=== PATIENT | male | born 1935 | race Caucasian/White ===

== ENCOUNTER 2017-02-17 06:26 | Inpatient (IN) | payer MEDICARE ==
[2017-02-17] MEDS ORDERED: SODIUM CHLORIDE 0.9% 1,000 ML IV STA (07:23)
[2017-02-17] MEDS ORDERED: MIDAZOLAM (PF) 1 MG/ML 5 ML VIAL IV STA ×2 (07:23→08:56)
--- NOTE | 2017-02-17 07:39 | XR ---
EXAMINATION TYPE: XR humerus LT DATE OF EXAM: 02/17/2017 7:20 AM CLINICAL HISTORY: pain TECHNIQUE: Frontal and lateral images of the left humerus are obtained. COMPARISON: None. FINDINGS: There is anterior shoulder dislocation noted. Widening of the AC joint may reflect distal clavicular resection. Correlate with patient history. No fracture identified. Visualized ribs are cassandra ssly intact. IMPRESSION: Anterior shoulder dislocation ICD 10 NO FRACTURE, INITIAL EVALUATION
[2017-02-17] MEDS: KETAMINE 10 MG/ML 20 ML VIAL IV ONE ×3 (08:16→09:17)
--- NOTE | 2017-02-17 08:43 | ED ---
General Adult HPI - General Chief complaint: Fall Stated complaint: Fall Time Seen by Provider: 02/17/17 07:21 Source: patient, RN notes reviewed, old records reviewed Mode of arrival: ambulatory - History of Present Illness Initial comments: This is an 81-year-old male the ER for evaluation of shoulder pain. Vision fell getting out of bed this morning. Following on an outstretched left arm. Patient only complains of left arm and left elbow pain. Patient is brought in per EMS. Patient denies hitting head, not on blood thinners. Patient's fall was mechanical in nature. Trip and fall. No prior history of shoulder injury - Related Data Home Medications Medication Instructions Recorded Confirmed Insulin Glargine,Hum.rec.anlog 16 units SQ HS 08/24/14 02/17/17 [Lantus Solostar] Levothyroxine Sodium [Synthroid] 25 mcg PO DAILY 08/24/14 02/17/17 Losartan Potassium 50 mg PO DAILY 08/24/14 02/17/17 Temazepam 15 mg PO HS PRN 08/24/14 02/17/17 rOPINIRole HCL [Ropinirole HCl] 2 mg PO TID 08/24/14 02/17/17 Ibuprofen [Motrin] 600 mg PO TID PRN 02/17/17 02/17/17 Insulin Aspart [NovoLOG] 4 unit SQ ACHS 02/17/17 02/17/17 Meclizine [Antivert] 25 mg PO Q8H PRN 02/17/17 02/17/17 Multivitamins, Thera [Multivitamin 1 tab PO DAILY@1200 02/17/17 02/17/17 (formulary)] Spironolactone-Hctz 25-25Mg 1 tab PO DAILY 02/17/17 02/17/17 [Aldactazide 25-25Mg] Previous Rx's Medication Instructions Recorded Thiamine [Vitamin B-1] 100 mg PO DAILY@1200 #30 tablet 08/29/14 Allergies Allergy/AdvReac Type Severity Reaction Status Date / Time No Known Allergies Allergy Verified 02/17/17 07:35 Review of Systems ROS Statement: Those systems with pertinent positive or pertinent negative responses have been documented in the HPI. ROS Other: All systems not noted in ROS Statement are negative. Past Medical History Past Medical History: Diabetes Mellitus, Hyperlipidemia, Hypertension, Thyroid Disorder Additional Past Medical History / Comment(s): restless leg syndrome History of Any Multi-Drug Resistant Organisms: None Reported Past Surgical History: No Surgical Hx Reported, Cholecystectomy Past Anesthesia/Blood Transfusion Reactions: No Reported Reaction Past Psychological History: No Psychological Hx Reported Smoking Status: Former smoker Past Alcohol Use History: Daily Past Drug Use History: None Reported General Exam - General Exam Comments Initial Comments: Obvious left shoulder deformity General appearance: alert, in no apparent distress Head exam: Present: atraumatic, normocephalic, normal inspection Eye exam: Present: normal appearance, PERRL, EOMI. Absent: scleral icterus, conjunctival injection, periorbital swelling ENT exam: Present: normal exam, mucous membranes moist Neck exam: Present: normal inspection. Absent: tenderness, meningismus, lymphadenopathy Respiratory exam: Present: normal lung sounds bilaterally. Absent: respiratory distress, wheezes, rales, rhonchi, stridor Cardiovascular Exam: Present: regular rate, normal rhythm, normal heart sounds. Absent: systolic murmur, diastolic murmur, rubs, gallop, clicks GI/Abdominal exam: Present: soft, normal bowel sounds. Absent: distended, tenderness, guarding, rebound, rigid Extremities exam: Present: normal inspection, full ROM, normal capillary refill. Absent: tenderness, pedal edema, joint swelling, calf tenderness Back exam: Present: normal inspection Neurological exam: Present: alert, oriented X3, CN II-XII intact Psychiatric exam: Present: normal affect, normal mood Skin exam: Present: warm, dry, intact, normal color. Absent: rash Course Vital Signs 02/17/17 06:28 Temperature 96.9 F L Pulse Rate 92 Respiratory 20 Rate Blood Pressure 139/78 O2 Sat by Pulse 98 Oximetry - Reevaluation(s) Reevaluation #1: 02/17/17 08:42 Patient's pain is controlled Reevaluation #2: 02/17/17 08:43 Patient currently awake alert breathing, able to ambulate Procedures - Orthopedic Joint Reduction Joint #1 Consent Obtained: verbal consent Time Out Performed: Yes Side: left Joint Reduction Location: shoulder Analgesia: procedural sedation Shoulder Technique Used (if applicable): traction/counter-traction, external rotation Post-Reduction Neuro Exam: intact Post-Reduction Vascular Exam: intact Post Reduction X-Ray Obtained: Yes Post Reduction X-Ray Results: reduced Splint Applied: Yes Patient Tolerated Procedure: well Medical Decision Making - Medical Decision Making 8 emailed the ER for evaluation status post fall, positive of sore dislocation, patient has shoulder relocated here in emergency room I conscious sedation, patient is currently awake and alert, post dislocation x-ray is normal and patient will be discharged home with sling - Radiology Data Radiology results: report reviewed, image reviewed Disposition Clinical Impression: Fall, Dislocation of left shoulder joint Disposition: HOME SELF-CARE Condition: Good Instructions: Shoulder Dislocation (ED) Referrals: Roma Butler MD [Primary Care Provider] - 1-2 days
[2017-02-17] MEDS ORDERED: KETAMINE 10 MG/ML 20 ML VIAL IV ONE ×2 (08:56)
--- NOTE | 2017-02-17 09:01 | XR ---
EXAMINATION TYPE: XR shoulder limited LT DATE OF EXAM: 02/17/2017 8:57 AM COMPARISON: NONE HISTORY: Post reduction TECHNIQUE: One view are submitted. FINDINGS: Persistent anterior dislocation of the humeral head. No definite fracture line. Arthropathy of the AC joint. IMPRESSION: 1. Anterior dislocation of the humeral head.
[2017-02-17 09:58] LABS: Glucose,Whole Blood 80 mg/dL (75-99)
[2017-02-17] MEDS ORDERED: DIAZEPAM 5 MG/ML 2 ML SYRINGE IVP PRN (10:09)
[2017-02-17] MEDS ORDERED: HYDROmorphone 1 MG/ML 1 ML SYRINGE IVP STA (10:13)
--- NOTE | 2017-02-17 10:25 | ED ---
Medical Decision Making - Medical Decision Making 81 male the ER for evaluation of shoulder dislocation, reduction, after initial reduction, patient shoulder read dislocated upon movement. Patient had attempt to relocate shoulder again by myself, was unsuccessful. Orthopedic surgery paged regarding recurrent left anterior shoulder dislocation Orthopedic surgery did attempt reduction in emergency room, unsuccessful, patient will be admitted for operating room left shoulder reduction - Lab Data Lab Results 02/17/17 Range/Units 09:49 POC Glucose (mg/dL) 80 (75-99) mg/dL POC Glu Mine Boss ID Cristine Wall - Radiology Data Radiology results: report reviewed (X-ray left shoulder remains with positive left shoulder dislocation), image reviewed Disposition Clinical Impression: Fall, Dislocation of left shoulder joint Disposition: ADMITTED IP TO THIS HOSP Condition: Good Instructions: Shoulder Dislocation (ED) Referrals: Roma Butler MD [Primary Care Provider] - 1-2 days
[2017-02-17] MEDS: SODIUM CHLORIDE 0.9% 1,000 ML IV STA ×2 (10:27→16:36)
[2017-02-17] MEDS ORDERED: LIDOCAINE 1% INJ 10MG/ML (20 ML MDV) SQ ONE (10:42)
--- NOTE | 2017-02-17 12:42 | CT ---
EXAMINATION TYPE: CT shoulder LT wo con DATE OF EXAM: 02/17/2017 12:22 PM COMPARISON: NONE HISTORY: Fell out of bed injured left shoulder CT DLP: 443 mGycm Automated exposure control for dose reduction was used. FINDINGS: There is dependent atelectasis within the left lung. There is stranding in the fat anterior to the left shoulder. There is an anterior dislocation of the left shoulder. There is an undisplaced fracture of the anteri or tip of the coracoid process of the scapula. No definite bony Bankart lesion is seen. No other frac tures are visualized. IMPRESSION: 1. ANTERIOR DISLOCATION LEFT SHOULDER. 2. MINIMALLY DISPLACED FRACTURE OF THE ANTERIOR TIP OF THE CORACOID PROCESS. 3. BRUISING INVOLVING THE SOFT TISSUES OF THE ANTERIOR ASPECT OF THE SHOULDER.
[2017-02-17] MEDS ORDERED: ONDANSETRON 4 MG/2 ML VIAL IVP PRN ×2 (13:06→19:42)
[2017-02-17] MEDS ORDERED: NA PHOS,M-B/NA PHOS,DI-BA 133 ML ENEMA RECTAL PRN (13:06)
[2017-02-17] MEDS ORDERED: NALOXONE 0.4 MG/ML 1 ML VIAL IV PRN (13:06)
[2017-02-17] MEDS ORDERED: MAGNESIUM HYDROXIDE 2,400 MG/10 ML CUP PO PRN (13:06)
[2017-02-17] MEDS ORDERED: ALBUTEROL NEBULIZED 2.5 MG/3 ML INHALATION PRN (14:35)
[2017-02-17] MEDS ORDERED: MECLIZINE 25 MG TAB PO PRN (14:35)
[2017-02-17] MEDS ORDERED: LORazepam 2 MG/ML SYRINGE IV PRN ×3 (14:43)
--- NOTE | 2017-02-17 15:00 | P.CONS ---
History of Present Illness - Reason for Consult Consult date: 02/17/17 Medical management Requesting physician: Hal Jose - Chief Complaint Left shoulder dislocation - History of Present Illness This is a 81-year-old male with a known past medical history of diabetes mellitus type 2, hyperlipidemia, hypertension, hypothyroidism, asthma and restless leg syndrome. Patient presents to the emergency room with complaints of left shoulder pain. Patient reports this morning while he was sleeping he asked daily rolled out of bed hitting his left shoulder. He was unable to get up. He was able to reach for the phone and called EMS. They brought him into the emergency room. X-rays of the shoulder were obtained revealing revealing a anterior shoulder dislocation. Patient initially had the shoulder relocated in the emergency room with conscious sedation at that time he did require a nonrebreather. However, before patient was discharged he moved and the shoulder dislocated again. Orthopedics were notified they tried to reduce shoulder but was unsuccessful. Therefore, patient will require to be taken to the OR. We been consulted for medical clearance. Chest x-ray, EKG, CBC and CMP have been ordered. Patient has no evidence of any acute infection. He denies any fever, chills, sweats. Denies any nausea or vomiting. Denies any bowel movement changes or urinary symptoms. She denies any rashes. Denies any chest pain or shortness of breath. Also, patient denies any loss of consciousness or hitting his head or in the fall. Patient denies any history of coronary artery disease, congestive heart failure, renal failure or CVA. He reports that he can ambulate up a flight of stairs without shortness of breath. He reports the last time he used his inhaler was about a month ago. Review of Systems Please refer to HPI otherwise unremarkable Past Medical History Past Medical History: Asthma, Diabetes Mellitus, Eye Disorder, Hyperlipidemia, Hypertension, Prostate Disorder, Thyroid Disorder Additional Past Medical History / Comment(s): IDDM type II, hypothyroid, generalized arthritis, restless leg syndrome, BPH, occasional vertigo, L eye lskmed-kruafnnchbd-bhzqf glass eye, mac degeneration L eye-gets injections. History of Any Multi-Drug Resistant Organisms: None Reported Past Surgical History: Cholecystectomy Additional Past Surgical History / Comment(s): 2013 Open cholecystectomy, colonoscopies x 3, L eye numerous surgeries and eventual enucleation. Past Anesthesia/Blood Transfusion Reactions: No Reported Reaction Past Psychological History: No Psychological Hx Reported Additional Psychological History / Comment(s): Pt resides alone. He has a cane and walker. He drives a limited amount. He has a cleaning lady. Pt performs his own ADLs. He goes to lunch with [employer] on [employer]. Smoking Status: Former smoker Past Alcohol Use History: Daily Additional Past Alcohol Use History / Comment(s): Pt started smoking as a teen and quit in 1986. He drinks 2 beers a day. Past Drug Use History: None Reported - Past Family History Father Family Medical History: No Reported History Mother Family Medical History: Cancer Additional Family Medical History / Comment(s): Mother of metastatic cancer at the age of 54yrs. old. Medications and Allergies Home Medications Medication Instructions Recorded Confirmed Type Insulin Glargine,Hum.rec.anlog 12 units SQ HS 08/24/14 02/17/17 History [Lantus Solostar] Levothyroxine Sodium [Synthroid] 25 mcg PO DAILY 08/24/14 02/17/17 History Losartan Potassium 50 mg PO DAILY 08/24/14 02/17/17 History Temazepam 15 mg PO HS PRN 08/24/14 02/17/17 History rOPINIRole HCL [Ropinirole HCl] 2 mg PO TID 08/24/14 02/17/17 History Albuterol Inhaler [Ventolin Hfa 2 puff INHALATION RT-Q4H PRN 02/17/17 02/17/17 History Inhaler] Aspirin EC [Ecotrin Low Dose] 81 mg PO DAILY 02/17/17 02/17/17 History Cholecalciferol [Vitamin D3] 1,000 unit PO DAILY 02/17/17 02/17/17 History Ferrous Sulfate [Feosol] 325 mg PO DAILY 02/17/17 02/17/17 History Fesoterodine Fumarate [Toviaz] 4 mg PO DAILY 02/17/17 02/17/17 History Folic Acid 1 mg PO DAILY 02/17/17 02/17/17 History Furosemide [Lasix] 20 mg PO DAILY 02/17/17 02/17/17 History Ibuprofen [Motrin] 600 mg PO TID PRN 02/17/17 02/17/17 History Insulin Aspart [NovoLOG] See Protocol SQ ACHS 02/17/17 02/17/17 History Meclizine [Antivert] 25 mg PO Q8H PRN 02/17/17 02/17/17 History Melatonin 20 mg PO HS 02/17/17 02/17/17 History Multivitamins, Thera [Multivitamin 1 tab PO DAILY@1200 02/17/17 02/17/17 History (formulary)] Spironolactone-Hctz 25-25Mg 1 tab PO DAILY 02/17/17 02/17/17 History [Aldactazide 25-25Mg] Tadalafil [Cialis] 20 mg PO ONCE PRN 02/17/17 02/17/17 History Tamsulosin HCl [Flomax] 0.8 mg PO HS 02/17/17 02/17/17 History Trospium Chloride [Sanctura XR] 60 mg PO DAILY 02/17/17 02/17/17 History Allergies Allergy/AdvReac Type Severity Reaction Status Date / Time No Known Allergies Allergy Verified 02/17/17 07:35 Physical Exam Vitals: Vital Signs Pulse Resp BP Pulse Ox 02/17/17 14:21 88 18 147/67 100 02/17/17 13:18 81 18 129/62 100 Intake and Output 02/16/17 02/17/17 02/17/17 22:59 06:59 14:59 Output Total 300 Balance -300 Output: Urine 300 Head normocephalic. Last eye the left eye Neck supple Lungs clear to auscultation bilaterally no wheezing or crackles Heart regular rate and rhythm S1-S2, no rub or gallop Abdomen is soft nontender nondistended positive bowel sounds no hepatosplenomegaly Extremities no edema bilateral lower extremities. Left arm +2 radial pulse. There is significant swelling and bruising in the left shoulder area. Patient is unable to move that left arm. Neuro alert and orientated to 3 Assessment and Plan Plan: 1. Anterior dislocation of the left shoulder with minimal displaced fracture of the anterior tip of the coracoid process noted on computed tomography scan of the left shoulder. Patient failed reduction of the left shoulder in the emergency room. Therefore patient has been admitted to orthopedic service and will be taken to the OR tomorrow for reduction of his shoulder. For medical clearance we'll check EKG, chest x-ray, CBC and CMP. We'll give further recommendations depending on results. 2. Insulin-dependent diabetes mellitus: Resume Lantus. We'll add sliding scale coverage. Check hemoglobin A1c. 3. Essential hypertension resume losartan and Aldactazide 4. Overactive bladder resume home medications 5. History of mild asthma: No evidence of exacerbation continue with albuterol inhaler as needed 6. Restless leg syndrome resume his Requip 7. Possible alcohol abuse: Patient reports only drinking 2 beers a day. Home medications include Folic acid, thiamine and multivitamin. Resume these medications and also place patient on the CIWA protocol 8. Hypothyroidism resume Synthroid GI prophylaxis Pepcid and DVT prophylaxis SCDs for now. We'll hold off on anticoagulations since patient is scheduled for [place] or tomorrow Thank you for this consultation. We will continue to follow along with you. Time with Patient: Greater than 30 (Greater than 50% of the total time spent in counseling and coordination of care.I performed an examination of the patient and discussed their management with the physician Benefits Representative. I have reviewed the Physician Benefits Representative's notes and agree with the documented findings and plan of care)
--- NOTE | 2017-02-17 15:22 | XR ---
EXAMINATION TYPE: XR chest 1V portable DATE OF EXAM: 02/17/2017 3:17 PM HISTORY: pre-op clearance. REFERENCE: Previous study dated 08/29/2014. FINDINGS: There is an anterior dislocation of the left shoulder. The heart is mildly enlarged. There is mild bibasilar atelectasis. Pleural spaces appear clear. IMPRESSION: 1. ANTERIOR DISLOCATION OF THE LEFT SHOULDER. 2. MILD CARDIOMEGALY. 3. BIBASILAR ATELECTASIS.
--- NOTE | 2017-02-17 15:40 | P.HPOR ---
History of Present Illness H&P Date: 02/17/17 Chief Complaint: Left shoulder injury This is a pleasant 81-year-old gentleman who presented to the emergency department today after falling directly on an outstretched arm, sustaining injury to his left shoulder. On exam and x-ray in the emergency department he was found to have a dislocated shoulder. Multiple attempts were made by the emergency department and by an orthopedic physician assistant elementary teacher to reduce the shoulder dislocation. All attempts were unsuccessful. The patient is being admitted for further evaluation and surgical intervention. Past Medical History Past Medical History: Asthma, Diabetes Mellitus, Eye Disorder, Hyperlipidemia, Hypertension, Prostate Disorder, Thyroid Disorder Additional Past Medical History / Comment(s): IDDM type II, hypothyroid, generalized arthritis, restless leg syndrome, BPH, occasional vertigo, L eye banpme-meamuxyahwb-nvntq glass eye, mac degeneration L eye-gets injections. History of Any Multi-Drug Resistant Organisms: None Reported Past Surgical History: Cholecystectomy Additional Past Surgical History / Comment(s): 2013 Open cholecystectomy, colonoscopies x 3, L eye numerous surgeries and eventual enucleation. Past Anesthesia/Blood Transfusion Reactions: No Reported Reaction Past Psychological History: No Psychological Hx Reported Additional Psychological History / Comment(s): Pt resides alone. He has a cane and walker. He drives a limited amount. He has a cleaning lady. Pt performs his own ADLs. He goes to lunch with [employer] on [employer]. Smoking Status: Former smoker Past Alcohol Use History: Daily Additional Past Alcohol Use History / Comment(s): Pt started smoking as a teen and quit in 1986. He drinks 2 beers a day. Past Drug Use History: None Reported - Past Family History Father Family Medical History: No Reported History Mother Family Medical History: Cancer Additional Family Medical History / Comment(s): Mother of metastatic cancer at the age of 54yrs. old. Medications and Allergies Home Medications Medication Instructions Recorded Confirmed Type Insulin Glargine,Hum.rec.anlog 12 units SQ HS 08/24/14 02/17/17 History [Lantus Solostar] Levothyroxine Sodium [Synthroid] 25 mcg PO DAILY 08/24/14 02/17/17 History Losartan Potassium 50 mg PO DAILY 08/24/14 02/17/17 History Temazepam 15 mg PO HS PRN 08/24/14 02/17/17 History rOPINIRole HCL [Ropinirole HCl] 2 mg PO TID 08/24/14 02/17/17 History Albuterol Inhaler [Ventolin Hfa 2 puff INHALATION RT-Q4H PRN 02/17/17 02/17/17 History Inhaler] Aspirin EC [Ecotrin Low Dose] 81 mg PO DAILY 02/17/17 02/17/17 History Cholecalciferol [Vitamin D3] 1,000 unit PO DAILY 02/17/17 02/17/17 History Ferrous Sulfate [Feosol] 325 mg PO DAILY 02/17/17 02/17/17 History Fesoterodine Fumarate [Toviaz] 4 mg PO DAILY 02/17/17 02/17/17 History Folic Acid 1 mg PO DAILY 02/17/17 02/17/17 History Furosemide [Lasix] 20 mg PO DAILY 02/17/17 02/17/17 History Ibuprofen [Motrin] 600 mg PO TID PRN 02/17/17 02/17/17 History Insulin Aspart [NovoLOG] See Protocol SQ ACHS 02/17/17 02/17/17 History Meclizine [Antivert] 25 mg PO Q8H PRN 02/17/17 02/17/17 History Melatonin 20 mg PO HS 02/17/17 02/17/17 History Multivitamins, Thera [Multivitamin 1 tab PO DAILY@1200 02/17/17 02/17/17 History (formulary)] Spironolactone-Hctz 25-25Mg 1 tab PO DAILY 02/17/17 02/17/17 History [Aldactazide 25-25Mg] Tadalafil [Cialis] 20 mg PO ONCE PRN 02/17/17 02/17/17 History Tamsulosin HCl [Flomax] 0.8 mg PO HS 02/17/17 02/17/17 History Trospium Chloride [Sanctura XR] 60 mg PO DAILY 02/17/17 02/17/17 History Allergies Allergy/AdvReac Type Severity Reaction Status Date / Time No Known Allergies Allergy Verified 02/17/17 07:35 Physical Examination This is a pleasant 81-year-old gentleman in no acute distress. He is alert and oriented 3. His daughters are present at bedside. Exam of the head neck reveal no obvious deformity. He has full cervical spine motion without difficulty or pain. There is no pain with palpation about the cervical spine or paraspinal musculature. Exam of the upper extremities reveals significant ecchymosis about the shoulder down to the wrist on the left arm. He also has bruising to the right upper extremity. There is pain with any attempt of motion to the left shoulder. He has full wrist and finger motion without difficulty or pain. Neurovascular status to the left upper extremity is intact. Exam the lower extremities reveals no obvious deformity. He can raise each leg off the bed independently without pain. No pain with internal or external rotation of the hips. He has full foot and ankle motion bilaterally. Neurovascular status to the lower extremities is intact. Results X-rays of the left shoulder reveal a dislocated glenohumeral joint. It appears to be an anterior dislocation. Computed tomography scan reveals a nondisplaced coracoid fracture. Anterior glenohumeral joint dislocation noted. Assessment and Plan (1) Fracture of coracoid process of left scapula Status: Acute (2) Dislocation of left shoulder joint Status: Acute (3) Fall Status: Acute Plan: The clinical and x-ray findings are discussed with the patient and his family. With multiple failed attempts to reduce the shoulder in the emergency department , it is recommended that he go to the operating room for general anesthesia and closed reduction with possible open reduction of the shoulder. The procedures discussed in detail including the possible risks and outcomes of surgery. We will await medical clearance by Dr. Butler.
[2017-02-17 16:12] LABS: Basophils % (A) 0 %; CH 33.2; CHCM 32.1; Eosinophils % (A) 0 %; HCT 32.4 % (39.0-53.0); HDW 2.22; HGB 10.5 gm/dL (13.0-17.5); Luc % (Auto) 2; Lymphocytes # (A) 0.6 k/uL (1.0-4.8); Lymphocytes % (A) 10 %; MCH 33.5 pg (25.0-35.0); MCHC 32.3 g/dL (31.0-37.0); MCV 103.8 fL (80.0-100.0); Macrocytosis Slight; Mean Platelet Volume 7.2; Monocytes # (A) 0.4 k/uL (0-1.0); Monocytes % (A) 7 %; Neutrophils # (A) 4.9 k/uL (1.3-7.7); Neutrophils % (A) 82 %; RBC 3.12 m/uL (4.30-5.90); RDW 12.7 % (11.5-15.5); WBC (Perox) 6.13
[2017-02-17 16:31] LABS: ALT 34 U/L (21-72); AST 67 U/L (17-59); Alkaline Phosphatase 63 U/L (38-126); Anion Gap 8 mmol/L; Blood Urea Nitrogen 21 mg/dL (9-20); Calcium 8.7 mg/dL (8.4-10.2); Carbon Dioxide 24 mmol/L (22-30); Chloride 103 mmol/L (98-107); Glucose 70 mg/dL (74-99); Non-African American GFR(MDRD) >60 (>60 ml/min/1.73 sqM); Potassium 4.7 mmol/L (3.5-5.1); Sodium 135 mmol/L (137-145); Total Protein 5.7 g/dL (6.3-8.2)
[2017-02-17] MEDS: LEVOTHYROXINE 25 MCG TAB PO SCH (16:36)
[2017-02-17] MEDS: FAMOTIDINE 20 MG TAB PO SCH (16:36)
[2017-02-17] MEDS: LOSARTAN 50 MG TAB PO SCH (16:36)
[2017-02-17] MEDS ORDERED: MORPHINE SULFATE 2 MG/ML SYRINGE IVP PRN (16:51)
[2017-02-17 17:39] LABS: Glucose,Whole Blood 64 mg/dL (75-99)
[2017-02-17] MEDS: INSULIN LISPRO (humaLOG) 300 UNIT/3 ML VIAL SQ SCH ×2 (18:09→20:32)
[2017-02-17] MEDS: HYDROmorphone 1 MG/ML 1 ML SYRINGE IVP PRN (20:08)
[2017-02-17 20:20] LABS: Glucose,Whole Blood 87 mg/dL (75-99)
[2017-02-17] MEDS ORDERED: TEMAZEPAM 15 MG CAP PO PRN ×2 (21:00)
[2017-02-17] MEDS: MELATONIN 5 MG TABLET PO SCH (21:06)
[2017-02-17] MEDS: TAMSULOSIN 0.4 MG CAP.ER.24H PO SCH (21:06)
[2017-02-17] MEDS: INSULIN GLARGINE 100 UNIT/ML 10 ML VIAL SQ SCH (21:08)
[2017-02-17 21:34] LABS: Hemoglobin A1C 6.8 % (4.2-6.1)
[2017-02-18] MEDS: LEVOTHYROXINE 25 MCG TAB PO SCH (05:57)
[2017-02-18] MEDS: HYDROmorphone 1 MG/ML 1 ML SYRINGE IVP PRN ×2 (05:57→09:30)
[2017-02-18] MEDS: INSULIN LISPRO (humaLOG) 300 UNIT/3 ML VIAL SQ SCH ×4 (07:52→20:28)
[2017-02-18 07:55] LABS: Glucose,Whole Blood 152 mg/dL (75-99)
[2017-02-18] MEDS: FERROUS SULFATE 325 MG TAB PO SCH (07:55)
[2017-02-18] MEDS: FUROSEMIDE 20 MG TAB PO SCH (07:55)
[2017-02-18] MEDS: FAMOTIDINE 20 MG TAB PO SCH (07:55)
[2017-02-18] MEDS: CHOLECALCIFEROL 1,000 UNIT TAB PO SCH (07:55)
[2017-02-18] MEDS: OXYBUTYNIN XL 5 MG TAB.ER.24 PO SCH (07:56)
[2017-02-18] MEDS: LOSARTAN 50 MG TAB PO SCH (07:56)
[2017-02-18] MEDS: SPIRONOLACTONE-HCTZ 25-25MG 1 EACH TAB PO SCH (07:57)
[2017-02-18 07:58] LABS: Basophils % (A) 1 %; CH 33.6; CHCM 32.8; Eosinophils % (A) 0 %; HCT 28.2 % (39.0-53.0); HDW 2.29; HGB 9.3 gm/dL (13.0-17.5); Luc # (Auto) 0.07; Luc % (Auto) 2; Lymphocytes # (A) 0.5 k/uL (1.0-4.8); Lymphocytes % (A) 10 %; MCH 33.9 pg (25.0-35.0); MCV 102.8 fL (80.0-100.0); Macrocytosis Slight; Mean Platelet Volume 7.2; Monocytes # (A) 0.4 k/uL (0-1.0); Monocytes % (A) 10 %; Neutrophils # (A) 3.4 k/uL (1.3-7.7); Neutrophils % (A) 77 %; RBC 2.75 m/uL (4.30-5.90); RDW 12.5 % (11.5-15.5); WBC 4.4 k/uL (3.8-10.6); WBC (Perox) 4.55
[2017-02-18 08:15] LABS: ALT 35 U/L (21-72); AST 60 U/L (17-59); Alkaline Phosphatase 57 U/L (38-126); Anion Gap 8 mmol/L; Blood Urea Nitrogen 18 mg/dL (9-20); Calcium 8.5 mg/dL (8.4-10.2); Carbon Dioxide 20 mmol/L (22-30); Chloride 104 mmol/L (98-107); Glucose 149 mg/dL (74-99); Non-African American GFR(MDRD) >60 (>60 ml/min/1.73 sqM); Potassium 4.4 mmol/L (3.5-5.1); Sodium 132 mmol/L (137-145); Total Bilirubin 1.1 mg/dL (0.2-1.3); Total Protein 4.9 g/dL (6.3-8.2)
[2017-02-18] MEDS ORDERED: OXYBUTYNIN XL 5 MG TAB.ER.24 PO SCH (09:00)
--- NOTE | 2017-02-18 10:49 | P.PN ---
Subjective Patient is awaiting for surgery today at 1 Objective - Vital Signs Vital signs: Vital Signs Temp 97.9 F 02/18/17 07:00 Pulse 83 02/18/17 07:00 Resp 16 02/18/17 07:00 BP 114/54 02/18/17 07:00 Pulse Ox 97 02/18/17 07:00 Intake & Output 02/17/17 02/18/17 02/18/17 18:59 06:59 18:59 Intake Total 1218 Output Total 475 500 Balance -475 718 Intake: Intake, IV Titration 1100 Amount Sodium Chloride 0.9% 1, 1100 000 ml @ 100 mls/hr IV . Q10H [facility] Rx#:[id number] Oral 118 Output: Urine 475 500 Other: Voiding Method Urinal # Voids 1 - Exam General: The patient is awake and alert, in no distress Eye: there is normal conjunctiva bilaterally. Neck: The neck is supple, there is no JVD. Cardiovascular: Normal S1-S2, no S3-S4, no murmurs. Respiratory: Lungs clear to auscultation bilaterally Gastrointestinal: Abdomen is soft, nontender Musculoskeletal: There is no pedal edema. Neurological:. Speech is normal. Skin: Skin is warm and dry - Labs CBC & Chem 7: 02/18/17 07:09 02/18/17 07:09 Labs: Abnormal Lab Results - Last 24 Hours (Table) 02/17/17 02/17/17 02/17/17 Range/Units 15:55 15:55 15:55 RBC 3.12 L (4.30-5.90) m/uL Hgb 10.5 L (13.0-17.5) gm/dL Hct 32.4 L (39.0-53.0) % MCV 103.8 H (80.0-100.0) fL Plt Count (150-450) k/uL Lymphocytes # 0.6 L (1.0-4.8) k/uL Sodium 135 L (137-145) mmol/L Carbon Dioxide (22-30) mmol/L BUN 21 H (9-20) mg/dL Glucose 70 L (74-99) mg/dL POC Glucose (mg/dL) (75-99) mg/dL Hemoglobin A1c 6.8 H (4.2-6.1) % AST 67 H (17-59) U/L Total Protein 5.7 L (6.3-8.2) g/dL Albumin (3.5-5.0) g/dL 02/17/17 02/18/17 02/18/17 Range/Units 17:31 07:09 07:09 RBC 2.75 L (4.30-5.90) m/uL Hgb 9.3 L (13.0-17.5) gm/dL Hct 28.2 L (39.0-53.0) % MCV 102.8 H (80.0-100.0) fL Plt Count 139 L (150-450) k/uL Lymphocytes # 0.5 L (1.0-4.8) k/uL Sodium 132 L (137-145) mmol/L Carbon Dioxide 20 L (22-30) mmol/L BUN (9-20) mg/dL Glucose 149 H (74-99) mg/dL POC Glucose (mg/dL) 64 L (75-99) mg/dL Hemoglobin A1c (4.2-6.1) % AST 60 H (17-59) U/L Total Protein 4.9 L (6.3-8.2) g/dL Albumin 2.9 L (3.5-5.0) g/dL 02/18/17 Range/Units 07:49 RBC (4.30-5.90) m/uL Hgb (13.0-17.5) gm/dL Hct (39.0-53.0) % MCV (80.0-100.0) fL Plt Count (150-450) k/uL Lymphocytes # (1.0-4.8) k/uL Sodium (137-145) mmol/L Carbon Dioxide (22-30) mmol/L BUN (9-20) mg/dL Glucose (74-99) mg/dL POC Glucose (mg/dL) 152 H (75-99) mg/dL Hemoglobin A1c (4.2-6.1) % AST (17-59) U/L Total Protein (6.3-8.2) g/dL Albumin (3.5-5.0) g/dL Assessment and Plan Plan: 1. Anterior dislocation of the left shoulder with minimal displaced fracture of the anterior tip of the coracoid process noted on computed tomography scan of the left shoulder. Patient failed reduction of the left shoulder in the emergency room. Therefore patient has been admitted to orthopedic service and will be taken to the OR today for reduction of his shoulder. 2. Insulin-dependent diabetes mellitus: Resume Lantus. We'll add sliding scale coverage. Check hemoglobin A1c. 3. Essential hypertension resume losartan and Aldactazide 4. Overactive bladder resume home medications 5. History of mild asthma: No evidence of exacerbation continue with albuterol inhaler as needed 6. Restless leg syndrome resume his Requip 7. Possible alcohol abuse: Patient reports only drinking 2 beers a day. Home medications include Folic acid, thiamine and multivitamin. Resume these medications and also place patient on the CIWA protocol 8. Hypothyroidism resume Synthroid
[2017-02-18] MEDS: FOLIC ACID 1 MG TAB PO SCH (11:00)
[2017-02-18] MEDS: MULTIVITAMINS, THERA 1 EACH TAB PO SCH (11:01)
[2017-02-18] MEDS: THIAMINE 100 MG TAB PO SCH (11:01)
[2017-02-18] MEDS ORDERED: ROPIVACAINE 5 MG/ML 30 ML VIAL ONE (11:03)
[2017-02-18] MEDS ORDERED: IV FLUID CONTINUATION 200 ML IV ONE (11:03)
[2017-02-18] MEDS ORDERED: PROPOFOL 10 MG/ML 20 ML VIAL IV ONE (11:03)
[2017-02-18] MEDS ORDERED: LACTATED RINGERS 1,000 ML IV ONE (11:10)
[2017-02-18] MEDS ORDERED: SENNOSIDES-DOCUSATE SODIUM 1 EACH TAB PO PRN (11:32)
[2017-02-18] MEDS ORDERED: HYDROmorphone 1 MG/ML 1 ML SYRINGE IVP PRN ×3 (11:32)
[2017-02-18] MEDS ORDERED: diphenhydrAMINE 25 MG CAP PO PRN (11:32)
--- NOTE | 2017-02-18 11:38 | XR ---
EXAMINATION TYPE: XR shoulder limited LT DATE OF EXAM: 02/18/2017 11:34 AM COMPARISON: NONE HISTORY: ] Reduction left shoulder Fluoroscopy was provided for closed left shoulder reduction. 2 paper images are submitted.
--- NOTE | 2017-02-18 11:52 | XR ---
EXAMINATION TYPE: XR shoulder limited LT DATE OF EXAM: 02/18/2017 11:46 AM CLINICAL HISTORY: pain COMPARISON: 02/17/2017 TECHNIQUE: Single view of the left shoulder is submitted. FINDINGS: Relocation of the humerus relative to the glenoid. No definite evidence for fracture. Posto perative changes distal clavicle. IMPRESSION: 1. Appropriate reduction of the left shoulder. ICD 10 NO FRACTURE, INITIAL EVALUATION
[2017-02-18 11:56] LABS: Glucose,Whole Blood 134 mg/dL (75-99)
[2017-02-18 12:30] LABS: Glucose,Whole Blood 147 mg/dL (75-99)
[2017-02-18] MEDS: LACTATED RINGERS 1,000 ML IV SCH (14:33)
[2017-02-18 16:45] LABS: Glucose,Whole Blood 206 mg/dL (75-99)
[2017-02-18 20:13] LABS: Glucose,Whole Blood 241 mg/dL (75-99)
[2017-02-18] MEDS: INSULIN GLARGINE 100 UNIT/ML 10 ML VIAL SQ SCH (20:27)
[2017-02-18] MEDS: TAMSULOSIN 0.4 MG CAP.ER.24H PO SCH (20:27)
[2017-02-18] MEDS: MELATONIN 5 MG TABLET PO SCH (20:28)
[2017-02-18] MEDS ORDERED: HYDROmorphone 1 MG/ML 1 ML SYRINGE ONE (23:22)
[2017-02-19] MEDS: HYDROmorphone 1 MG/ML 1 ML SYRINGE IVP PRN ×2 (07:18→12:20)
[2017-02-19] MEDS: LACTATED RINGERS 1,000 ML IV SCH ×3 (07:28→17:56)
[2017-02-19 07:41] LABS: Glucose,Whole Blood 151 mg/dL (75-99)
[2017-02-19] MEDS: SPIRONOLACTONE-HCTZ 25-25MG 1 EACH TAB PO SCH (07:45)
[2017-02-19] MEDS: OXYBUTYNIN XL 5 MG TAB.ER.24 PO SCH (07:46)
[2017-02-19] MEDS: FAMOTIDINE 20 MG TAB PO SCH (07:46)
[2017-02-19] MEDS: FUROSEMIDE 20 MG TAB PO SCH (07:46)
[2017-02-19] MEDS: FERROUS SULFATE 325 MG TAB PO SCH (07:47)
[2017-02-19] MEDS: LOSARTAN 50 MG TAB PO SCH (07:47)
[2017-02-19] MEDS: CHOLECALCIFEROL 1,000 UNIT TAB PO SCH (07:48)
[2017-02-19] MEDS: LEVOTHYROXINE 25 MCG TAB PO SCH (07:49)
[2017-02-19 08:26] LABS: Basophils % (A) 0 %; CH 33.1; CHCM 32.6; Eosinophils % (A) 0 %; HCT 26.1 % (39.0-53.0); HDW 2.17; HGB 8.4 gm/dL (13.0-17.5); Luc # (Auto) 0.09; Luc % (Auto) 2; Lymphocytes # (A) 0.5 k/uL (1.0-4.8); Lymphocytes % (A) 11 %; MCH 32.7 pg (25.0-35.0); MCHC 32.1 g/dL (31.0-37.0); MCV 102.1 fL (80.0-100.0); Macrocytosis Slight; Monocytes # (A) 0.5 k/uL (0-1.0); Monocytes % (A) 9 %; Neutrophils # (A) 3.7 k/uL (1.3-7.7); Neutrophils % (A) 78 %; RBC 2.56 m/uL (4.30-5.90); RDW 12.6 % (11.5-15.5); WBC 4.8 k/uL (3.8-10.6); WBC (Perox) 5.07
[2017-02-19 08:53] LABS: ALT 33 U/L (21-72); AST 60 U/L (17-59); Alkaline Phosphatase 51 U/L (38-126); Anion Gap 5 mmol/L; Blood Urea Nitrogen 19 mg/dL (9-20); Calcium 8.4 mg/dL (8.4-10.2); Carbon Dioxide 27 mmol/L (22-30); Chloride 101 mmol/L (98-107); Glucose 131 mg/dL (74-99); Non-African American GFR(MDRD) >60 (>60 ml/min/1.73 sqM); Potassium 3.9 mmol/L (3.5-5.1); Sodium 133 mmol/L (137-145); Total Bilirubin 1.1 mg/dL (0.2-1.3); Total Protein 4.6 g/dL (6.3-8.2)
--- NOTE | 2017-02-19 10:18 | P.PN ---
Subjective Principal diagnosis: Status post dislocation left shoulder. Status post closed reduction left shoulder. This is an 81-year-old male who is status post closed reduction of the left shoulder. He is doing well from orthopedic standpoint. He does have some soreness to the left shoulder. He is not yet ambulated. Objective - Vital Signs Vital signs: Vital Signs Temp 97.9 F 02/19/17 07:57 Pulse 85 02/19/17 07:57 Resp 16 02/19/17 07:57 BP 98/54 02/19/17 07:57 Pulse Ox 92 L 02/19/17 07:57 Intake & Output 02/18/17 02/19/17 02/19/17 18:59 06:59 18:59 Intake Total 600 Balance 600 Weight 79.379 kg Intake: Intake, IV Titration 600 Amount Lactated Ringers 1,000 ml 600 @ 100 mls/hr IV .Q10H [facility] Rx#:[id number] Other: Voiding Method Urinal Urinal # Voids 4 - Exam This is an 81-year-old male in no acute distress. He is alert and oriented. Exam of left shoulder reveals significant ecchymosis. There is no tenderness with palpation about the shoulder. He has full finger motion. He is able to slightly extend the wrist and thumb but has some difficulty in doing so. Capillary refill to the fingers is less than 3 seconds. - Labs CBC & Chem 7: 02/19/17 07:29 02/19/17 07:29 Labs: Abnormal Lab Results - Last 24 Hours (Table) 02/18/17 02/18/17 02/19/17 Range/Units 16:39 20:10 07:29 RBC 2.56 L (4.30-5.90) m/uL Hgb 8.4 L (13.0-17.5) gm/dL Hct 26.1 L (39.0-53.0) % MCV 102.1 H (80.0-100.0) fL Plt Count 126 L (150-450) k/uL Lymphocytes # 0.5 L (1.0-4.8) k/uL Sodium (137-145) mmol/L Glucose (74-99) mg/dL POC Glucose (mg/dL) 206 H 241 H (75-99) mg/dL AST (17-59) U/L Total Protein (6.3-8.2) g/dL Albumin (3.5-5.0) g/dL 02/19/17 02/19/17 Range/Units 07:29 07:36 RBC (4.30-5.90) m/uL Hgb (13.0-17.5) gm/dL Hct (39.0-53.0) % MCV (80.0-100.0) fL Plt Count (150-450) k/uL Lymphocytes # (1.0-4.8) k/uL Sodium 133 L (137-145) mmol/L Glucose 131 H (74-99) mg/dL POC Glucose (mg/dL) 151 H (75-99) mg/dL AST 60 H (17-59) U/L Total Protein 4.6 L (6.3-8.2) g/dL Albumin 2.5 L (3.5-5.0) g/dL Assessment and Plan (1) Fracture of coracoid process of left scapula Status: Acute (2) Dislocation of left shoulder joint Status: Acute (3) Fall Status: Acute Plan: The clinical findings are discussed with the patient. We'll continue care and begin physical therapy and occupational therapy. It is recommended that he go to inpatient rehab with his poor balance and unsteady gait. He is a significant fall risk at this time.
[2017-02-19] MEDS: INSULIN LISPRO (humaLOG) 300 UNIT/3 ML VIAL SQ SCH ×4 (10:20→21:20)
[2017-02-19 12:16] LABS: Glucose,Whole Blood 181 mg/dL (75-99)
[2017-02-19] MEDS: FOLIC ACID 1 MG TAB PO SCH (12:22)
[2017-02-19] MEDS: MULTIVITAMINS, THERA 1 EACH TAB PO SCH (12:22)
[2017-02-19] MEDS: THIAMINE 100 MG TAB PO SCH (12:22)
[2017-02-19] MEDS ORDERED: LACTULOSE 20 GM/30 ML CUP PO ONE (14:12)
--- NOTE | 2017-02-19 14:14 | P.PN ---
Subjective Patient is doing well today. His pain is well controlled. He is complaining of constipation. Objective - Vital Signs Vital signs: Vital Signs Temp 97.9 F 02/19/17 07:57 Pulse 85 02/19/17 07:57 Resp 16 02/19/17 07:57 BP 98/54 02/19/17 07:57 Pulse Ox 92 L 02/19/17 07:57 Intake & Output 02/18/17 02/19/17 02/19/17 18:59 06:59 18:59 Intake Total 600 Balance 600 Weight 79.379 kg Intake: Intake, IV Titration 600 Amount Lactated Ringers 1,000 ml 600 @ 100 mls/hr IV .Q10H [facility] Rx#:[id number] Other: Voiding Method Urinal Urinal # Voids 4 - Exam General: The patient is awake and alert, in no distress Eye: there is normal conjunctiva bilaterally. Neck: The neck is supple, there is no JVD. Cardiovascular: Normal S1-S2, no S3-S4, no murmurs. Respiratory: Lungs clear to auscultation bilaterally Gastrointestinal: Abdomen is soft, nontender Musculoskeletal: There is no pedal edema. Left arm in sling Neurological:. Speech is normal. Skin: Skin is warm and dry - Labs CBC & Chem 7: 02/19/17 07:29 02/19/17 07:29 Labs: Abnormal Lab Results - Last 24 Hours (Table) 02/18/17 02/18/17 02/19/17 Range/Units 16:39 20:10 07:29 RBC 2.56 L (4.30-5.90) m/uL Hgb 8.4 L (13.0-17.5) gm/dL Hct 26.1 L (39.0-53.0) % MCV 102.1 H (80.0-100.0) fL Plt Count 126 L (150-450) k/uL Lymphocytes # 0.5 L (1.0-4.8) k/uL Sodium (137-145) mmol/L Glucose (74-99) mg/dL POC Glucose (mg/dL) 206 H 241 H (75-99) mg/dL AST (17-59) U/L Total Protein (6.3-8.2) g/dL Albumin (3.5-5.0) g/dL 02/19/17 02/19/17 02/19/17 Range/Units 07:29 07:36 12:10 RBC (4.30-5.90) m/uL Hgb (13.0-17.5) gm/dL Hct (39.0-53.0) % MCV (80.0-100.0) fL Plt Count (150-450) k/uL Lymphocytes # (1.0-4.8) k/uL Sodium 133 L (137-145) mmol/L Glucose 131 H (74-99) mg/dL POC Glucose (mg/dL) 151 H 181 H (75-99) mg/dL AST 60 H (17-59) U/L Total Protein 4.6 L (6.3-8.2) g/dL Albumin 2.5 L (3.5-5.0) g/dL Assessment and Plan Plan: 1. Anterior dislocation of the left shoulder with minimal displaced fracture of the anterior tip of the coracoid process noted on computed tomography scan of the left shoulder. Status post closed reduction in the operation room. Orthopedic following closely. 2. Insulin-dependent diabetes mellitus: Resume Lantus. We'll add sliding scale coverage. Check hemoglobin A1c. 3. Essential hypertension resume losartan and Aldactazide 4. Overactive bladder resume home medications 5. History of mild asthma: No evidence of exacerbation continue with albuterol inhaler as needed 6. Restless leg syndrome resume his Requip 7. Possible alcohol abuse: Patient reports only drinking 2 beers a day. Home medications include Folic acid, thiamine and multivitamin. Resume these medications and also place patient on the CIWA protocol 8. Hypothyroidism resume Synthroid Give 1 dose of lactulose a day for constipation Continue pain control and postoperative care
[2017-02-19] MEDS: HYDROcodone/APAP 5-325MG 1 EACH TAB PO PRN (15:43)
[2017-02-19 17:46] LABS: Glucose,Whole Blood 183 mg/dL (75-99)
[2017-02-19] MEDS: TAMSULOSIN 0.4 MG CAP.ER.24H PO SCH (20:37)
[2017-02-19] MEDS: MELATONIN 5 MG TABLET PO SCH (20:37)
[2017-02-19] MEDS: INSULIN GLARGINE 100 UNIT/ML 10 ML VIAL SQ SCH (21:20)
[2017-02-19 21:25] LABS: Glucose,Whole Blood 200 mg/dL (75-99)
[2017-02-20] MEDS: HYDROcodone/APAP 5-325MG 1 EACH TAB PO PRN ×2 (02:23→08:08)
[2017-02-20 07:35] LABS: Glucose,Whole Blood 161 mg/dL (75-99)
[2017-02-20] MEDS: LEVOTHYROXINE 25 MCG TAB PO SCH (07:59)
[2017-02-20] MEDS: FAMOTIDINE 20 MG TAB PO SCH (08:01)
[2017-02-20] MEDS: CHOLECALCIFEROL 1,000 UNIT TAB PO SCH (08:01)
[2017-02-20] MEDS: SPIRONOLACTONE-HCTZ 25-25MG 1 EACH TAB PO SCH (08:01)
[2017-02-20] MEDS: FERROUS SULFATE 325 MG TAB PO SCH (08:01)
[2017-02-20] MEDS: LOSARTAN 50 MG TAB PO SCH (08:02)
[2017-02-20] MEDS: FUROSEMIDE 20 MG TAB PO SCH (08:02)
[2017-02-20] MEDS: OXYBUTYNIN XL 5 MG TAB.ER.24 PO SCH (08:03)
[2017-02-20] MEDS: LACTATED RINGERS 1,000 ML IV SCH ×2 (08:06→15:36)
--- NOTE | 2017-02-20 08:12 | FL ---
EXAMINATION TYPE: FL guidance operating room DATE OF EXAM: 02/18/2017 11:34 AM HISTORY: Flouroscopy time 7 seconds of fluoroscopy provided. IMPRESSION: 1. Fluoroscopy time.
--- NOTE | 2017-02-20 08:31 | P.PN ---
Subjective Principal diagnosis: Status post closed reduction left shoulder This is a 81 year-old male post closed reduction left shoulder. The patient was evaluated at the bedside today. The patient denies nausea, vomiting, abdominal pain, shortness of breath, and chest pain this morning. He states his pain is controlled at this time. The patient has not been up with physical therapy yet. Objective - Vital Signs Vital signs: Vital Signs Temp 97.5 F L 02/20/17 08:25 Pulse 84 02/20/17 08:25 Resp 16 02/20/17 08:25 BP 116/56 02/20/17 08:25 Pulse Ox 95 02/20/17 08:25 Intake & Output 02/19/17 02/20/17 02/20/17 18:59 06:59 18:59 Intake Total 600 800 Output Total 500 450 Balance 100 350 Weight 79.379 kg Intake: IV 800 Lactated Ringers 1,000 ml 800 @ 100 mls/hr IV .Q10H [facility] Rx#:[id number] Intake, IV Titration 600 Amount Lactated Ringers 1,000 ml 600 @ 100 mls/hr IV .Q10H [facility] Rx#:[id number] Output: Urine 500 450 Other: Voiding Method Urinal Urinal # Voids 1 1 - Exam The patient is in no acute distress. He is alert and oriented 3. Exam of the left upper extremity reveals bruising to the upper arm and shoulder. Sling is in place. The patient is able to wiggle his fingers freely. Patient has good hand and wrist motion. Range of motion is not tested due to recent dislocation. There is pain upon palpation to the anterior shoulder. Sensation and circulatory status is intact. - Labs CBC & Chem 7: 02/19/17 07:29 02/19/17 07:29 Labs: Abnormal Lab Results - Last 24 Hours (Table) 02/19/17 02/19/17 02/19/17 Range/Units 07:29 07:29 12:10 RBC 2.56 L (4.30-5.90) m/uL Hgb 8.4 L (13.0-17.5) gm/dL Hct 26.1 L (39.0-53.0) % MCV 102.1 H (80.0-100.0) fL Plt Count 126 L (150-450) k/uL Lymphocytes # 0.5 L (1.0-4.8) k/uL Sodium 133 L (137-145) mmol/L Glucose 131 H (74-99) mg/dL POC Glucose (mg/dL) 181 H (75-99) mg/dL AST 60 H (17-59) U/L Total Protein 4.6 L (6.3-8.2) g/dL Albumin 2.5 L (3.5-5.0) g/dL 02/19/17 02/19/17 02/20/17 Range/Units 17:25 21:20 07:29 RBC (4.30-5.90) m/uL Hgb (13.0-17.5) gm/dL Hct (39.0-53.0) % MCV (80.0-100.0) fL Plt Count (150-450) k/uL Lymphocytes # (1.0-4.8) k/uL Sodium (137-145) mmol/L Glucose (74-99) mg/dL POC Glucose (mg/dL) 183 H 200 H 161 H (75-99) mg/dL AST (17-59) U/L Total Protein (6.3-8.2) g/dL Albumin (3.5-5.0) g/dL Assessment and Plan (1) Fall Status: Acute (2) Dislocation of left shoulder joint Status: Acute Plan: The clinical findings were discussed with the patient. We are awaiting physical and occupational therapy evaluations for rehab placement. The patient will be transferred to skilled rehab upon bed availability and insurance verification. The patient is orthopedically stable for discharge today. Continue sling and nonweightbearing to the left upper extremity. We will continue to follow the patient closely.
[2017-02-20] MEDS: INSULIN LISPRO (humaLOG) 300 UNIT/3 ML VIAL SQ SCH ×4 (08:36→21:44)
[2017-02-20 08:50] LABS: Basophils % (A) 0 %; CH 33.5; Eosinophils % (A) 0 %; HDW 2.22; HGB 8.4 gm/dL (13.0-17.5); Luc # (Auto) 0.11; Luc % (Auto) 2; Lymphocytes # (A) 0.7 k/uL (1.0-4.8); Lymphocytes % (A) 14 %; MCHC 32.3 g/dL (31.0-37.0); MCV 102.2 fL (80.0-100.0); Macrocytosis Slight; Mean Platelet Volume 7.5; Monocytes # (A) 0.6 k/uL (0-1.0); Monocytes % (A) 12 %; Neutrophils # (A) 3.5 k/uL (1.3-7.7); Neutrophils % (A) 71 %; RBC 2.54 m/uL (4.30-5.90); RDW 12.9 % (11.5-15.5); WBC 4.9 k/uL (3.8-10.6); WBC (Perox) 5.14
[2017-02-20 09:25] LABS: ALT 34 U/L (21-72); AST 61 U/L (17-59); Alkaline Phosphatase 50 U/L (38-126); Anion Gap 6 mmol/L; Blood Urea Nitrogen 18 mg/dL (9-20); Calcium 8.5 mg/dL (8.4-10.2); Carbon Dioxide 27 mmol/L (22-30); Chloride 100 mmol/L (98-107); Glucose 150 mg/dL (74-99); Non-African American GFR(MDRD) >60 (>60 ml/min/1.73 sqM); Potassium 4.1 mmol/L (3.5-5.1); Sodium 133 mmol/L (137-145); Total Bilirubin 1.3 mg/dL (0.2-1.3); Total Protein 4.8 g/dL (6.3-8.2)
--- NOTE | 2017-02-20 10:24 | P.PN ---
Subjective Status post closed reduction of left shoulder Patient is sitting up in bedside chair. Pain is controlled. Arm in sling. Patient had urinary retention last night he was straight cathed for 400 mL's. He is also complaining of constipation. It's been was 5 days since his last bowel movement. He denies any abdominal pain. He is passing gas. He denies any chest pain or shortness of breath. Denies any nausea or vomiting. Patient will possibly be discharged later on today or tomorrow to [facility] when bed is available Objective - Vital Signs Vital signs: Vital Signs Temp 97.5 F L 02/20/17 08:25 Pulse 84 02/20/17 08:25 Resp 16 02/20/17 08:25 BP 116/56 02/20/17 08:25 Pulse Ox 95 02/20/17 08:25 Intake & Output 02/19/17 02/20/17 02/20/17 18:59 06:59 18:59 Intake Total 600 800 Output Total 500 450 450 Balance 100 350 -450 Weight 79.379 kg 79.379 kg Intake: IV 800 Lactated Ringers 1,000 ml 800 @ 100 mls/hr IV .Q10H [facility] Rx#:[id number] Intake, IV Titration 600 Amount Lactated Ringers 1,000 ml 600 @ 100 mls/hr IV .Q10H [facility] Rx#:[id number] Output: Urine 500 450 450 Other: Voiding Method Urinal Urinal Urinal # Voids 1 1 1 - Exam Head normocephalic Neck supple Lungs clear to auscultation bilaterally no wheezing or crackles Heart regular rate and rhythm S1-S2, no rub or gallop Abdomen is soft nontender nondistended positive bowel sounds no hepatosplenomegaly Extremities no edema. Left arm in sling. +2 radial pulse. Extensive bruising along the left shoulder and left arm soft Neuro alert and orientated to 3 - Labs CBC & Chem 7: 02/20/17 08:25 02/20/17 08:25 Labs: Abnormal Lab Results - Last 24 Hours (Table) 02/19/17 02/19/17 02/19/17 Range/Units 12:10 17:25 21:20 RBC (4.30-5.90) m/uL Hgb (13.0-17.5) gm/dL Hct (39.0-53.0) % MCV (80.0-100.0) fL Plt Count (150-450) k/uL Lymphocytes # (1.0-4.8) k/uL Sodium (137-145) mmol/L Glucose (74-99) mg/dL POC Glucose (mg/dL) 181 H 183 H 200 H (75-99) mg/dL AST (17-59) U/L Total Protein (6.3-8.2) g/dL Albumin (3.5-5.0) g/dL 02/20/17 02/20/17 02/20/17 Range/Units 07:29 08:25 08:25 RBC 2.54 L (4.30-5.90) m/uL Hgb 8.4 L (13.0-17.5) gm/dL Hct 26.0 L (39.0-53.0) % MCV 102.2 H (80.0-100.0) fL Plt Count 127 L (150-450) k/uL Lymphocytes # 0.7 L (1.0-4.8) k/uL Sodium 133 L (137-145) mmol/L Glucose 150 H (74-99) mg/dL POC Glucose (mg/dL) 161 H (75-99) mg/dL AST 61 H (17-59) U/L Total Protein 4.8 L (6.3-8.2) g/dL Albumin 2.5 L (3.5-5.0) g/dL Assessment and Plan Plan: 1. Anterior dislocation of the left shoulder with minimal displaced fracture of the anterior tip of the coracoid process noted on computed tomography scan of the left shoulder. Patient failed reduction of the left shoulder in the emergency room. Patient is status post closed reduction of left shoulder. Postop day #2 2. Insulin-dependent diabetes mellitus: Resume Lantus. We'll add sliding scale coverage. Hemoglobin A1c 6.8 3. Essential hypertension resume losartan and Aldactazide 4. Overactive bladder resume home medications 5. History of mild asthma: No evidence of exacerbation continue with albuterol inhaler as needed 6. Restless leg syndrome resume his Requip 7. Possible alcohol abuse: Patient reports only drinking 2 beers a day. Home medications include Folic acid, thiamine and multivitamin. Resume these medications and also place patient on the CIWA protocol. Patient not requiring Ativan 8. Hypothyroidism resume Synthroid 9. Iron deficiency anemia: Continue iron supplement. Continue monitoring hemoglobin. Hemoglobin 8.4 today 10. Urinary retention with known prostate disorder. Continue with Flomax. Check urinalysis with culture and sensitivity rule out UTI. Check postvoid residual. Also may be related to constipation or overactive bladder medication the oxybutynin. Discontinue the oxybutynin. For his constipation we'll give Colace and lactulose. If no bowel movement after lactulose will give a soapsuds enema. I performed an examination of the patient and discussed their management with the physician Turret Lathe Tender. I have reviewed the Physician Turret Lathe Tender's notes and agree with the documented findings and plan of care
[2017-02-20] MEDS ORDERED: LACTULOSE 20 GM/30 ML CUP PO ONE (11:00)
[2017-02-20] MEDS: DOCUSATE 100 MG CAP PO SCH ×2 (11:25→21:43)
[2017-02-20] MEDS: THIAMINE 100 MG TAB PO SCH (11:27)
[2017-02-20] MEDS: MULTIVITAMINS, THERA 1 EACH TAB PO SCH (11:27)
[2017-02-20] MEDS: FOLIC ACID 1 MG TAB PO SCH (11:27)
[2017-02-20 11:47] LABS: Glucose,Whole Blood 229 mg/dL (75-99)
[2017-02-20 13:17] LABS: Appearance,Urine Clear (Clear); Bilirubin,Urine Negative (Negative); Glucose,Urine (UA) Negative (Negative); Ketones,Urine 1+ (Negative); Leukocyte Esterase,Urine Negative (Negative); Nitrite,Urine Negative (Negative); Protein,Urine Negative (Negative); Specific Gravity,Urine 1.009 (1.001-1.035); UA Billing (MACRO vs. MICRO) CHEM; Urobilinogen,Urine <2.0 mg/dL (<2.0)
[2017-02-20 17:01] LABS: Glucose,Whole Blood 317 mg/dL (75-99)
[2017-02-20 17:14] LABS: % Iron Saturation 11.4 % (20-50)
[2017-02-20 20:42] LABS: Glucose,Whole Blood 219 mg/dL (75-99)
[2017-02-20] MEDS: SODIUM CHLORIDE 0.9% 1,000 ML IV SCH (21:00)
--- NOTE | 2017-02-20 21:14 | OP ---
DATE OF SERVICE: 02/18/2017 SURGEON: MAYRA BAUMANN DO RECORDER OF DEEDS: FAITH Gruber PREOPERATIVE DIAGNOSIS: Dislocation of the left shoulder. POSTOPERATIVE DIAGNOSIS: Dislocation of the left shoulder. OPERATION: Closed reduction dislocation of the left shoulder. ANESTHESIA: ESTIMATED BLOOD LOSS: SPECIMENS REMOVED: COMPLICATIONS: OPERATIVE FINDINGS: DESCRIPTION OF PROCEDURE: The patient was taken to the operative suite and placed in supine position. General manipulation of the left shoulder and reduction carried out. X-rays obtained documented reduction. He was placed in a shoulder immobilizer and transferred to the recovery room in satisfactory postop condition. GROSS PATHOLOGY: Anterior dislocation of the left shoulder with small fractured coracoid process. MTDD
[2017-02-20] MEDS: INSULIN GLARGINE 100 UNIT/ML 10 ML VIAL SQ SCH (21:43)
[2017-02-20] MEDS: MELATONIN 5 MG TABLET PO SCH (21:43)
[2017-02-20] MEDS: TAMSULOSIN 0.4 MG CAP.ER.24H PO SCH (21:43)
[2017-02-21] MEDS: LEVOTHYROXINE 25 MCG TAB PO SCH (06:28)
[2017-02-21 07:45] LABS: Glucose,Whole Blood 175 mg/dL (75-99)
[2017-02-21] MEDS: ASPIRIN 81 MG CHEW PO SCH (08:01)
[2017-02-21] MEDS: SPIRONOLACTONE-HCTZ 25-25MG 1 EACH TAB PO SCH (08:01)
[2017-02-21] MEDS: CHOLECALCIFEROL 1,000 UNIT TAB PO SCH (08:02)
[2017-02-21] MEDS: DOCUSATE 100 MG CAP PO SCH ×2 (08:02→22:12)
[2017-02-21] MEDS: LOSARTAN 50 MG TAB PO SCH (08:02)
[2017-02-21] MEDS: INSULIN LISPRO (humaLOG) 300 UNIT/3 ML VIAL SQ SCH ×4 (08:02→22:12)
[2017-02-21] MEDS: FAMOTIDINE 20 MG TAB PO SCH (08:02)
[2017-02-21] MEDS: FERROUS SULFATE 325 MG TAB PO SCH (08:02)
[2017-02-21] MEDS: FUROSEMIDE 20 MG TAB PO SCH (08:05)
--- NOTE | 2017-02-21 09:23 | P.DS ---
Providers Date of admission: 02/18/17 15:50 Expected date of discharge: 02/21/17 Attending physician: Hal Jose Consults: 02/17/17 11:29 Consult Physician Routine Consulting Provider: Roma Butler Consult Reason/Comments: shoulder dislocation Do you want consulting provider notified?: Yes Primary care physician: Roma Butler - Discharge Diagnosis(es) (1) Fall Current Visit: Yes Status: Acute (2) Dislocation of left shoulder joint Current Visit: Yes Status: Acute Hospital Course: The patient is a 81-year-old male who presented to the emergency department with a dislocated left shoulder following a fall at home. Multiple attempts were made to reduce the left shoulder were unsuccessful in the emergency department. Patient underwent a closed reduction of the left shoulder in the operating room by Dr. Jose on 02/18/2017. It was determined that the patient wasn't safe to return home and would need skilled rehab placement. The patient has been seen and evaluated by occupational and physical therapy. Today, the patient denies fever, nausea, vomiting, abdominal pain, shortness of breath, and chest pain. He states that his pain is controlled at this time. He is alert and oriented 3. Exam of the left upper extremity reveals bruising to the upper arm and shoulder. Sling is in place. Patient is able to wiggle his fingers freely. He has good hand and wrist motion. Range of motion of the shoulders not tested due to recent dislocation. There is pain upon palpation to the anterior shoulder. Sensation and circulatory status is intact. The patient is orthopedically stable for discharge to skilled rehab today. See medication reconciliation for accurate list of discharge medications. Pertinent Studies: Laboratory Tests 02/20/17 08:25 WBC 4.9 RBC 2.54 L Hgb 8.4 L Hct 26.0 L MCV 102.2 H Patient Condition at Discharge: Stable Plan - Discharge Summary New Discharge Prescriptions: HYDROcodone/APAP 5-325MG [[place] 5] 1 - 2 each PO Q4-6H PRN #60 tab PRN Reason: Pain Discharge Medication List Insulin Glargine,Hum.rec.anlog [Lantus Solostar] 12 units SQ HS 08/24/14 [ History] Levothyroxine Sodium [Synthroid] 25 mcg PO DAILY 08/24/14 [History] Losartan Potassium 50 mg PO DAILY 08/24/14 [History] Temazepam 15 mg PO HS PRN 08/24/14 [History] rOPINIRole HCL [Ropinirole HCl] 2 mg PO TID 08/24/14 [History] Thiamine [Vitamin B-1] 100 mg PO DAILY@1200 #30 tablet 08/29/14 [Rx] Albuterol Inhaler [Ventolin Hfa Inhaler] 2 puff INHALATION RT-Q4H PRN 02/17/17 [ History] Aspirin EC [Ecotrin Low Dose] 81 mg PO DAILY 02/17/17 [History] Cholecalciferol [Vitamin D3] 1,000 unit PO DAILY 02/17/17 [History] Ferrous Sulfate [Feosol] 325 mg PO DAILY 02/17/17 [History] Fesoterodine Fumarate [Toviaz] 4 mg PO DAILY 02/17/17 [History] Folic Acid 1 mg PO DAILY 02/17/17 [History] Furosemide [Lasix] 20 mg PO DAILY 02/17/17 [History] Ibuprofen [Motrin] 600 mg PO TID PRN 02/17/17 [History] Insulin Aspart [NovoLOG] See Protocol SQ ACHS 02/17/17 [History] Meclizine [Antivert] 25 mg PO Q8H PRN 02/17/17 [History] Melatonin 20 mg PO HS 02/17/17 [History] Multivitamins, Thera [Multivitamin (formulary)] 1 tab PO DAILY@1200 02/17/17 [ History] Spironolactone-Hctz 25-25Mg [Aldactazide 25-25Mg] 1 tab PO DAILY 02/17/17 [ History] Tadalafil [Cialis] 20 mg PO ONCE PRN 02/17/17 [History] Tamsulosin HCl [Flomax] 0.8 mg PO HS 02/17/17 [History] Trospium Chloride [Sanctura XR] 60 mg PO DAILY 02/17/17 [History] HYDROcodone/APAP 5-325MG [[place] 5] 1 - 2 each PO Q4-6H PRN #60 tab 02/21/17 [Rx] Follow up Appointment(s)/Referral(s): Roma Butler MD [Primary Care Provider] - 1-2 days Hal Jose DO [Doctor of Osteopathic Medicine] - 4 Weeks Patient Instructions/Handouts: Shoulder Dislocation (ED) Activity/Diet/Wound Care/Special Instructions: Keep sling in place except for bathing No active or passive ROM to the left shoulder at this time. Keep left hand elevated to prevent edema Follow up with Dr. Jose in 4 weeks. Call [facility] with any questions or concerns, Discharge Disposition: TRANSFER TO SNF/ECF
[2017-02-21 09:24] LABS: Basophils % (A) 0 %; CH 33.8; CHCM 33.7; Eosinophils % (A) 1 %; HCT 25.1 % (39.0-53.0); HDW 2.34; HGB 8.5 gm/dL (13.0-17.5); Luc % (Auto) 2; Lymphocytes # (A) 0.5 k/uL (1.0-4.8); Lymphocytes % (A) 8 %; MCH 34.3 pg (25.0-35.0); MCHC 34.1 g/dL (31.0-37.0); MCV 100.7 fL (80.0-100.0); Mean Platelet Volume 6.9; Monocytes # (A) 0.5 k/uL (0-1.0); Monocytes % (A) 8 %; Neutrophils % (A) 81 %; RBC 2.49 m/uL (4.30-5.90); RDW 12.6 % (11.5-15.5); WBC 6.1 k/uL (3.8-10.6); WBC (Perox) 5.68
[2017-02-21 09:49] LABS: ALT 38 U/L (21-72); AST 59 U/L (17-59); Alkaline Phosphatase 52 U/L (38-126); Anion Gap 8 mmol/L; Blood Urea Nitrogen 17 mg/dL (9-20); Calcium 8.4 mg/dL (8.4-10.2); Carbon Dioxide 26 mmol/L (22-30); Chloride 98 mmol/L (98-107); Glucose 195 mg/dL (74-99); Non-African American GFR(MDRD) >60 (>60 ml/min/1.73 sqM); Potassium 3.8 mmol/L (3.5-5.1); Sodium 132 mmol/L (137-145); Total Bilirubin 1.7 mg/dL (0.2-1.3); Total Protein 5.1 g/dL (6.3-8.2)
[2017-02-21 11:32] LABS: Glucose,Whole Blood 279 mg/dL (75-99)
[2017-02-21] MEDS: THIAMINE 100 MG TAB PO SCH (12:15)
[2017-02-21] MEDS: FOLIC ACID 1 MG TAB PO SCH (12:15)
[2017-02-21] MEDS: MULTIVITAMINS, THERA 1 EACH TAB PO SCH (12:15)
[2017-02-21] MEDS: HYDROcodone/APAP 5-325MG 1 EACH TAB PO PRN ×2 (15:25→22:12)
[2017-02-21 17:07] LABS: Glucose,Whole Blood 207 mg/dL (75-99)
[2017-02-21] MEDS ORDERED: LACTULOSE 20 GM/30 ML CUP PO ONE (18:10)
[2017-02-21] MEDS: LORATADINE 10 MG TAB PO SCH (19:12)
--- NOTE | 2017-02-21 19:52 | P.PN ---
Subjective Patient is doing better he is is sitting up in bedside chair. Pain is controlled. Arm in sling. Patient had urinary retention last night he was straight cathed for 400 mL's. He is also complaining of constipation. It's been was 5 days since his last bowel movement. He denies any abdominal pain. He is passing gas. He denies any chest pain or shortness of breath. Denies any nausea or vomiting. Patient will possibly be discharged later on today or tomorrow to [facility] when bed is available Objective - Vital Signs Vital signs: Vital Signs Temp 97.5 F L 02/21/17 16:46 Pulse 85 02/21/17 16:46 Resp 16 02/21/17 16:46 BP 111/46 02/21/17 16:46 Pulse Ox 98 02/21/17 16:46 Intake & Output 02/21/17 02/21/17 02/22/17 06:59 18:59 06:59 Intake Total 505 Output Total 650 1400 Balance -145 -1400 Intake: IV 150 Lactated Ringers 1,000 ml 150 @ 100 mls/hr IV .Q10H MITCHELL Rx#:[id number] Intake, IV Titration 180 Amount Sodium Chloride 0.9% 1, 180 000 ml @ 20 mls/hr IV . Q24H MITCHELL Rx#:[id number] Oral 175 Output: Urine 650 1400 Straight 650 1400 Other: Voiding Method Indwelling Catheter Indwelling Catheter - Exam In general patient is alert and oriented 3 in no apparent distress HEENT head normocephalic and atraumatic Neck is supple no JVD no goiter no lymphadenopathy Chest exam reveals a few scattered rhonchi no wheezing Cardiac exam reveals regular heart sounds S1 and S2 with mild tachycardia no gallops no murmurs Abdomen is soft nontender no organomegaly Extremity exam reveals no edema no cyanosis or clubbing - Labs CBC & Chem 7: 02/21/17 08:41 02/21/17 08:41 Labs: Abnormal Lab Results - Last 24 Hours (Table) 02/20/17 02/21/17 02/21/17 Range/Units 20:41 07:38 08:41 RBC 2.49 L (4.30-5.90) m/uL Hgb 8.5 L (13.0-17.5) gm/dL Hct 25.1 L (39.0-53.0) % MCV 100.7 H (80.0-100.0) fL Lymphocytes # 0.5 L (1.0-4.8) k/uL Sodium (137-145) mmol/L Glucose (74-99) mg/dL POC Glucose (mg/dL) 219 H 175 H (75-99) mg/dL Total Bilirubin (0.2-1.3) mg/dL Total Protein (6.3-8.2) g/dL Albumin (3.5-5.0) g/dL 02/21/17 02/21/17 02/21/17 Range/Units 08:41 11:29 17:02 RBC (4.30-5.90) m/uL Hgb (13.0-17.5) gm/dL Hct (39.0-53.0) % MCV (80.0-100.0) fL Lymphocytes # (1.0-4.8) k/uL Sodium 132 L (137-145) mmol/L Glucose 195 H (74-99) mg/dL POC Glucose (mg/dL) 279 H 207 H (75-99) mg/dL Total Bilirubin 1.7 H (0.2-1.3) mg/dL Total Protein 5.1 L (6.3-8.2) g/dL Albumin 2.7 L (3.5-5.0) g/dL Microbiology - Last 24 Hours (Table) 02/20/17 13:00 Urine Culture - Final Urine,Catheterized Assessment and Plan Plan: 1. Anterior dislocation of the left shoulder with minimal displaced fracture of the anterior tip of the coracoid process noted on computed tomography scan of the left shoulder. Patient failed reduction of the left shoulder in the emergency room. Patient is status post closed reduction of left shoulder. Postop day #2 2. Insulin-dependent diabetes mellitus: Resume Lantus. We'll add sliding scale coverage. Hemoglobin A1c 6.8 3. Essential hypertension resume losartan and Aldactazide 4. Overactive bladder resume home medications 5. History of mild asthma: No evidence of exacerbation continue with albuterol inhaler as needed 6. Restless leg syndrome resume his Requip 7. Possible alcohol abuse: Patient reports only drinking 2 beers a day. Home medications include Folic acid, thiamine and multivitamin. Resume these medications and also place patient on the CIWA protocol. Patient not requiring Ativan 8. Hypothyroidism resume Synthroid 9. Iron deficiency anemia: Continue iron supplement. Continue monitoring hemoglobin. Hemoglobin 8.4 today 10. Urinary retention with known prostate disorder. Continue with Flomax.
[2017-02-21 20:38] LABS: Glucose,Whole Blood 231 mg/dL (75-99)
[2017-02-21] MEDS: TAMSULOSIN 0.4 MG CAP.ER.24H PO SCH (22:12)
[2017-02-21] MEDS: INSULIN GLARGINE 100 UNIT/ML 10 ML VIAL SQ SCH (22:13)
[2017-02-21 22:20] VITALS: RESP 18
[2017-02-21] MEDS: SODIUM CHLORIDE 0.9% 1,000 ML IV SCH (22:30)
[2017-02-22] MEDS: MELATONIN 5 MG TABLET PO SCH (00:26)
[2017-02-22] MEDS: LEVOTHYROXINE 25 MCG TAB PO SCH (06:16)
[2017-02-22 06:52] LABS: Glucose,Whole Blood 169 mg/dL (75-99)
[2017-02-22 07:35] VITALS: BP 131/62; PULSE 81; TEMP 98.2
[2017-02-22] MEDS: HYDROmorphone 1 MG/ML 1 ML SYRINGE IVP PRN (07:43)
[2017-02-22] MEDS: FOLIC ACID 1 MG TAB PO SCH (07:58)
[2017-02-22] MEDS: DOCUSATE 100 MG CAP PO SCH (07:58)
[2017-02-22] MEDS: MULTIVITAMINS, THERA 1 EACH TAB PO SCH (07:58)
[2017-02-22] MEDS: SPIRONOLACTONE-HCTZ 25-25MG 1 EACH TAB PO SCH (07:59)
[2017-02-22] MEDS: LORATADINE 10 MG TAB PO SCH (07:59)
[2017-02-22] MEDS: FERROUS SULFATE 325 MG TAB PO SCH (07:59)
[2017-02-22] MEDS: CHOLECALCIFEROL 1,000 UNIT TAB PO SCH (07:59)
[2017-02-22] MEDS: THIAMINE 100 MG TAB PO SCH (07:59)
[2017-02-22] MEDS: FAMOTIDINE 20 MG TAB PO SCH (07:59)
[2017-02-22] MEDS: LOSARTAN 50 MG TAB PO SCH (07:59)
[2017-02-22] MEDS: ASPIRIN 81 MG CHEW PO SCH (07:59)
[2017-02-22] MEDS: FUROSEMIDE 20 MG TAB PO SCH (07:59)
[2017-02-22] MEDS: INSULIN LISPRO (humaLOG) 300 UNIT/3 ML VIAL SQ SCH (08:00)
--- NOTE | 2017-02-22 08:54 | P.PN ---
Subjective Principal diagnosis: Status post closed reduction left shoulder This is a 81 year-old male post closed reduction left shoulder. The patient was evaluated at the bedside today. The patient denies nausea, vomiting, abdominal pain, shortness of breath, and chest pain this morning. He states his pain is controlled at this time. We are awaiting rehab placement. Objective - Vital Signs Vital signs: Vital Signs Temp 98.2 F 02/22/17 07:00 Pulse 81 02/22/17 07:00 Resp 18 02/22/17 07:00 BP 131/62 02/22/17 07:00 Pulse Ox 98 02/21/17 22:19 Intake & Output 02/21/17 02/22/17 02/22/17 18:59 06:59 18:59 Intake Total 180 Output Total 1400 850 Balance -1400 -670 Intake: IV 180 Sodium Chloride 0.9% 1, 180 000 ml @ 20 mls/hr IV . Q24H MITCHELL Rx#:[id number] Output: Urine 1400 850 Straight 1400 Other: Voiding Method Indwelling Catheter Indwelling Catheter - Exam The patient is in no acute distress. He is alert and oriented 3. Exam of the left upper extremity reveals bruising to the upper arm and shoulder. Sling is in place. The patient is able to wiggle his fingers freely. Patient has good hand and wrist motion. Range of motion is not tested due to recent dislocation. There is pain upon palpation to the anterior shoulder. Sensation and circulatory status is intact. - Labs CBC & Chem 7: 02/21/17 08:41 02/21/17 08:41 Labs: Abnormal Lab Results - Last 24 Hours (Table) 02/21/17 02/21/17 02/21/17 Range/Units 08:41 08:41 11:29 RBC 2.49 L (4.30-5.90) m/uL Hgb 8.5 L (13.0-17.5) gm/dL Hct 25.1 L (39.0-53.0) % MCV 100.7 H (80.0-100.0) fL Lymphocytes # 0.5 L (1.0-4.8) k/uL Sodium 132 L (137-145) mmol/L Glucose 195 H (74-99) mg/dL POC Glucose (mg/dL) 279 H (75-99) mg/dL Total Bilirubin 1.7 H (0.2-1.3) mg/dL Total Protein 5.1 L (6.3-8.2) g/dL Albumin 2.7 L (3.5-5.0) g/dL 02/21/17 02/21/17 02/22/17 Range/Units 17:02 20:10 06:50 RBC (4.30-5.90) m/uL Hgb (13.0-17.5) gm/dL Hct (39.0-53.0) % MCV (80.0-100.0) fL Lymphocytes # (1.0-4.8) k/uL Sodium (137-145) mmol/L Glucose (74-99) mg/dL POC Glucose (mg/dL) 207 H 231 H 169 H (75-99) mg/dL Total Bilirubin (0.2-1.3) mg/dL Total Protein (6.3-8.2) g/dL Albumin (3.5-5.0) g/dL Microbiology - Last 24 Hours (Table) 02/20/17 13:00 Urine Culture - Final Urine,Catheterized Assessment and Plan (1) Fall Status: Acute (2) Dislocation of left shoulder joint Status: Acute Plan: The clinical findings were discussed with the patient. The patient will be transferred to skilled rehab upon bed availability and insurance verification. The patient is orthopedically stable for discharge today. Continue sling and nonweightbearing to the left upper extremity. We will continue to follow the patient closely.
[2017-02-22] MEDS: HYDROcodone/APAP 5-325MG 1 EACH TAB PO PRN (11:09)
--- NOTE | 2017-02-22 12:28 | P.CNOR ---
History of Present Illness - HPI Consult date: 02/17/17 Requesting physician: Hal Jose Consult reason: other (Shoulder dislocation on left) History of present illness: [facility] [address] [place] [address] Orthopedics-Consult Note : [id number] Draft Patient: Gilbert Loredo MR#: [id number] Age/Sex: 89 / M Acct:[id number] : 05/01/1927 ADM Date: Loc: LABPRL OP Reg Date: 02/07/172132 Attending Dr: Yuli Wu MD cc: ~ History of Present Illness - HPI Consult date: 02/17/17 Requesting physician: Hal Jose Consult reason: other (shoulder dislocation) History of present illness: Patient is 89 year old male seen in ER this morning regarding left shoulder dislocation. Orthopedics was requested after failed attempts of left shoulder reduction per ER physician. Xrays showed a left anterior shoulder dislocation but is unknown for certain whether it is acute vs. chronic. Daughters with him this morning state he lives alone. He has complained of left shoulder pain prior to this morning's incident where he apparently fell out of bed. He has pain at the left shoulder and is in obvious discomfort. He had received ketamine and morphine prior to my arrival and appeared the effect of those medications had decreased. He has no other complaints that I can ascertain. Physical Examination Inspection of left shoulder and upper extremity shows multiple areas of echymosis and bruising of the skin that appear chronic in nature. There is obvious deformity of the shoulder. He has severe pain with mild palpation of any area of the shoulder and arm. Sensation to touch intact throughout. Vascular status intact with 2 + radial pulse. ROM of extremity not tested. Results Xrays of left shoulder shows what appears to be an anterior dislocation of the glenohumeral joint. No apparent fracture. - Labs Labs: H & H 02/07/17 Range/Units 12:00 Hgb 14.7 (13.0-17.5) gm/dL Hct 46.4 (39.0-53.0) % Result Diagrams: 02/07/17 12:00 02/07/17 12:00 - Diagnostic results Shoulder x-ray: report reviewed, image reviewed Assessment and Plan (1) Anterior shoulder dislocation Narrative/Plan: After informed consent and confirming the patient was stable with vital signs, 5mg of valium IV was administered and then later 0.5 mg of Dilaudid. 5 cc of 1% lidocaine was injected into the area of the glenohumeral joint utilizing sterile technique. Then utilizing tied off sheets, traction-counter traction and an dental assistant teacher, I attempted to manually reduce the dislocation under slow, controlled, steady traction. The shoulder was not able to be reduced in a reasonable amount of time and effort thus decided to terminate attempts. The patient tolerated the procedure without complication. He will be taken to the OR later for further reduction per Dr. Jose. Status: Acute Time with Patient: Greater than 30 Dictated By: Jose Stevens PA-C Past Medical History Past Medical History: Asthma, Diabetes Mellitus, Eye Disorder, Hyperlipidemia, Hypertension, Prostate Disorder, Thyroid Disorder Additional Past Medical History / Comment(s): IDDM type II, hypothyroid, generalized arthritis, restless leg syndrome, BPH, occasional vertigo, L eye [id number]-[id number] glass eye, mac degeneration L eye-gets injections. History of Any Multi-Drug Resistant Organisms: None Reported Past Surgical History: Cholecystectomy Additional Past Surgical History / Comment(s): 2013 Open cholecystectomy, colonoscopies x 3, L eye numerous surgeries and eventual enucleation. Past Anesthesia/Blood Transfusion Reactions: No Reported Reaction Past Psychological History: No Psychological Hx Reported Additional Psychological History / Comment(s): Pt resides alone. He has a cane and walker. He drives a limited amount. He has a cleaning lady. Pt performs his own ADLs. He goes to lunch with [employer] [facility] [employer]. Smoking Status: Former smoker Past Alcohol Use History: Daily Additional Past Alcohol Use History / Comment(s): Pt started smoking as a teen and quit in 1986. He drinks 2 beers a day. Past Drug Use History: None Reported - Past Family History Father Family Medical History: No Reported History Mother Family Medical History: Cancer Additional Family Medical History / Comment(s): Mother of metastatic cancer at the age of 54yrs. old. Medications and Allergies Home Medications Medication Instructions Recorded Confirmed Type Insulin Glargine,Hum.rec.anlog 12 units SQ HS 08/24/14 02/17/17 History [Lantus Solostar] Levothyroxine Sodium [Synthroid] 25 mcg PO DAILY 08/24/14 02/17/17 History Losartan Potassium 50 mg PO DAILY 08/24/14 02/17/17 History Temazepam 15 mg PO HS PRN 08/24/14 02/17/17 History rOPINIRole HCL [Ropinirole HCl] 2 mg PO TID 08/24/14 02/17/17 History Albuterol Inhaler [Ventolin Hfa 2 puff INHALATION RT-Q4H PRN 02/17/17 02/17/17 History Inhaler] Aspirin EC [Ecotrin Low Dose] 81 mg PO DAILY 02/17/17 02/17/17 History Cholecalciferol [Vitamin D3] 1,000 unit PO DAILY 02/17/17 02/17/17 History Ferrous Sulfate [Feosol] 325 mg PO DAILY 02/17/17 02/17/17 History Fesoterodine Fumarate [Toviaz] 4 mg PO DAILY 02/17/17 02/17/17 History Folic Acid 1 mg PO DAILY 02/17/17 02/17/17 History Furosemide [Lasix] 20 mg PO DAILY 02/17/17 02/17/17 History Ibuprofen [Motrin] 600 mg PO TID PRN 02/17/17 02/17/17 History Insulin Aspart [NovoLOG] See Protocol SQ ACHS 02/17/17 02/17/17 History Meclizine [Antivert] 25 mg PO Q8H PRN 02/17/17 02/17/17 History Melatonin 20 mg PO HS 02/17/17 02/17/17 History Multivitamins, Thera [Multivitamin 1 tab PO DAILY@1200 02/17/17 02/17/17 History (formulary)] Spironolactone-Hctz 25-25Mg 1 tab PO DAILY 02/17/17 02/17/17 History [Aldactazide 25-25Mg] Tadalafil [Cialis] 20 mg PO ONCE PRN 02/17/17 02/17/17 History Tamsulosin HCl [Flomax] 0.8 mg PO HS 02/17/17 02/17/17 History Trospium Chloride [Sanctura XR] 60 mg PO DAILY 02/17/17 02/17/17 History Allergies Allergy/AdvReac Type Severity Reaction Status Date / Time SALONI Inhibitors Allergy Unknown Unknown Verified 02/18/17 05:28 enalaprilat [From Vasotec] Allergy Unknown Unknown Verified 02/18/17 05:28 Results - Labs Labs: Abnormal Lab Results - Last 24 Hours (Table) 02/21/17 02/21/17 02/22/17 Range/Units 17:02 20:10 06:50 POC Glucose (mg/dL) 207 H 231 H 169 H (75-99) mg/dL Microbiology - Last 24 Hours (Table) 02/20/17 13:00 Urine Culture - Final Urine,Catheterized H & H 02/17/17 02/18/17 02/19/17 Range/Units 15:55 07:09 07:29 Hgb 10.5 L 9.3 L 8.4 L (13.0-17.5) gm/dL Hct 32.4 L 28.2 L 26.1 L (39.0-53.0) % 02/20/17 02/21/17 Range/Units 08:25 08:41 Hgb 8.4 L 8.5 L (13.0-17.5) gm/dL Hct 26.0 L 25.1 L (39.0-53.0) % Result Diagrams: 02/21/17 08:41 02/21/17 08:41
== END 2017-02-22 11:34 | DRG 563 ==
LOC: EC 06:26 → OR 11:10 → 3OBS 13:07 → 5MS5E 14:32 → OBSVTOIN 02-18 15:50
PROVIDERS: ADMIT Orthopaedic Surgery; ATTEND Orthopaedic Surgery
PROC: 0RSK3ZZ Reposition Left Shoulder Joint, Percutaneous Approach (ICD-10-PCS; principal; 2017-02-20)
DX: S43.015A Anterior dislocation of left humerus, initial encounter (principal); E11.9 Type 2 diabetes mellitus without complications; I10 Essential (primary) hypertension; N32.81 Overactive bladder; D50.9 Iron deficiency anemia, unspecified; S42.132A Displaced fracture of coracoid process, left shoulder, initial encounter for closed fracture; E03.9 Hypothyroidism, unspecified; E78.5 Hyperlipidemia, unspecified; G25.81 Restless legs syndrome; J45.909 Unspecified asthma, uncomplicated; K59.00 Constipation, unspecified; M13.0 Polyarthritis, unspecified; N40.1 Benign prostatic hyperplasia with lower urinary tract symptoms; R33.8 Other retention of urine; H35.30 Unspecified macular degeneration; F10.10 Alcohol abuse, uncomplicated; R33.9 Retention of urine, unspecified; Z79.4 Long term (current) use of insulin; Z79.899 Other long term (current) drug therapy; Z87.891 Personal history of nicotine dependence; W06.XXXA Fall from bed, initial encounter; Y92.009 Unspecified place in unspecified non-institutional (private) residence as the place of occurrence of the external cause
CPT/HCPCS: 36415; 71010; 80053; 81003; 82728; 83036; 83540; 83550; 85025; 87086; 93005

== ENCOUNTER 2017-04-14 11:03 | Inpatient (IN) | payer MEDICARE ==
[2017-04-14] MEDS ORDERED: SODIUM CHLORIDE 0.9% 1,000 ML IV STA (11:30)
[2017-04-14 11:32] LABS: Glucose,Whole Blood 289 mg/dL (75-99)
--- NOTE | 2017-04-14 11:33 | ED ---
General Adult HPI - General Chief complaint: Syncope Stated complaint: syncope, poss seizure Time Seen by Provider: 04/14/17 11:10 Source: patient, RN notes reviewed Mode of arrival: wheelchair Limitations: no limitations - History of Present Illness Initial comments: This is an 82-year-old male who presents emergency Department complaining of having had a syncopal episode. Patient was on his way to Dr. South's office today and he was feeling very lightheaded and weak. He insisted on going to Dr. Cortes's office and when they arrived they try to get the patient a bed and he passed out according to the staff he was out for less than a minute. Patient states he just felt very weak and lightheaded but he denied any headache patient denied any focal numbness weakness patient denied any palpitations. Patient denies any chest pain shortness of breath or difficulty breathing. Patient denies abdominal pain patient denies nausea vomiting diarrhea. Patient currently just feels weak and has no other symptoms at this time. - Related Data Home Medications Medication Instructions Recorded Confirmed Insulin Glargine,Hum.rec.anlog 16 units SQ HS 08/24/14 04/14/17 [Lantus Solostar] Levothyroxine Sodium [Synthroid] 25 mcg PO DAILY 08/24/14 04/14/17 Losartan Potassium 50 mg PO DAILY 08/24/14 04/14/17 rOPINIRole HCL [Ropinirole HCl] 2 mg PO TID 08/24/14 04/14/17 Albuterol Inhaler [Ventolin Hfa 2 puff INHALATION RT-Q4H PRN 02/17/17 04/14/17 Inhaler] Aspirin EC [Ecotrin Low Dose] 81 mg PO DAILY 02/17/17 04/14/17 Cholecalciferol [Vitamin D3] 1,000 unit PO DAILY 02/17/17 04/14/17 Fesoterodine Fumarate [Toviaz] 4 mg PO DAILY 02/17/17 04/14/17 Folic Acid 1 mg PO DAILY 02/17/17 04/14/17 Furosemide [Lasix] 20 mg PO DAILY 02/17/17 04/14/17 Meclizine [Antivert] 25 mg PO Q8H PRN 02/17/17 04/14/17 Melatonin 20 mg PO HS 02/17/17 04/14/17 Multivitamins, Thera [Multivitamin 1 tab PO DAILY 02/17/17 04/14/17 (formulary)] Spironolactone-Hctz 25-25Mg 1 tab PO DAILY 02/17/17 04/14/17 [Aldactazide 25-25Mg] Tamsulosin HCl [Flomax] 0.8 mg PO HS 02/17/17 04/14/17 Acetaminophen Tab [Tylenol Tab] 1,000 mg PO Q6HR PRN 04/14/17 04/14/17 Acetaminophen Tab [Tylenol Tab] 500 mg PO Q6H PRN MDD 6 TABS 04/14/17 04/14/17 Bisacodyl [Dulcolax] 10 mg RECTAL DAILY PRN 04/14/17 04/14/17 HYDROcodone/APAP 5-325MG [[employer] 5] 1 tab PO Q6H PRN 04/14/17 04/14/17 INSULIN LISPRO (humaLOG) [HumaLOG] See Protocol SQ ACHS 04/14/17 04/14/17 Ibuprofen [Motrin] 200 mg PO DAILY PRN 04/14/17 04/14/17 Ibuprofen [Motrin] 400 mg PO TID 04/14/17 04/14/17 Magnesium Hydroxide [Milk of 2,400 mg PO DAILY PRN 04/14/17 04/14/17 Magnesia] Menthol [Biofreeze] 1 applic TOPICAL Q12H 04/14/17 04/14/17 Na Phos,M-B/Na Phos,Di-Ba [Fleet 133 ml RECTAL DAILY PRN 04/14/17 04/14/17 Adult] Sennosides-Docusate Sodium 2 tab PO HS 04/14/17 04/14/17 [Senokot-S] Thiamine [Vitamin B-1] 100 mg PO DAILY 04/14/17 04/14/17 Vits A and D/White Pet/Lanolin [A 1 applic TOPICAL BID 04/14/17 04/14/17 and D Ointment] Allergies Allergy/AdvReac Type Severity Reaction Status Date / Time SALONI Inhibitors Allergy Unknown Unknown Verified 04/14/17 11:11 enalaprilat [From Vasotec] Allergy Unknown Unknown Verified 04/14/17 11:11 tramadol AdvReac Hallucinati Verified 04/14/17 11:41 ons Review of Systems ROS Statement: Those systems with pertinent positive or pertinent negative responses have been documented in the HPI. ROS Other: All systems not noted in ROS Statement are negative. Past Medical History Past Medical History: Asthma, Diabetes Mellitus, Eye Disorder, Hyperlipidemia, Hypertension, Prostate Disorder, Thyroid Disorder Additional Past Medical History / Comment(s): IDDM type II, hypothyroid, generalized arthritis, restless leg syndrome, BPH, occasional vertigo, L eye xlgkje-zcqfitfswgn-wvujz glass eye, mac degeneration L eye-gets injections. History of Any Multi-Drug Resistant Organisms: None Reported Past Surgical History: Cholecystectomy Additional Past Surgical History / Comment(s): 2013 Open cholecystectomy, colonoscopies x 3, L eye numerous surgeries and eventual enucleation. Past Anesthesia/Blood Transfusion Reactions: No Reported Reaction Past Psychological History: No Psychological Hx Reported Smoking Status: Former smoker Past Alcohol Use History: Daily Past Drug Use History: None Reported - Past Family History Father Family Medical History: No Reported History Mother Family Medical History: Cancer Additional Family Medical History / Comment(s): Mother of metastatic cancer at the age of 54yrs. old. General Exam - General Exam Comments Initial Comments: GENERAL: Patient is well-developed and well-nourished. Patient is nontoxic and well- hydrated and is in mild distress. ENT: Neck is soft and supple. No significant lymphadenopathy is noted. Oropharynx is clear. Moist mucous membranes. Neck has full range of motion without eliciting any pain. EYES: The sclera were anicteric and conjunctiva were pink and moist. Extraocular movements were intact and pupils were equal round and reactive to light. Eyelids were unremarkable. PULMONARY: Unlabored respirations. Good breath sounds bilaterally. No audible rales rhonchi or wheezing was noted. CARDIOVASCULAR: There is a regular rate and rhythm without any murmurs gallops or rubs. ABDOMEN: Soft and nontender with normal bowel sounds. No palpable organomegaly was noted. There is no palpable pulsatile mass. SKIN: Skin is clear with no lesions or rashes and otherwise unremarkable. NEUROLOGIC: Patient is alert and oriented x3. Cranial nerves II through XII are grossly intact. Motor and sensory are also intact. Normal speech, volume and content. Symmetrical smile. MUSCULOSKELETAL: Normal extremities with adequate strength and full range of motion. LYMPHATICS: No significant lymphadenopathy is noted PSYCHIATRIC: Normal psychiatric evaluation. Normal interpersonal interactions appears functionally intact in deals appropriately with others. No signs of depression. No signs of anxiety. Limitations: no limitations Course Vital Signs 04/14/17 04/14/17 04/14/17 11:09 12:33 13:18 Temperature 97.5 F L Pulse Rate 99 76 78 Pulse Rate [ Right Standing] Pulse Rate [ Right Supine] Respiratory 18 18 18 Rate Blood Pressure 71/40 96/51 105/62 Blood Pressure [Right Arm Sitting] Blood Pressure [Right Arm Supine] O2 Sat by Pulse 98 96 97 Oximetry 04/14/17 14:06 Temperature Pulse Rate Pulse Rate [ 81 Right Standing] Pulse Rate [ 75 Right Supine] Respiratory 18 Rate Blood Pressure Blood Pressure 115/66 [Right Arm Sitting] Blood Pressure 118/70 [Right Arm Supine] O2 Sat by Pulse 100 Oximetry Medical Decision Making - Medical Decision Making EKG shows normal sinus rhythm at 90 bpm VT interval is 192 QRS is 92 QT interval 338 QTC is 413. Patient's EKG shows no ST segment elevation or depression or T-wave abdomen is noted. Patient does not appear orthostatic in the emergency department however he was unable to stand because of weakness. - Lab Data Result diagrams: 04/14/17 11:26 04/14/17 11:26 Lab Results 04/14/17 04/14/17 04/14/17 Range/Units 11:18 11:26 11:26 WBC 6.2 (3.8-10.6) k/uL RBC 3.63 L (4.30-5.90) m/uL Hgb 11.7 L (13.0-17.5) gm/dL Hct 35.5 L (39.0-53.0) % MCV 97.9 (80.0-100.0) fL MCH 32.3 (25.0-35.0) pg MCHC 33.0 (31.0-37.0) g/dL RDW 13.3 (11.5-15.5) % Plt Count 236 (150-450) k/uL Neutrophils % 75 % Lymphocytes % 12 % Monocytes % 11 % Eosinophils % 0 % Basophils % 1 % Neutrophils # 4.6 (1.3-7.7) k/uL Lymphocytes # 0.7 L (1.0-4.8) k/uL Monocytes # 0.7 (0-1.0) k/uL Eosinophils # 0.0 (0-0.7) k/uL Basophils # 0.1 (0-0.2) k/uL PT (9.0-12.0) sec INR (<1.1) APTT (22.0-30.0) sec Sample Site ABG pH (7.35-7.45) ABG pCO2 (35-45) mmHg ABG pO2 (83-108) mmHg ABG HCO3 (21-25) mmol/L ABG Total CO2 (19-24) mmol/L ABG O2 Saturation (94-97) % ABG Base Excess mmol/L FiO2 % Sodium (137-145) mmol/L Potassium (3.5-5.1) mmol/L Chloride (98-107) mmol/L Carbon Dioxide (22-30) mmol/L Anion Gap mmol/L BUN (9-20) mg/dL Creatinine (0.66-1.25) mg/dL Est GFR (MDRD) Af Amer (>60 ml/min/1.73 sqM) Est GFR (MDRD) Non-Af (>60 ml/min/1.73 sqM) Glucose (74-99) mg/dL POC Glucose (mg/dL) 289 H (75-99) mg/dL POC Glu Patient Portal Concierge ID Tammy Jo Calcium (8.4-10.2) mg/dL Magnesium (1.6-2.3) mg/dL Total Bilirubin (0.2-1.3) mg/dL AST (17-59) U/L ALT (21-72) U/L Alkaline Phosphatase (38-126) U/L Total Creatine Kinase 22 L (55-170) U/L CK-MB (CK-2) 1.0 (0.0-2.4) ng/mL CK-MB (CK-2) Rel Index 4.5 Troponin I <0.012 (0.000-0.034) ng/mL Total Protein (6.3-8.2) g/dL Albumin (3.5-5.0) g/dL Urine Color Urine Appearance (Clear) Urine pH (5.0-8.0) Ur Specific [place] (1.001-1.035) Urine Protein (Negative) Urine Glucose (UA) (Negative) Urine Ketones (Negative) Urine Blood (Negative) Urine Nitrite (Negative) Urine Bilirubin (Negative) Urine Urobilinogen (<2.0) mg/dL Ur Leukocyte Esterase (Negative) Urine RBC (0-5) /hpf Urine WBC (0-5) /hpf Hyaline Casts (0-2) /lpf Urine Mucus (None) /hpf 04/14/17 04/14/17 04/14/17 Range/Units 11:26 11:26 11:31 WBC (3.8-10.6) k/uL RBC (4.30-5.90) m/uL Hgb (13.0-17.5) gm/dL Hct (39.0-53.0) % MCV (80.0-100.0) fL MCH (25.0-35.0) pg MCHC (31.0-37.0) g/dL RDW (11.5-15.5) % Plt Count (150-450) k/uL Neutrophils % % Lymphocytes % % Monocytes % % Eosinophils % % Basophils % % Neutrophils # (1.3-7.7) k/uL Lymphocytes # (1.0-4.8) k/uL Monocytes # (0-1.0) k/uL Eosinophils # (0-0.7) k/uL Basophils # (0-0.2) k/uL PT 9.9 (9.0-12.0) sec INR 1.0 (<1.1) APTT 22.2 (22.0-30.0) sec Sample Site rrad ABG pH 7.44 (7.35-7.45) ABG pCO2 36 (35-45) mmHg ABG pO2 110 H (83-108) mmHg ABG HCO3 25 (21-25) mmol/L ABG Total CO2 26 H (19-24) mmol/L ABG O2 Saturation 99.0 H (94-97) % ABG Base Excess 0.8 mmol/L FiO2 21 % Sodium 136 L (137-145) mmol/L Potassium 5.3 H (3.5-5.1) mmol/L Chloride 97 L (98-107) mmol/L Carbon Dioxide 27 (22-30) mmol/L Anion Gap 12 mmol/L BUN 38 H (9-20) mg/dL Creatinine 1.27 H (0.66-1.25) mg/dL Est GFR (MDRD) Af Amer >60 (>60 ml/min/1.73 sqM) Est GFR (MDRD) Non-Af 54 (>60 ml/min/1.73 sqM) Glucose 279 H (74-99) mg/dL POC Glucose (mg/dL) (75-99) mg/dL POC Glu Patient Portal Concierge ID Calcium 9.6 (8.4-10.2) mg/dL Magnesium 1.9 (1.6-2.3) mg/dL Total Bilirubin 0.9 (0.2-1.3) mg/dL AST 23 (17-59) U/L ALT 26 (21-72) U/L Alkaline Phosphatase 65 (38-126) U/L Total Creatine Kinase (55-170) U/L CK-MB (CK-2) (0.0-2.4) ng/mL CK-MB (CK-2) Rel Index Troponin I (0.000-0.034) ng/mL Total Protein 6.7 (6.3-8.2) g/dL Albumin 4.0 (3.5-5.0) g/dL Urine Color Urine Appearance (Clear) Urine pH (5.0-8.0) Ur Specific [place] (1.001-1.035) Urine Protein (Negative) Urine Glucose (UA) (Negative) Urine Ketones (Negative) Urine Blood (Negative) Urine Nitrite (Negative) Urine Bilirubin (Negative) Urine Urobilinogen (<2.0) mg/dL Ur Leukocyte Esterase (Negative) Urine RBC (0-5) /hpf Urine WBC (0-5) /hpf Hyaline Casts (0-2) /lpf Urine Mucus (None) /hpf 04/14/17 Range/Units 11:47 WBC (3.8-10.6) k/uL RBC (4.30-5.90) m/uL Hgb (13.0-17.5) gm/dL Hct (39.0-53.0) % MCV (80.0-100.0) fL MCH (25.0-35.0) pg MCHC (31.0-37.0) g/dL RDW (11.5-15.5) % Plt Count (150-450) k/uL Neutrophils % % Lymphocytes % % Monocytes % % Eosinophils % % Basophils % % Neutrophils # (1.3-7.7) k/uL Lymphocytes # (1.0-4.8) k/uL Monocytes # (0-1.0) k/uL Eosinophils # (0-0.7) k/uL Basophils # (0-0.2) k/uL PT (9.0-12.0) sec INR (<1.1) APTT (22.0-30.0) sec Sample Site ABG pH (7.35-7.45) ABG pCO2 (35-45) mmHg ABG pO2 (83-108) mmHg ABG HCO3 (21-25) mmol/L ABG Total CO2 (19-24) mmol/L ABG O2 Saturation (94-97) % ABG Base Excess mmol/L FiO2 % Sodium (137-145) mmol/L Potassium (3.5-5.1) mmol/L Chloride (98-107) mmol/L Carbon Dioxide (22-30) mmol/L Anion Gap mmol/L BUN (9-20) mg/dL Creatinine (0.66-1.25) mg/dL Est GFR (MDRD) Af Amer (>60 ml/min/1.73 sqM) Est GFR (MDRD) Non-Af (>60 ml/min/1.73 sqM) Glucose (74-99) mg/dL POC Glucose (mg/dL) (75-99) mg/dL POC Glu Patient Portal Concierge ID Calcium (8.4-10.2) mg/dL Magnesium (1.6-2.3) mg/dL Total Bilirubin (0.2-1.3) mg/dL AST (17-59) U/L ALT (21-72) U/L Alkaline Phosphatase (38-126) U/L Total Creatine Kinase (55-170) U/L CK-MB (CK-2) (0.0-2.4) ng/mL CK-MB (CK-2) Rel Index Troponin I (0.000-0.034) ng/mL Total Protein (6.3-8.2) g/dL Albumin (3.5-5.0) g/dL Urine Color Yellow Urine Appearance Clear (Clear) Urine pH 5.5 (5.0-8.0) Ur Specific [place] 1.010 (1.001-1.035) Urine Protein Negative (Negative) Urine Glucose (UA) Negative (Negative) Urine Ketones Negative (Negative) Urine Blood Negative (Negative) Urine Nitrite Negative (Negative) Urine Bilirubin Negative (Negative) Urine Urobilinogen <2.0 (<2.0) mg/dL Ur Leukocyte Esterase Moderate H (Negative) Urine RBC <1 (0-5) /hpf Urine WBC 10 H (0-5) /hpf Hyaline Casts 18 H (0-2) /lpf Urine Mucus Rare H (None) /hpf Disposition Clinical Impression: Syncope and collapse, Weakness Disposition: ADMITTED IP TO THIS HOSP Referrals: Roma Butler MD [Primary Care Provider] - 1-2 days Time of Disposition: 14:34
[2017-04-14 11:41] LABS: Basophils # (A) 0.1 k/uL (0-0.2); Basophils % (A) 1 %; CH 31.5; CHCM 32.2; Eosinophils % (A) 0 %; HCT 35.5 % (39.0-53.0); HDW 2.23; HGB 11.7 gm/dL (13.0-17.5); Luc % (Auto) 2; Lymphocytes # (A) 0.7 k/uL (1.0-4.8); Lymphocytes % (A) 12 %; MCH 32.3 pg (25.0-35.0); MCV 97.9 fL (80.0-100.0); Mean Platelet Volume 7.5; Monocytes # (A) 0.7 k/uL (0-1.0); Monocytes % (A) 11 %; Neutrophils # (A) 4.6 k/uL (1.3-7.7); Neutrophils % (A) 75 %; RBC 3.63 m/uL (4.30-5.90); RDW 13.3 % (11.5-15.5); WBC 6.2 k/uL (3.8-10.6); WBC (Perox) 6.14
[2017-04-14 11:51] LABS: ABG Base Excess 0.8 mmol/L; ABG HCO3 25 mmol/L (21-25); ABG PCO2 36 mmHg (35-45); ABG PH 7.44 (7.35-7.45); ABG PO2 110 mmHg (83-108); ABG TCO2 26 mmol/L (19-24)
[2017-04-14 11:52] LABS: ALT 26 U/L (21-72); AST 23 U/L (17-59); Alkaline Phosphatase 65 U/L (38-126); Anion Gap 12 mmol/L; Blood Urea Nitrogen 38 mg/dL (9-20); Calcium 9.6 mg/dL (8.4-10.2); Carbon Dioxide 27 mmol/L (22-30); Chloride 97 mmol/L (98-107); Glucose 279 mg/dL (74-99); Magnesium 1.9 mg/dL (1.6-2.3); Non-African American GFR(MDRD) 54 (>60 ml/min/1.73 sqM); Potassium 5.3 mmol/L (3.5-5.1); Sodium 136 mmol/L (137-145); Total Bilirubin 0.9 mg/dL (0.2-1.3); Total Protein 6.7 g/dL (6.3-8.2)
[2017-04-14 12:05] LABS: Partial Thromboplastin Time 22.2 sec (22.0-30.0); Prothrombin Time 9.9 sec (9.0-12.0)
[2017-04-14 12:10] LABS: Creatine Kinase 22 U/L (55-170)
[2017-04-14 12:22] LABS: Troponin I <0.012 ng/mL (0.000-0.034)
--- NOTE | 2017-04-14 12:46 | XR ---
EXAMINATION TYPE: XR chest 2V DATE OF EXAM: 04/14/2017 COMPARISON: 08/29/2014 TECHNIQUE: PA and lateral views submitted. HISTORY: Syncope and weakness FINDINGS: The lungs are clear and there is no pneumothorax, pleural effusion, or focal pneumonia. Lateral vie w limited due to overlying soft tissue artifact. There is a density anterior to the humerus of uncert ain etiology. Underlying COPD suspected within the millimeter nodule in the right midlung. Calcified lymph node or nodule along the medial aspect of the right lung. IMPRESSION: 1. Correlate for COPD. There is a right-sided pulmonary nodule. CT of the chest is recommended. Densi ty in the lateral view anterior to the humerus may be related to soft tissue overlap also could be as sessed with CT scan.
[2017-04-14 13:38] LABS: Appearance,Urine Clear (Clear); Bilirubin,Urine Negative (Negative); Glucose,Urine (UA) Negative (Negative); Ketones,Urine Negative (Negative); Leukocyte Esterase,Urine Moderate (Negative); Mucus,Urine Rare /hpf; Nitrite,Urine Negative (Negative); PH, Urine 5.5 (5.0-8.0); Particle Count 2324; Protein,Urine Negative (Negative); RBC,Urine <1 /hpf (0-5); UA Billing (MACRO vs. MICRO) MICRO; Urobilinogen,Urine <2.0 mg/dL (<2.0); WBC,Urine 10 /hpf (0-5)
[2017-04-14] MEDS ORDERED: HYDROcodone/APAP 5-325MG 1 EACH TAB PO STA (13:51)
[2017-04-14] MEDS ORDERED: SODIUM CHLORIDE 0.9% 1,000 ML IV ONE (14:36)
[2017-04-14 17:10] LABS: Glucose,Whole Blood 313 mg/dL (75-99)
[2017-04-14] MEDS: INSULIN LISPRO (humaLOG) 300 UNIT/3 ML VIAL SQ SCH ×2 (17:19→20:20)
[2017-04-14] MEDS ORDERED: MAGNESIUM HYDROXIDE 2,400 MG/10 ML CUP PO PRN (17:38)
[2017-04-14] MEDS ORDERED: IBUPROFEN 200 MG TAB PO PRN (17:38)
[2017-04-14] MEDS ORDERED: MECLIZINE 25 MG TAB PO PRN (17:38)
[2017-04-14] MEDS ORDERED: ACETAMINOPHEN TAB 500 MG TAB PO PRN (17:38)
[2017-04-14] MEDS ORDERED: ALBUTEROL NEBULIZED 2.5 MG/3 ML INHALATION PRN (17:38)
[2017-04-14] MEDS ORDERED: NON-FORMULARY DRUG (Menthol [Biofreeze] 1 APPLIC) TOPICAL SCH (17:45)
[2017-04-14 20:13] LABS: Glucose,Whole Blood 246 mg/dL (75-99)
[2017-04-14] MEDS: MELATONIN 5 MG TABLET PO SCH (20:17)
[2017-04-14] MEDS: TAMSULOSIN 0.4 MG CAP.ER.24H PO SCH (20:19)
[2017-04-14] MEDS: SENNOSIDES-DOCUSATE SODIUM 1 EACH TAB PO SCH (20:19)
[2017-04-14] MEDS: INSULIN GLARGINE 100 UNIT/ML 10 ML VIAL SQ SCH (20:20)
[2017-04-14] MEDS ORDERED: LANOLIN TOPICAL SCH (21:00)
[2017-04-14] MEDS ORDERED: VITS A AND D TOPICAL SCH (21:00)
[2017-04-14] MEDS ORDERED: WHITE PET TOPICAL SCH (21:00)
[2017-04-14] MEDS ORDERED: IBUPROFEN 200 MG TAB PO SCH (22:00)
[2017-04-15 00:55] LABS: Hemoglobin A1C 7.6 % (4.2-6.1)
[2017-04-15] MEDS: ACETAMINOPHEN TAB 500 MG TAB PO PRN (02:22)
[2017-04-15] MEDS: IBUPROFEN 400 MG TAB PO SCH ×2 (02:28→07:54)
[2017-04-15] MEDS: HYDROcodone/APAP 5-325MG 1 EACH TAB PO PRN ×3 (02:58→19:52)
[2017-04-15] MEDS: LEVOTHYROXINE 25 MCG TAB PO SCH (06:14)
[2017-04-15 06:58] LABS: Glucose,Whole Blood 132 mg/dL (75-99)
[2017-04-15] MEDS: LOSARTAN 50 MG TAB PO SCH (07:54)
[2017-04-15] MEDS: OXYBUTYNIN XL 5 MG TAB.ER.24 PO SCH (07:54)
[2017-04-15] MEDS: THIAMINE 100 MG TAB PO SCH (07:54)
[2017-04-15] MEDS: INSULIN LISPRO (humaLOG) 300 UNIT/3 ML VIAL SQ SCH ×4 (07:55→21:20)
[2017-04-15] MEDS: CHOLECALCIFEROL 1,000 UNIT TAB PO SCH (07:55)
[2017-04-15] MEDS: ASPIRIN 81 MG CHEW PO SCH (07:55)
[2017-04-15] MEDS ORDERED: BISACODYL 10 MG SUPP RECTAL PRN (09:00)
[2017-04-15] MEDS ORDERED: FUROSEMIDE 20 MG TAB PO SCH (09:00)
[2017-04-15] MEDS ORDERED: SPIRONOLACTONE-HCTZ 25-25MG 1 EACH TAB PO SCH (09:00)
[2017-04-15 11:49] LABS: Glucose,Whole Blood 233 mg/dL (75-99)
[2017-04-15] MEDS: MULTIVITAMINS, THERA 1 EACH TAB PO SCH (12:50)
[2017-04-15] MEDS: FOLIC ACID 1 MG TAB PO SCH (12:50)
[2017-04-15] MEDS ORDERED: Magnesium Replacement Protocol 1 EACH MISC MISCELLANE PRN (15:18)
[2017-04-15] MEDS ORDERED: Potassium Replacement Protocol 1 EACH MISC MISCELLANE PRN (15:18)
--- NOTE | 2017-04-15 15:25 | P.HPIM ---
History of Present Illness H&P Date: 04/15/17 Chief Complaint: syncope this is a 82-year-old gentleman with past medical history noted below who presented to the emergency room after a syncopal episode. Apparently patient was on his way to a urologist appointment when he started feeling lightheaded and weak. he subsequently passed out according to staff at [facility]. Patient does not recall the incident pain exactly. apparently he woke up spontaneously sewn after. He reported feeling very weak and lightheaded before the episode. He denies any chest pain or discomfort. He said that for the past couple of weeks his been having more dizziness in particular when he get up to walk around. He denies any vertigo. he denies any ongoing chest pain or shortness of breath. No palpitation. patient is not sure if he is keeping himself well hydrated particularly for the past few days when the weather was very hot. he was evaluated in the emergency room and blood pressure was noted to be in the 70s systolic. patient was given IV fluid hydration is currently admitted to the observation unit for further evaluation. he denies any headache or vision change. Review of Systems Review of system: 14 points review of systems were obtained and were negative except to what were mentioned in the HPI. Past Medical History Past Medical History: Asthma, Diabetes Mellitus, Eye Disorder, Hyperlipidemia, Hypertension, Prostate Disorder, Thyroid Disorder Additional Past Medical History / Comment(s): Recent UTI with ABX, fell 02/18/17 with L shoulder dislocation with surgery, IDDM type II, hypothyroid, generalized arthritis, restless leg syndrome, BPH, occasional vertigo, L eye rmtsvv-uyuokgienpr-nhnbq glass eye, mac degeneration R eye-gets injections. History of Any Multi-Drug Resistant Organisms: None Reported Past Surgical History: Cholecystectomy, Orthopedic Surgery Additional Past Surgical History / Comment(s): 02/18/17 closed reduction L shoulder, 2013 Open cholecystectomy, colonoscopies x 3, L eye numerous surgeries and eventual enucleation. Past Anesthesia/Blood Transfusion Reactions: No Reported Reaction Smoking Status: Former smoker - Past Family History Father Family Medical History: No Reported History Mother Family Medical History: Cancer Additional Family Medical History / Comment(s): Mother of metastatic cancer at the age of 54yrs. old. Medications and Allergies Home Medications Medication Instructions Recorded Confirmed Type Insulin Glargine,Hum.rec.anlog 16 units SQ HS 08/24/14 04/14/17 History [Lantus Solostar] Levothyroxine Sodium [Synthroid] 25 mcg PO DAILY 08/24/14 04/14/17 History Losartan Potassium 50 mg PO DAILY 08/24/14 04/14/17 History rOPINIRole HCL [Ropinirole HCl] 2 mg PO TID 08/24/14 04/14/17 History Albuterol Inhaler [Ventolin Hfa 2 puff INHALATION RT-Q4H PRN 02/17/17 04/14/17 History Inhaler] Aspirin EC [Ecotrin Low Dose] 81 mg PO DAILY 02/17/17 04/14/17 History Cholecalciferol [Vitamin D3] 1,000 unit PO DAILY 02/17/17 04/14/17 History Fesoterodine Fumarate [Toviaz] 4 mg PO DAILY 02/17/17 04/14/17 History Folic Acid 1 mg PO DAILY 02/17/17 04/14/17 History Furosemide [Lasix] 20 mg PO DAILY 02/17/17 04/14/17 History Meclizine [Antivert] 25 mg PO Q8H PRN 02/17/17 04/14/17 History Melatonin 20 mg PO HS 02/17/17 04/14/17 History Multivitamins, Thera [Multivitamin 1 tab PO DAILY 02/17/17 04/14/17 History (formulary)] Spironolactone-Hctz 25-25Mg 1 tab PO DAILY 02/17/17 04/14/17 History [Aldactazide 25-25Mg] Tamsulosin HCl [Flomax] 0.8 mg PO HS 02/17/17 04/14/17 History Acetaminophen Tab [Tylenol Tab] 1,000 mg PO Q6HR PRN 04/14/17 04/14/17 History Acetaminophen Tab [Tylenol Tab] 500 mg PO Q6H PRN MDD 6 TABS 04/14/17 04/14/17 History Bisacodyl [Dulcolax] 10 mg RECTAL DAILY PRN 04/14/17 04/14/17 History HYDROcodone/APAP 5-325MG [[place] 5] 1 tab PO Q6H PRN 04/14/17 04/14/17 History INSULIN LISPRO (humaLOG) [HumaLOG] See Protocol SQ ACHS 04/14/17 04/14/17 History Ibuprofen [Motrin] 200 mg PO DAILY PRN 04/14/17 04/14/17 History Ibuprofen [Motrin] 400 mg PO TID 04/14/17 04/14/17 History Magnesium Hydroxide [Milk of 2,400 mg PO DAILY PRN 04/14/17 04/14/17 History Magnesia] Menthol [Biofreeze] 1 applic TOPICAL Q12H 04/14/17 04/14/17 History Na Phos,M-B/Na Phos,Di-Ba [Fleet 133 ml RECTAL DAILY PRN 04/14/17 04/14/17 History Adult] Sennosides-Docusate Sodium 2 tab PO HS 04/14/17 04/14/17 History [Senokot-S] Thiamine [Vitamin B-1] 100 mg PO DAILY 04/14/17 04/14/17 History Vits A and D/White Pet/Lanolin [A 1 applic TOPICAL BID 04/14/17 04/14/17 History and D Ointment] Allergies Allergy/AdvReac Type Severity Reaction Status Date / Time SALONI Inhibitors Allergy Unknown Unknown Verified 04/14/17 11:11 enalaprilat [From Vasotec] Allergy Unknown Unknown Verified 04/14/17 11:11 tramadol AdvReac Hallucinati Verified 04/14/17 11:41 ons Physical Exam Vitals: Vital Signs Temp Pulse Pulse Resp BP BP BP 04/15/17 12:00 97.8 F 75 16 119/64 04/15/17 08:00 98.0 F 74 18 112/61 04/15/17 04:00 97.9 F 71 18 125/64 04/15/17 03:37 18 04/15/17 00:00 18 04/14/17 23:26 74 18 109/55 04/14/17 20:00 18 04/14/17 19:28 98.3 F 85 18 96/55 Pulse Ox 04/15/17 12:00 98 04/15/17 08:00 99 04/15/17 04:00 97 04/15/17 03:37 04/15/17 00:00 04/14/17 23:26 95 04/14/17 20:00 04/14/17 19:28 99 Intake and Output 04/15/17 04/15/17 04/15/17 06:59 14:59 22:59 Intake Total 950 Output Total 1050 850 Balance -100 -850 Intake: IV 750 Sodium Chloride 0.9% 1, 750 000 ml @ 75 mls/hr IV . [id number] Rx#:[id number] Oral 200 Output: Urine 1050 850 Other: Voiding Method Indwelling Catheter Bedside Commode Indwelling Catheter General: The patient is awake and alert, in no distress Eye: there is normal conjunctiva bilaterally. Neck: The neck is supple, there is no JVD. Cardiovascular: Normal S1-S2, no S3-S4, no murmurs. Respiratory: Lungs clear to auscultation bilaterally Gastrointestinal: Abdomen is soft, nontender Musculoskeletal: There is no pedal edema. Neurological:. Speech is normal. Skin: Skin is warm and dry Results CBC & Chem 7: 04/14/17 11:26 04/14/17 11:26 Labs: Abnormal Lab Results - Last 24 Hours (Table) 04/14/17 04/14/17 04/14/17 Range/Units 11:26 17:07 20:01 POC Glucose (mg/dL) 313 H 246 H (75-99) mg/dL Hemoglobin A1c 7.6 H (4.2-6.1) % 04/15/17 04/15/17 Range/Units 06:57 11:47 POC Glucose (mg/dL) 132 H 233 H (75-99) mg/dL Hemoglobin A1c (4.2-6.1) % Microbiology - Last 24 Hours (Table) 04/14/17 20:05 Urine Culture - Preliminary Urine,Catheterized Thrombosis Risk Factor Assmnt - Choose All That Apply Any of the Below Risk Factors Present?: Yes Each Factor Represents 1 point: Medical pt on bed rest Other Risk Factors: Yes Each Risk Factor Represents 3 Points: Age 75 years or older Other congenital or acquired thrombophilia - If yes, enter type in comment: No Thrombosis Risk Factor Assessment Total Risk Factor Score: 4 Thrombosis Risk Factor Assessment Level: Moderate Risk Assessment and Plan Plan: 1. Syncope: most likely related to dehydration and intravascular depletion. Systolic blood pressure on presentation in the 70s and 80s. Patient was given IV fluid hydration. I would recheck orthostatic blood pressure. Twelve-lead EKG showed normal sinus rhythm. We will continue telemetry monitoring. I would also obtain an echocardiogram to assess for any valvular abnormality. 2. Essential hypertension, blood pressure on the lower side on presentation secondary to intravascular depletion. I would discontinue diuretics for now. Continue IV fluid hydration. 3. Acute kidney injury 4. 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 Type 2 diabetes mellitus, maintained on insulin. A1c 7.6. We will continue to monitor blood glucose closely. 6. Hypothyroidism 7. Mild intermittent asthma with no evidence of exacerbation 8. Chronic urinary retention with chronic indwelling Ozuna catheter following with urology as an outpatient
[2017-04-15] MEDS: SODIUM CHLORIDE 0.9% 1,000 ML IV SCH (15:44)
[2017-04-15 16:56] LABS: Glucose,Whole Blood 340 mg/dL (75-99)
[2017-04-15] MEDS: SENNOSIDES-DOCUSATE SODIUM 1 EACH TAB PO SCH (19:51)
[2017-04-15] MEDS: MELATONIN 5 MG TABLET PO SCH (19:52)
[2017-04-15] MEDS: TAMSULOSIN 0.4 MG CAP.ER.24H PO SCH (19:52)
[2017-04-15 20:17] LABS: Glucose,Whole Blood 216 mg/dL (75-99)
[2017-04-15] MEDS: INSULIN GLARGINE 100 UNIT/ML 10 ML VIAL SQ SCH (21:19)
[2017-04-16] MEDS: HYDROcodone/APAP 5-325MG 1 EACH TAB PO PRN ×3 (02:45→18:48)
[2017-04-16] MEDS: SODIUM CHLORIDE 0.9% 1,000 ML IV SCH ×2 (06:43→16:35)
[2017-04-16] MEDS: LEVOTHYROXINE 25 MCG TAB PO SCH (06:43)
[2017-04-16 06:54] LABS: Glucose,Whole Blood 140 mg/dL (75-99)
[2017-04-16 07:07] LABS: Basophils % (A) 1 %; CH 31.3; CHCM 32.2; Eosinophils % (A) 0 %; HCT 30.7 % (39.0-53.0); HDW 2.24; HGB 10.3 gm/dL (13.0-17.5); Luc # (Auto) 0.09; Luc % (Auto) 2; Lymphocytes # (A) 0.9 k/uL (1.0-4.8); Lymphocytes % (A) 18 %; MCH 32.6 pg (25.0-35.0); MCHC 33.5 g/dL (31.0-37.0); MCV 97.4 fL (80.0-100.0); Mean Platelet Volume 7.1; Monocytes # (A) 0.7 k/uL (0-1.0); Monocytes % (A) 14 %; Neutrophils # (A) 3.5 k/uL (1.3-7.7); Neutrophils % (A) 66 %; RBC 3.16 m/uL (4.30-5.90); WBC 5.2 k/uL (3.8-10.6); WBC (Perox) 5.58
[2017-04-16 07:21] LABS: Anion Gap 6 mmol/L; Blood Urea Nitrogen 18 mg/dL (9-20); Calcium 8.7 mg/dL (8.4-10.2); Carbon Dioxide 25 mmol/L (22-30); Chloride 104 mmol/L (98-107); Glucose 120 mg/dL (74-99); Magnesium 1.7 mg/dL (1.6-2.3); Non-African American GFR(MDRD) >60 (>60 ml/min/1.73 sqM); Potassium 4.6 mmol/L (3.5-5.1); Sodium 135 mmol/L (137-145)
[2017-04-16] MEDS: ASPIRIN 81 MG CHEW PO SCH (09:25)
[2017-04-16] MEDS: LOSARTAN 50 MG TAB PO SCH (09:35)
[2017-04-16] MEDS: CHOLECALCIFEROL 1,000 UNIT TAB PO SCH (09:35)
[2017-04-16] MEDS: OXYBUTYNIN XL 5 MG TAB.ER.24 PO SCH (09:35)
[2017-04-16] MEDS: THIAMINE 100 MG TAB PO SCH (09:35)
[2017-04-16] MEDS: INSULIN LISPRO (humaLOG) 300 UNIT/3 ML VIAL SQ SCH ×4 (09:50→21:57)
[2017-04-16 12:38] LABS: Glucose,Whole Blood 176 mg/dL (75-99)
[2017-04-16] MEDS: FOLIC ACID 1 MG TAB PO SCH (12:51)
[2017-04-16] MEDS: MULTIVITAMINS, THERA 1 EACH TAB PO SCH (12:51)
[2017-04-16 16:59] LABS: Glucose,Whole Blood 214 mg/dL (75-99)
--- NOTE | 2017-04-16 18:19 | P.PN ---
Subjective No events overnight Objective - Vital Signs Vital signs: Vital Signs Temp 97.0 F L 04/16/17 15:00 Pulse 68 04/16/17 16:00 Resp 16 04/16/17 16:00 BP 120/68 04/16/17 15:00 Pulse Ox 100 04/16/17 15:00 Intake & Output 04/15/17 04/16/17 04/16/17 18:59 06:59 18:59 Intake Total 375 1500 Output Total 1770 1100 3500 Balance -1769 Weight 63 kg Intake: IV 375 Sodium Chloride 0.9% 1, 375 000 ml @ 75 mls/hr IV . [id number] ONE Rx#:[id number] Intake, IV Titration 500 Amount Sodium Chloride 0.9% 1, 500 000 ml @ 75 mls/hr IV . [id number] MITCHELL Rx#:[id number] Oral 1000 Output: Urine 1770 1100 3500 Other: Voiding Method Bedside Commode Bedside Commode Bedside Commode Indwelling Catheter Indwelling Catheter Indwelling Catheter - Exam General: The patient is awake and alert, in no distress Eye: there is normal conjunctiva bilaterally. Neck: The neck is supple, there is no JVD. Cardiovascular: Normal S1-S2, no S3-S4, no murmurs. Respiratory: Lungs clear to auscultation bilaterally Gastrointestinal: Abdomen is soft, nontender Musculoskeletal: There is no pedal edema. Neurological:. Speech is normal. Skin: Skin is warm and dry - Labs CBC & Chem 7: 04/16/17 06:21 04/16/17 06:21 Labs: Abnormal Lab Results - Last 24 Hours (Table) 04/15/17 04/16/17 04/16/17 Range/Units 20:15 06:21 06:21 RBC 3.16 L (4.30-5.90) m/uL Hgb 10.3 L (13.0-17.5) gm/dL Hct 30.7 L (39.0-53.0) % Lymphocytes # 0.9 L (1.0-4.8) k/uL Sodium 135 L (137-145) mmol/L Glucose 120 H (74-99) mg/dL POC Glucose (mg/dL) 216 H (75-99) mg/dL 04/16/17 04/16/17 04/16/17 Range/Units 06:53 12:24 16:57 RBC (4.30-5.90) m/uL Hgb (13.0-17.5) gm/dL Hct (39.0-53.0) % Lymphocytes # (1.0-4.8) k/uL Sodium (137-145) mmol/L Glucose (74-99) mg/dL POC Glucose (mg/dL) 140 H 176 H 214 H (75-99) mg/dL Assessment and Plan Plan: 1. Syncope: most likely related to dehydration and intravascular depletion. Systolic blood pressure on presentation in the 70s and 80s. Patient was given IV fluid hydration. Orthostatic blood pressure checked and negative. Twelve- lead EKG showed normal sinus rhythm. We will continue telemetry monitoring. I would also obtain an echocardiogram to assess for any valvular abnormality. 2. Essential hypertension, blood pressure on the lower side on presentation secondary to intravascular depletion. I would discontinue diuretics for now. May discontinue IV fluids today 3. Acute kidney injury 4. 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 Type 2 diabetes mellitus, maintained on insulin. A1c 7.6. We will continue to monitor blood glucose closely. 6. Hypothyroidism 7. Mild intermittent asthma with no evidence of exacerbation 8. Chronic urinary retention with chronic indwelling Ozuna catheter following with urology as an outpatient
[2017-04-16 21:52] LABS: Glucose,Whole Blood 283 mg/dL (75-99)
[2017-04-16] MEDS: INSULIN GLARGINE 100 UNIT/ML 10 ML VIAL SQ SCH (21:56)
[2017-04-16] MEDS: MELATONIN 5 MG TABLET PO SCH (21:57)
[2017-04-16] MEDS: TAMSULOSIN 0.4 MG CAP.ER.24H PO SCH (21:58)
[2017-04-16] MEDS: SENNOSIDES-DOCUSATE SODIUM 1 EACH TAB PO SCH (21:58)
[2017-04-17] MEDS: HYDROcodone/APAP 5-325MG 1 EACH TAB PO PRN ×3 (05:44→23:09)
[2017-04-17] MEDS: LEVOTHYROXINE 25 MCG TAB PO SCH (06:53)
[2017-04-17 07:20] LABS: Glucose,Whole Blood 114 mg/dL (75-99)
[2017-04-17] MEDS: INSULIN LISPRO (humaLOG) 300 UNIT/3 ML VIAL SQ SCH ×4 (07:55→22:50)
[2017-04-17] MEDS ORDERED: IV VANCOMYCIN PER PHARMACY 1 EACH MISC MISCELLANE PRN (08:28)
[2017-04-17] MEDS: ASPIRIN 81 MG CHEW PO SCH (09:09)
[2017-04-17] MEDS: CHOLECALCIFEROL 1,000 UNIT TAB PO SCH (09:09)
[2017-04-17] MEDS: LOSARTAN 50 MG TAB PO SCH (09:09)
[2017-04-17] MEDS: OXYBUTYNIN XL 5 MG TAB.ER.24 PO SCH (09:09)
[2017-04-17] MEDS: THIAMINE 100 MG TAB PO SCH (09:10)
[2017-04-17 09:12] LABS: Basophils % (A) 1 %; CH 32.1; CHCM 32.8; Eosinophils % (A) 1 %; HCT 32.5 % (39.0-53.0); HDW 2.24; HGB 10.7 gm/dL (13.0-17.5); Luc # (Auto) 0.12; Luc % (Auto) 2; Lymphocytes % (A) 19 %; MCH 32.4 pg (25.0-35.0); MCV 98.3 fL (80.0-100.0); Mean Platelet Volume 7.3; Monocytes # (A) 0.6 k/uL (0-1.0); Monocytes % (A) 10 %; Neutrophils # (A) 3.7 k/uL (1.3-7.7); Neutrophils % (A) 68 %; RDW 13.4 % (11.5-15.5); WBC 5.4 k/uL (3.8-10.6); WBC (Perox) 5.93
[2017-04-17 09:23] LABS: ALT 23 U/L (21-72); AST 17 U/L (17-59); Alkaline Phosphatase 53 U/L (38-126); Anion Gap 6 mmol/L; Blood Urea Nitrogen 13 mg/dL (9-20); Calcium 9.1 mg/dL (8.4-10.2); Carbon Dioxide 26 mmol/L (22-30); Chloride 102 mmol/L (98-107); Glucose 149 mg/dL (74-99); Non-African American GFR(MDRD) >60 (>60 ml/min/1.73 sqM); Potassium 4.7 mmol/L (3.5-5.1); Sodium 134 mmol/L (137-145); Total Bilirubin 0.9 mg/dL (0.2-1.3); Total Protein 5.7 g/dL (6.3-8.2)
[2017-04-17] MEDS: MENTHOL-ZINC OXIDE OINT 113 GM TUBE TOPICAL SCH ×2 (09:40→22:43)
[2017-04-17] MEDS: VANCOMYCIN 1,250 MG in SODIUM CHLORIDE 0.9% 250 ML IVPB SCH ×2 (09:40→22:39)
--- NOTE | 2017-04-17 10:11 | P.PN ---
Subjective Patient presented to the hospital after syncopal episode. Likely secondary to dehydration and intravascular volume depletion. He received IV fluids. And has shown improvement. Today he is complaining of left shoulder and arm pain. He has a known history of dislocation of that left shoulder. Arm is in sling. Patient requesting pain cream that he uses for his arm. It is nonformulary here. Patient is scheduled for echo today. Urine culture came back positive with MRSA. And he'll be started on IV vancomycin. He has a chronic indwelling Ozuna catheter. He is followed with urology. Catheter was inserted and [place] patient not sure how long ago. A fairly recent male with the last month. Patient was told by urology that he needs to keep the catheter in for another month. Patient denies any chest pain or shortness of breath. Denies any nausea or vomiting. Reports having bowel movements. Reports eating most of his food. Objective - Vital Signs Vital signs: Vital Signs Temp 97.2 F L 04/17/17 07:00 Pulse 76 04/17/17 07:00 Resp 18 04/17/17 07:00 BP 106/58 04/17/17 07:00 Pulse Ox 97 04/17/17 07:00 Intake & Output 04/16/17 04/17/17 04/17/17 18:59 06:59 18:59 Intake Total 1500 Output Total 3500 1600 Balance -2000 -1600 Weight 63 kg Intake: Intake, IV Titration 500 Amount Sodium Chloride 0.9% 1, 500 000 ml @ 75 mls/hr IV . [id number] MITCHELL Rx#:[id number] Oral 1000 Output: Urine 3500 1600 Other: Voiding Method Bedside Commode Indwelling Catheter Indwelling Catheter # Voids 1 - Exam Head normocephalic Neck supple Lungs clear to auscultation bilaterally no wheezing or crackles Heart regular rate and rhythm S1-S2, no rub or gallop Abdomen is soft nontender nondistended positive bowel sounds no hepatosplenomegaly Extremities no edema. Left arm in sling. +2 radial pulse. Neuro alert and orientated to 3 - Labs CBC & Chem 7: 04/17/17 08:46 04/17/17 08:46 Labs: Abnormal Lab Results - Last 24 Hours (Table) 04/16/17 04/16/17 04/16/17 Range/Units 12:24 16:57 21:12 RBC (4.30-5.90) m/uL Hgb (13.0-17.5) gm/dL Hct (39.0-53.0) % Sodium (137-145) mmol/L Glucose (74-99) mg/dL POC Glucose (mg/dL) 176 H 214 H 283 H (75-99) mg/dL Total Protein (6.3-8.2) g/dL Albumin (3.5-5.0) g/dL 04/17/17 04/17/17 04/17/17 Range/Units 07:16 08:46 08:46 RBC 3.30 L (4.30-5.90) m/uL Hgb 10.7 L (13.0-17.5) gm/dL Hct 32.5 L (39.0-53.0) % Sodium 134 L (137-145) mmol/L Glucose 149 H (74-99) mg/dL POC Glucose (mg/dL) 114 H (75-99) mg/dL Total Protein 5.7 L (6.3-8.2) g/dL Albumin 3.2 L (3.5-5.0) g/dL Microbiology - Last 24 Hours (Table) 04/14/17 20:05 Urine Culture - Final Urine,Catheterized Methicillin resist S. aureus Assessment and Plan Plan: 1. Syncope: most likely related to dehydration and intravascular depletion. Systolic blood pressure on presentation in the 70s and 80s. Patient was given IV fluid hydration. I would recheck orthostatic blood pressure. Twelve-lead EKG showed normal sinus rhythm. We will continue telemetry monitoring. Awaiting echo results 2. Essential hypertension, blood pressure on the lower side on presentation secondary to intravascular depletion. Patient is currently off of his diuretics which include the Lasix, Aldactone and hydrochlorothiazide. Blood pressure stable this morning at 106/58 3. Acute kidney injury likely related to dehydration and diuretics. Kidney function has improved with IV fluids. Continue to monitor 4. 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 Consult physical therapy. Ziujlui-gfrld-[id number] zinc oxide ointment to apply twice a day to arm help with pain control. Continue [place]. 5. Type 2 diabetes mellitus, maintained on insulin. A1c 7.6. We will continue to monitor blood glucose closely. 6. Hypothyroidism 7. Mild intermittent asthma with no evidence of exacerbation 8. Chronic urinary retention with chronic indwelling Ozuna catheter following with urology as an outpatient 9. Catheter associated UTI with urine culture growing MRSA. Start IV vancomycin. We'll monitor GI prophylaxis Pepcid and DVT prophylaxis subcu heparin I performed an examination of the patient and discussed their management with the physician Senior User Experience Architect. I have reviewed the Physician Senior User Experience Architect's notes and agree with the documented findings and plan of care
[2017-04-17] MEDS: FOLIC ACID 1 MG TAB PO SCH (11:29)
[2017-04-17] MEDS: FAMOTIDINE 20 MG TAB PO SCH (11:29)
[2017-04-17] MEDS: MULTIVITAMINS, THERA 1 EACH TAB PO SCH (11:29)
[2017-04-17 11:51] LABS: Glucose,Whole Blood 146 mg/dL (75-99)
--- NOTE | 2017-04-17 12:25 | CDI ---
In responding to this query, please exercise your independent professional judgment. The [facility] Coding Staff and Clinical Documentation Specialists appreciate your assistance in clarifying documentation, maintaining compliance with coding guidelines, accurately documenting patients condition and capturing severity of illness. The fact that a question is asked does not imply that any particular answer is desired or expected. Communication forms are a method of clarifying documentation and are not made part of the Legal Health Record. Thank you in advance for your clarification. Last Revision, August 2015 Lyle Bhatt [address] [place] [address] Documentation Clarification Form Date: 04/17/2017 11:55:00 AM From: Angelica Ding RN, CDS Admit Date: 04/14/2017 2:37:00 PM Patient Name: Molina Feliciano Visit Number: [id number] Gisselle Gifford PA-C/Dr. Roma Butler, 82 year old patient presents with complaints of syncopal episode. He has history of chronic urinary retention with chronic indwelling Ozuna. "Catheter associated UTI with urine culture growing MRSA per Progress note 04/17/17 History/Risk Factors: 82 year old Chronic Urinary Retention with Chronic indwelling Ozuna catheter, BPH, DM2, Clinical Indicators: UA: moderate leuk sayda, pH: 5.5, 10 WBC, Urine Culture > 100,000 MRSA Treatment: IV Vanco Definition of Present on Admission (POA): A diagnosis present at the time the order for admission to inpatient status was written. For each diagnosis, documentation must be clear to determine if the condition was present at the time of the patients inpatient admission or developed during the hospital stay. Please clarify in progress notes and discharge summary as to whether Catheter associated UTI was: Y = Yes, the condition was present at the time of the order for inpatient admission. N = No, the condition was not present at the time of the order for inpatient admission. W = Clinically undetermined if the condition was present at the time of the order for inpatient admission. Please continue to document in your progress notes and discharge summary in order to capture severity of illness and risk of mortality. Include clinical findings that support your diagnosis. FYI: Press F11 to launch patient chart. ESTEPHANIA
--- NOTE | 2017-04-17 16:19 | US ---
EXAMINATION TYPE: US carotid duplex BILAT DATE OF EXAM: 04/17/2017 COMPARISON: NONE CLINICAL HISTORY: syncope. EXAM MEASUREMENTS: RIGHT: Peak Systolic Velocity (PSV) cm/sec ----- Right CCA: 49.3 ----- Right ICA: 152 ----- Right ECA: 76 ICA/CCA ratio: 3.1 RIGHT: End Diastole cm/sec ----- Right CCA: 4.2 ----- Right ICA: 27.4 ----- Right ECA: 0 LEFT: Peak Systolic Velocity (PSV) cm/sec ----- Left CCA: 44.4 ----- Left ICA: 100.3 ----- Left ECA: 84 ICA/CCA ratio: 2.2 LEFT: End Diastole cm/sec ----- Left CCA: 0 ----- Left ICA: 22 ----- Left ECA: 0 VERTEBRALS (direction of flow): Right Vertebral: Antegrade Left Vertebral: Retrograde Grayscale images show moderate shadowing plaque at right carotid bulb. There is eccentric mild to mod erate plaquing at left carotid bulb. Velocity measurements and ratios remain are elevated on the righ t. IMPRESSION: Moderate atherosclerotic change bilaterally right greater than left with hemodynamically significant stenosis estimated 50-69% felt present on the right. Further investigation with CTA or M RA of the neck is advised to better evaluate and characterize. Criteria for Assigning % of Stenosis / Diameter reduction (Estimation based on the indirect measurements of the internal carotid artery velocities (ICA PSV). 50 to 69% stenosis=ICA PSV of 125 to 230 cm/s: ration 2.0 ? 4.0: ICA EDV 40-100 cm/s.
[2017-04-17 17:24] LABS: Glucose,Whole Blood 207 mg/dL (75-99)
--- NOTE | 2017-04-17 19:07 | CT ---
EXAMINATION TYPE: CT chest wo con DATE OF EXAM: 04/17/2017 COMPARISON: Chest x-ray April 14, 2017 HISTORY: lung nodules CT DLP: 607 mGycm. Automated Exposure Control for Dose Reduction was Utilized. TECHNIQUE: CT scan of the thorax is performed without IV contrast. FINDINGS: LUNGS: The lungs are grossly clear, there is no concerning parenchymal mass or nodule identified. Th ere are a few scattered tiny nonspecific opacities, some of which are calcified and some which are pl eural-based, and a few linear shadows; all of doubtful clinical significance. PLEURAL SPACES: There is no pleural effusion or pneumothorax seen. AIRWAYS: The tracheobronchial tree is patent. MEDIASTINUM: Lack of IV contrast is noted to limit evaluation for mediastinal and especially hilar ad enopathy. There are no definitive greater than 1 cm hilar or mediastinal lymph nodes. No cardiomega ly or pericardial effusion is seen. OTHER: No additional significant abnormality is seen. IMPRESSION: NO ACUTE PROCESS. NO CONCERNING LUNG NODULE.
[2017-04-17] MEDS: MELATONIN 5 MG TABLET PO SCH (22:39)
[2017-04-17] MEDS: HEPARIN SODIUM,PORCINE 5,000 UNIT/ML 1 ML VIAL SQ SCH (22:39)
[2017-04-17] MEDS: TAMSULOSIN 0.4 MG CAP.ER.24H PO SCH (22:40)
[2017-04-17] MEDS: INSULIN GLARGINE 100 UNIT/ML 10 ML VIAL SQ SCH (22:40)
[2017-04-17] MEDS: SENNOSIDES-DOCUSATE SODIUM 1 EACH TAB PO SCH (22:49)
[2017-04-17 22:53] LABS: Glucose,Whole Blood 248 mg/dL (75-99)
[2017-04-18] MEDS: LEVOTHYROXINE 25 MCG TAB PO SCH (06:31)
[2017-04-18 07:17] LABS: Glucose,Whole Blood 91 mg/dL (75-99)
[2017-04-18] MEDS: INSULIN LISPRO (humaLOG) 300 UNIT/3 ML VIAL SQ SCH ×4 (07:26→22:13)
[2017-04-18] MEDS: VANCOMYCIN 1,250 MG in SODIUM CHLORIDE 0.9% 250 ML IVPB SCH ×2 (07:47→20:28)
[2017-04-18] MEDS: HYDROcodone/APAP 5-325MG 1 EACH TAB PO PRN ×3 (07:47→20:01)
[2017-04-18] MEDS: HEPARIN SODIUM,PORCINE 5,000 UNIT/ML 1 ML VIAL SQ SCH ×2 (07:47→20:15)
[2017-04-18] MEDS: CHOLECALCIFEROL 1,000 UNIT TAB PO SCH (07:48)
[2017-04-18] MEDS: FAMOTIDINE 20 MG TAB PO SCH (07:48)
[2017-04-18] MEDS: LOSARTAN 50 MG TAB PO SCH (07:48)
[2017-04-18] MEDS: ASPIRIN 81 MG CHEW PO SCH (07:48)
[2017-04-18] MEDS: OXYBUTYNIN XL 5 MG TAB.ER.24 PO SCH (07:48)
[2017-04-18] MEDS: THIAMINE 100 MG TAB PO SCH (07:49)
[2017-04-18] MEDS: MULTIVITAMINS, THERA 1 EACH TAB PO SCH (07:49)
[2017-04-18] MEDS: MENTHOL-ZINC OXIDE OINT 113 GM TUBE TOPICAL SCH ×2 (07:49→20:19)
[2017-04-18] MEDS: FOLIC ACID 1 MG TAB PO SCH (07:49)
[2017-04-18 08:38] LABS: Basophils % (A) 1 %; CH 31.9; CHCM 33.1; Eosinophils % (A) 0 %; HCT 31.7 % (39.0-53.0); HDW 2.24; HGB 10.5 gm/dL (13.0-17.5); Luc # (Auto) 0.07; Luc % (Auto) 1; Lymphocytes # (A) 1.1 k/uL (1.0-4.8); Lymphocytes % (A) 17 %; MCV 96.9 fL (80.0-100.0); Mean Platelet Volume 7.6; Monocytes # (A) 0.7 k/uL (0-1.0); Monocytes % (A) 11 %; Neutrophils # (A) 4.5 k/uL (1.3-7.7); Neutrophils % (A) 70 %; RBC 3.27 m/uL (4.30-5.90); RDW 13.5 % (11.5-15.5); WBC 6.5 k/uL (3.8-10.6); WBC (Perox) 6.81
[2017-04-18 09:16] LABS: ALT 23 U/L (21-72); AST 18 U/L (17-59); Alkaline Phosphatase 53 U/L (38-126); Anion Gap 8 mmol/L; Blood Urea Nitrogen 13 mg/dL (9-20); Calcium 9.1 mg/dL (8.4-10.2); Carbon Dioxide 24 mmol/L (22-30); Chloride 104 mmol/L (98-107); Glucose 70 mg/dL (74-99); Magnesium 1.6 mg/dL (1.6-2.3); Non-African American GFR(MDRD) >60 (>60 ml/min/1.73 sqM); Potassium 4.3 mmol/L (3.5-5.1); Sodium 136 mmol/L (137-145); Total Bilirubin 0.9 mg/dL (0.2-1.3); Total Protein 5.7 g/dL (6.3-8.2)
--- NOTE | 2017-04-18 11:06 | P.CNPUL ---
History of Present Illness Consult date: 04/17/17 Requesting physician: Dominga Anderson Reason for consult: other (pulmonary nodule) Chief complaint: shortness of breath History of present illness: Is an 82-year-old male being seen, examined and evaluated today. This patient came into the hospital after a syncopal episode at [facility] rehab facility which was most likely related to dehydration and intravascular volume depletion. He was given IV fluids and showed improvement. Patient is also noted to be using a sling to his left shoulder for a history of dislocation. Patient was at [facility] for rehabilitation. Patient has a chronic indwelling Ozuna catheter follows with urology and has operative culture for MRSA in the urine. Consult was made to our services for pulmonary nodule that was noted on the chest x- ray. The chest x-ray impression stated correlate for COPD. There is a right- sided pulmonary nodule in a CT of the chest is recommended. Also density in the lateral view anterior of the humerus may be related to soft tissue overlap also could be assessed with a computed tomography scan. Patient also has cardiology on consult. Added Doppler will be performed today. Patient is also scheduled to have an echo. Patient also has physical therapy/occupational therapy for medical debility and left shoulder education. When of care is for the patient to return to [facility] at discharge. Upon examination the patient's resting up in bed on room air he denies any cough or congestion at this time. Patient states he does get short of breath on and off with exertion, of her breathing treatments to help with this. Review of Systems 14 point review of systems was completed and is negative unless noted above in the HPI. Past Medical History Past Medical History: Asthma, Diabetes Mellitus, Eye Disorder, Hyperlipidemia, Hypertension, Prostate Disorder, Thyroid Disorder Additional Past Medical History / Comment(s): Recent UTI with ABX, fell 02/18/17 with L shoulder dislocation with surgery, IDDM type II, hypothyroid, generalized arthritis, restless leg syndrome, BPH, occasional vertigo, L eye pycffh-hwjzvbaksia-unuup glass eye, mac degeneration R eye-gets injections. History of Any Multi-Drug Resistant Organisms: MRSA Date of last positivie culture/infection: 04/16/17 MDRO Source:: urine Past Surgical History: Cholecystectomy, Orthopedic Surgery Additional Past Surgical History / Comment(s): 02/18/17 closed reduction L shoulder, 2013 Open cholecystectomy, colonoscopies x 3, L eye numerous surgeries and eventual enucleation. Past Anesthesia/Blood Transfusion Reactions: No Reported Reaction Smoking Status: Former smoker - Past Family History Father Family Medical History: No Reported History Mother Family Medical History: Cancer Additional Family Medical History / Comment(s): Mother of metastatic cancer at the age of 54yrs. old. Medications and Allergies Home Medications Medication Instructions Recorded Confirmed Type Insulin Glargine,Hum.rec.anlog 16 units SQ HS 08/24/14 04/14/17 History [Lantus Solostar] Levothyroxine Sodium [Synthroid] 25 mcg PO DAILY 08/24/14 04/14/17 History Losartan Potassium 50 mg PO DAILY 08/24/14 04/14/17 History rOPINIRole HCL [Ropinirole HCl] 2 mg PO TID 08/24/14 04/14/17 History Albuterol Inhaler [Ventolin Hfa 2 puff INHALATION RT-Q4H PRN 02/17/17 04/14/17 History Inhaler] Aspirin EC [Ecotrin Low Dose] 81 mg PO DAILY 02/17/17 04/14/17 History Cholecalciferol [Vitamin D3] 1,000 unit PO DAILY 02/17/17 04/14/17 History Fesoterodine Fumarate [Toviaz] 4 mg PO DAILY 02/17/17 04/14/17 History Folic Acid 1 mg PO DAILY 02/17/17 04/14/17 History Furosemide [Lasix] 20 mg PO DAILY 02/17/17 04/14/17 History Meclizine [Antivert] 25 mg PO Q8H PRN 02/17/17 04/14/17 History Melatonin 20 mg PO HS 02/17/17 04/14/17 History Multivitamins, Thera [Multivitamin 1 tab PO DAILY 02/17/17 04/14/17 History (formulary)] Spironolactone-Hctz 25-25Mg 1 tab PO DAILY 02/17/17 04/14/17 History [Aldactazide 25-25Mg] Tamsulosin HCl [Flomax] 0.8 mg PO HS 02/17/17 04/14/17 History Acetaminophen Tab [Tylenol Tab] 1,000 mg PO Q6HR PRN 04/14/17 04/14/17 History Acetaminophen Tab [Tylenol Tab] 500 mg PO Q6H PRN MDD 6 TABS 04/14/17 04/14/17 History Bisacodyl [Dulcolax] 10 mg RECTAL DAILY PRN 04/14/17 04/14/17 History HYDROcodone/APAP 5-325MG [[place] 5] 1 tab PO Q6H PRN 04/14/17 04/14/17 History INSULIN LISPRO (humaLOG) [HumaLOG] See Protocol SQ ACHS 04/14/17 04/14/17 History Ibuprofen [Motrin] 200 mg PO DAILY PRN 04/14/17 04/14/17 History Ibuprofen [Motrin] 400 mg PO TID 04/14/17 04/14/17 History Magnesium Hydroxide [Milk of 2,400 mg PO DAILY PRN 04/14/17 04/14/17 History Magnesia] Menthol [Biofreeze] 1 applic TOPICAL Q12H 04/14/17 04/14/17 History Na Phos,M-B/Na Phos,Di-Ba [Fleet 133 ml RECTAL DAILY PRN 04/14/17 04/14/17 History Adult] Sennosides-Docusate Sodium 2 tab PO HS 04/14/17 04/14/17 History [Senokot-S] Thiamine [Vitamin B-1] 100 mg PO DAILY 04/14/17 04/14/17 History Vits A and D/White Pet/Lanolin [A 1 applic TOPICAL BID 04/14/17 04/14/17 History and D Ointment] Allergies Allergy/AdvReac Type Severity Reaction Status Date / Time SALONI Inhibitors Allergy Unknown Unknown Verified 04/14/17 11:11 enalaprilat [From Vasotec] Allergy Unknown Unknown Verified 04/14/17 11:11 tramadol AdvReac Hallucinati Verified 04/14/17 11:41 ons Physical Exam Vitals: Vital Signs Temp Pulse Resp BP Pulse Ox 04/18/17 08:00 79 04/18/17 07:00 97.5 F L 79 16 121/57 96 04/17/17 23:00 97.0 F L 86 16 91/52 98 04/17/17 15:00 97.9 F 77 16 119/71 99 Intake and Output 04/17/17 04/18/17 04/18/17 22:59 06:59 14:59 Output Total 850 325 Balance -850 -325 Output: Urine 850 325 Other: Voiding Method Indwelling Catheter Indwelling Catheter # Voids 1 1 GENERAL EXAM: Alert, active, comfortable in no apparent distress. HEAD: Normocephalic. EYES: Normal reaction of pupils, equal size. NOSE: Clear with pink turbinates. THROAT: No erythema or exudates. NECK: No masses, no JVD. CHEST: No chest wall deformity. LUNGS: Equal air entry with no crackles, wheeze, rhonchi or dullness. Bases diminished CVS: S1 and S2 normal with no audible mumurs, regular rhythm. ABDOMEN: No hepatosplenomegaly, normal bowel sounds, no guarding or rigidity. EXTREMITIES: No edema noted, pedal pulses palpable. Left shoulder limited range of motion and is an orthopedic sling. SKIN: No rashes CENTRAL NERVOUS SYSTEM: No focal deficits, tone is normal in all 4 extremities. Results - Laboratory Findings CBC and BMP: 04/18/17 07:50 04/18/17 07:50 ABG ABG pH 7.44 (7.35-7.45) 04/14/17 11:31 ABG pCO2 36 mmHg (35-45) 04/14/17 11:31 ABG pO2 110 mmHg (83-108) H 04/14/17 11:31 ABG O2 Saturation 99.0 % (94-97) H 04/14/17 11:31 PT/INR, D-dimer PT 9.9 sec (9.0-12.0) 04/14/17 11:26 INR 1.0 (<1.1) 04/14/17 11:26 Abnormal lab findings: Abnormal Labs 04/14/17 04/14/17 04/14/17 11:18 11:26 11:26 RBC 3.63 L Hgb 11.7 L Hct 35.5 L Lymphocytes # 0.7 L ABG pO2 ABG Total CO2 ABG O2 Saturation Sodium Potassium Chloride BUN Creatinine Glucose POC Glucose (mg/dL) 289 H Hemoglobin A1c Total Creatine Kinase 22 L Total Protein Albumin Ur Leukocyte Esterase Urine WBC Hyaline Casts Urine Mucus 04/14/17 04/14/17 04/14/17 11:26 11:26 11:31 RBC Hgb Hct Lymphocytes # ABG pO2 110 H ABG Total CO2 26 H ABG O2 Saturation 99.0 H Sodium 136 L Potassium 5.3 H Chloride 97 L BUN 38 H Creatinine 1.27 H Glucose 279 H POC Glucose (mg/dL) Hemoglobin A1c 7.6 H Total Creatine Kinase Total Protein Albumin Ur Leukocyte Esterase Urine WBC Hyaline Casts Urine Mucus 04/14/17 04/14/17 04/14/17 11:47 17:07 20:01 RBC Hgb Hct Lymphocytes # ABG pO2 ABG Total CO2 ABG O2 Saturation Sodium Potassium Chloride BUN Creatinine Glucose POC Glucose (mg/dL) 313 H 246 H Hemoglobin A1c Total Creatine Kinase Total Protein Albumin Ur Leukocyte Esterase Moderate H Urine WBC 10 H Hyaline Casts 18 H Urine Mucus Rare H 04/15/17 04/15/17 04/15/17 06:57 11:47 16:54 RBC Hgb Hct Lymphocytes # ABG pO2 ABG Total CO2 ABG O2 Saturation Sodium Potassium Chloride BUN Creatinine Glucose POC Glucose (mg/dL) 132 H 233 H 340 H Hemoglobin A1c Total Creatine Kinase Total Protein Albumin Ur Leukocyte Esterase Urine WBC Hyaline Casts Urine Mucus 04/15/17 04/16/17 04/16/17 20:15 06:21 06:21 RBC 3.16 L Hgb 10.3 L Hct 30.7 L Lymphocytes # 0.9 L ABG pO2 ABG Total CO2 ABG O2 Saturation Sodium 135 L Potassium Chloride BUN Creatinine Glucose 120 H POC Glucose (mg/dL) 216 H Hemoglobin A1c Total Creatine Kinase Total Protein Albumin Ur Leukocyte Esterase Urine WBC Hyaline Casts Urine Mucus 04/16/17 04/16/17 04/16/17 06:53 12:24 16:57 RBC Hgb Hct Lymphocytes # ABG pO2 ABG Total CO2 ABG O2 Saturation Sodium Potassium Chloride BUN Creatinine Glucose POC Glucose (mg/dL) 140 H 176 H 214 H Hemoglobin A1c Total Creatine Kinase Total Protein Albumin Ur Leukocyte Esterase Urine WBC Hyaline Casts Urine Mucus 04/16/17 04/17/17 04/17/17 21:12 07:16 08:46 RBC 3.30 L Hgb 10.7 L Hct 32.5 L Lymphocytes # ABG pO2 ABG Total CO2 ABG O2 Saturation Sodium Potassium Chloride BUN Creatinine Glucose POC Glucose (mg/dL) 283 H 114 H Hemoglobin A1c Total Creatine Kinase Total Protein Albumin Ur Leukocyte Esterase Urine WBC Hyaline Casts Urine Mucus 04/17/17 04/17/17 04/17/17 08:46 11:47 17:22 RBC Hgb Hct Lymphocytes # ABG pO2 ABG Total CO2 ABG O2 Saturation Sodium 134 L Potassium Chloride BUN Creatinine Glucose 149 H POC Glucose (mg/dL) 146 H 207 H Hemoglobin A1c Total Creatine Kinase Total Protein 5.7 L Albumin 3.2 L Ur Leukocyte Esterase Urine WBC Hyaline Casts Urine Mucus 04/17/17 04/18/17 04/18/17 22:50 07:50 07:50 RBC 3.27 L Hgb 10.5 L Hct 31.7 L Lymphocytes # ABG pO2 ABG Total CO2 ABG O2 Saturation Sodium 136 L Potassium Chloride BUN Creatinine Glucose 70 L POC Glucose (mg/dL) 248 H Hemoglobin A1c Total Creatine Kinase Total Protein 5.7 L Albumin 3.2 L Ur Leukocyte Esterase Urine WBC Hyaline Casts Urine Mucus - Diagnostic Findings Chest x-ray: report reviewed, image reviewed Assessment and Plan Plan: Assessment Acute exacerbation of COPD Pulmonary nodule noted on chest x-ray Catheter associated UTI present on admission Syncope most related to dehydration and intravascular depletion. Hypertension Acute kidney injury likely related to dehydration Anterior dislocation of the left shoulder Type 2 diabetes mellitus Mild intermittent asthma Chronic urinary retention Plan Medications have been reviewed and will be continued as ordered. Obtain a CT of the chest. Patient will be started on scheduled breathing treatments. Continue with IV antibiotics. Continue with pulmonary hygiene, coughing and deep breathing exercises, and supportive care. Supplemental oxygen to maintain oxygen saturations of 92% or better. Continue nebulizer treatments. GI and DVT prophylaxis. Continue PT OT. We will continue to monitor labs/results and adjust treatment as necessary. Further recommendations pending. I performed an examination of the patient and discussed their management with the nurse practitioner. I have reviewed the nurse practitioner's note and agree with the documented findings and plan of care.
--- NOTE | 2017-04-18 11:13 | P.PN ---
Subjective 04/17/17- This is an 82-year-old male being seen, examined and evaluated today. This patient came into the hospital after a syncopal episode at [facility] rehab facility which was most likely related to dehydration and intravascular volume depletion. He was given IV fluids and showed improvement. Patient is also noted to be using a sling to his left shoulder for a history of dislocation. Patient was at [facility] for rehabilitation. Patient has a chronic indwelling Ozuna catheter follows with urology and has operative culture for MRSA in the urine. Consult was made to our services for pulmonary nodule that was noted on the chest x-ray. The chest x-ray impression stated correlate for COPD. There is a right-sided pulmonary nodule in a CT of the chest is recommended. Also density in the lateral view anterior of the humerus may be related to soft tissue overlap also could be assessed with a computed tomography scan. Patient also has cardiology on consult. Added Doppler will be performed today. Patient is also scheduled to have an echo. Patient also has physical therapy/ occupational therapy for medical debility and left shoulder education. When of care is for the patient to return to [facility] at discharge. Upon examination the patient's resting up in bed on room air he denies any cough or congestion at this time. Patient states he does get short of breath on and off with exertion, of her breathing treatments to help with this. 04/18/17 examination patient's resting up in bed on room air. Patient states breathing treatments are beneficial to his shortness of breath. Patient did have a CT of the chest to follow-up on his abnormal chest x-ray from 2016. CT of the chest impression no acute process concerning lung nodule noted. Results were discussed with the patient. Patient also had a carotid ultrasound completed which revealed moderate atherosclerotic change bilaterally , right greater than the left with hemodynamically significant stenosis estimated 50-69% felt this present on the right. Further investigation with a CTA or MRA of the neck is advised. Cardiology is also on consult. Lab work was reviewed. Objective - Vital Signs Vital signs: Vital Signs Temp 97.5 F L 04/18/17 07:00 Pulse 79 04/18/17 08:00 Resp 16 04/18/17 07:00 BP 121/57 04/18/17 07:00 Pulse Ox 96 04/18/17 07:00 Intake & Output 04/17/17 04/18/1717 18:59 06:59 18:59 Intake Total 250 Output Total 700 475 Balance -450 -475 Intake: Intake, IV Titration 250 Amount Vancomycin 1,250 mg In 250 Sodium Chloride 0.9% 250 ml @ 125 mls/hr IVPB Q12HR [facility] Rx#:[id number] Output: Urine 700 475 Other: Voiding Method Indwelling Catheter Indwelling Catheter # Voids 1 - Exam GENERAL EXAM: Alert, active, comfortable in no apparent distress. HEAD: Normocephalic. EYES: Normal reaction of pupils, equal size. NOSE: Clear with pink turbinates. THROAT: No erythema or exudates. NECK: No masses, no JVD. CHEST: No chest wall deformity. LUNGS: Equal air entry with no crackles, wheeze, rhonchi or dullness. Bases diminished CVS: S1 and S2 normal with no audible mumurs, regular rhythm. ABDOMEN: No hepatosplenomegaly, normal bowel sounds, no guarding or rigidity. EXTREMITIES: No edema noted, pedal pulses palpable. Left shoulder limited range of motion and is an orthopedic sling. SKIN: No rashes CENTRAL NERVOUS SYSTEM: No focal deficits, tone is normal in all 4 extremities. - Labs CBC & Chem 7: 04/18/17 07:50 04/18/17 07:50 Labs: Abnormal Lab Results - Last 24 Hours (Table) 04/17/17 04/17/17 04/17/17 Range/Units 11:47 17:22 22:50 RBC (4.30-5.90) m/uL Hgb (13.0-17.5) gm/dL Hct (39.0-53.0) % Sodium (137-145) mmol/L Glucose (74-99) mg/dL POC Glucose (mg/dL) 146 H 207 H 248 H (75-99) mg/dL Total Protein (6.3-8.2) g/dL Albumin (3.5-5.0) g/dL 04/18/17 04/18/17 Range/Units 07:50 07:50 RBC 3.27 L (4.30-5.90) m/uL Hgb 10.5 L (13.0-17.5) gm/dL Hct 31.7 L (39.0-53.0) % Sodium 136 L (137-145) mmol/L Glucose 70 L (74-99) mg/dL POC Glucose (mg/dL) (75-99) mg/dL Total Protein 5.7 L (6.3-8.2) g/dL Albumin 3.2 L (3.5-5.0) g/dL Microbiology - Last 24 Hours (Table) 04/14/17 20:05 Urine Culture - Final Urine,Catheterized Methicillin resist S. aureus Assessment and Plan Plan: Assessment Acute exacerbation of COPD Pulmonary nodule noted on chest x-ray, however CT reveals no nodule Catheter associated UTI present on admission Syncope most related to dehydration and intravascular depletion. Hypertension Acute kidney injury likely related to dehydration Anterior dislocation of the left shoulder Type 2 diabetes mellitus Mild intermittent asthma Chronic urinary retention Plan Medications have been reviewed and will be continued as ordered. Results from the CT of the chest were discussed with the patient, no pulmonary nodule isn't seen on CT. Patient should still follow up with our services. Patient has COPD and on scheduled breathing treatments. Continue with IV antibiotics. Continue with pulmonary hygiene, coughing and deep breathing exercises, and supportive care. Supplemental oxygen to maintain oxygen saturations of 92% or better. Continue nebulizer treatments. GI and DVT prophylaxis. Continue PT OT. Patient had an echo those results are not readily available at this time. Patient's plan of care is to be discharged to [facility] rehab as previously. We will continue to monitor labs/results and adjust treatment as necessary. Further recommendations pending. I performed an examination of the patient and discussed their management with the nurse practitioner. I have reviewed the nurse practitioner's note and agree with the documented findings and plan of care.
--- NOTE | 2017-04-18 11:17 | ECHOF ---
Referral Reason: MEASUREMENTS -------- HEIGHT: 177.8 cm WEIGHT: 62.6 kg BP: 101/51 RVIDd: 2.3 cm (< 3.3) IVSd: 1.2 cm (0.6 - 1.1) LVIDd: 3.6 cm (3.9 - 5.3) LVPWd: 1.0 cm (0.6 - 1.1) IVSs: 1.7 cm LVIDs: 2.9 cm LVPWs: 1.6 cm LAESV Index (A-L): 19.23 ml/m Ao Diam: 3.1 cm (2.0 - 3.7) AV Cusp: 1.7 cm (1.5 - 2.6) LA Diam: 2.6 cm (2.7 - 3.8) MV EXCURSION: 16.095 mm (> 18.000) MV EF SLOPE: 54 mm/s (70 - 150) EPSS: 0.5 cm MV E Grabiel: 0.72 m/s MV DecT: 468 ms MV A Grabiel: 0.84 m/s MV E/A Ratio: 0.85 RAP: 5.00 mmHg RVSP: 7.51 mmHg FINDINGS -------- Sinus rhythm. This was a technically difficult study with suboptimal views. The left ventricular size is normal. There is borderline concentric left ventricular hypertrophy. Overall left ventricular systolic function is normal with, an EF between 55 - 60 %. The right ventricle is normal in size and function. Normal LA size by volume 22+/-6 ml/m2. The right atrium is normal in size. 1.5mg of Definity was utilized for enhancement of images Aortic valve is trileaflet and is mildly thickened. There is no evidence of aortic regurgitation. The mitral valve leaflets are mildly thickened. There is trace mitral regurgitation. Trace tricuspid regurgitation present. There is no evidence of pulmonary hypertension. The right ventricular systolic pressure, as measured by Doppler, is 7.51mmHg. The pulmonic valve was not well visualized. There is no pulmonic regurgitation present. The aortic root size is normal. IVC Not well visulized. There is no pericardial effusion. CONCLUSIONS -------- 1. Sinus rhythm. 2. Trace tricuspid regurgitation present. 3. There is no evidence of pulmonary hypertension. 4. The pulmonic valve was not well visualized. 5. There is no pulmonic regurgitation present. 6. The aortic root size is normal. 7. IVC Not well visulized. 8. There is no pericardial effusion. 9. This was a technically difficult study with suboptimal views. 10. There is borderline concentric left ventricular hypertrophy. 11. Overall left ventricular systolic function is normal with, an EF between 55 - 60 %. 12. Normal LA size by volume 22+/-6 ml/m2. 13. 1.5mg of Definity was utilized for enhancement of images 14. Aortic valve is trileaflet and is mildly thickened. 15. The mitral valve leaflets are mildly thickened. 16. There is trace mitral regurgitation. GENERAL ENGINEER: Mike Lopez RDCS
[2017-04-18 11:31] LABS: Glucose,Whole Blood 104 mg/dL (75-99)
[2017-04-18] MEDS: ACETAMINOPHEN TAB 500 MG TAB PO PRN (12:32)
[2017-04-18] MEDS: IPRATROPIUM-ALBUTEROL 3 ML NEB INHALATION SCH ×2 (14:50→21:17)
[2017-04-18 17:13] LABS: Glucose,Whole Blood 158 mg/dL (75-99)
--- NOTE | 2017-04-18 17:43 | P.PN ---
Subjective Patient presented to the hospital after syncopal episode. Likely secondary to dehydration and intravascular volume depletion. He received IV fluids. And has shown improvement. Today he is complaining of left shoulder and arm pain. He has a known history of dislocation of that left shoulder. Arm is in sling. Patient requesting pain cream that he uses for his arm. It is nonformulary here. Patient is scheduled for echo today. Urine culture came back positive with MRSA. And he is started on IV vancomycin. He has a chronic indwelling Ozuna catheter. He is followed with urology. Catheter was inserted and [place] patient not sure how long ago. Catheter was replaced on 04/18/2017. Patient was told by urology that he needs to keep the catheter in for another month. Patient denies any chest pain or shortness of breath. Denies any nausea or vomiting. Reports having bowel movements. Reports eating most of his food. Objective - Vital Signs Vital signs: Vital Signs Temp 97.1 F L 04/18/17 15:00 Pulse 71 04/18/17 15:00 Resp 16 04/18/17 15:00 BP 94/51 04/18/17 15:00 Pulse Ox 98 04/18/17 15:00 Intake & Output 04/17/17 04/18/17 04/18/17 18:59 06:59 18:59 Intake Total 250 Output Total 700 475 350 Balance -450 -475 -350 Intake: Intake, IV Titration 250 Amount Vancomycin 1,250 mg In 250 Sodium Chloride 0.9% 250 ml @ 125 mls/hr IVPB Q12HR [facility] Rx#:[id number] Output: Urine 700 475 350 Other: Voiding Method Indwelling Catheter Indwelling Catheter # Voids 1 - Exam HEENT head normocephalic and atraumatic Neck is supple no JVD no goiter no lymphadenopathy Chest is clear to auscultation no crackles no wheezing Cardiac exam reveals regular heart sounds S1 and S2 no gallops no murmurs Abdomen is soft nontender no organomegaly with normal bowel sounds Extremity exam reveals no edema no cyanosis or clubbing - Labs CBC & Chem 7: 04/18/17 07:50 04/18/17 07:50 Labs: Abnormal Lab Results - Last 24 Hours (Table) 04/17/17 04/18/17 04/18/17 Range/Units 22:50 07:50 07:50 RBC 3.27 L (4.30-5.90) m/uL Hgb 10.5 L (13.0-17.5) gm/dL Hct 31.7 L (39.0-53.0) % Sodium 136 L (137-145) mmol/L Glucose 70 L (74-99) mg/dL POC Glucose (mg/dL) 248 H (75-99) mg/dL Total Protein 5.7 L (6.3-8.2) g/dL Albumin 3.2 L (3.5-5.0) g/dL 04/18/17 04/18/17 Range/Units 11:29 17:03 RBC (4.30-5.90) m/uL Hgb (13.0-17.5) gm/dL Hct (39.0-53.0) % Sodium (137-145) mmol/L Glucose (74-99) mg/dL POC Glucose (mg/dL) 104 H 158 H (75-99) mg/dL Total Protein (6.3-8.2) g/dL Albumin (3.5-5.0) g/dL Assessment and Plan Plan: 1. Syncope: most likely related to dehydration and intravascular depletion. Systolic blood pressure on presentation in the 70s and 80s. Patient was given IV fluid hydration. I would recheck orthostatic blood pressure. Twelve-lead EKG showed normal sinus rhythm. We will continue telemetry monitoring. Awaiting echo results 2. Essential hypertension, blood pressure on the lower side on presentation secondary to intravascular depletion. Patient is currently off of his diuretics which include the Lasix, Aldactone and hydrochlorothiazide. Blood pressure stable this morning at 106/58 3. Acute kidney injury likely related to dehydration and diuretics. Kidney function has improved with IV fluids. Continue to monitor 4. 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 Consult physical therapy. [id number] zinc oxide ointment to apply twice a day to arm help with pain control. Continue [place]. 5. Type 2 diabetes mellitus, maintained on insulin. A1c 7.6. We will continue to monitor blood glucose closely. 6. Hypothyroidism 7. Mild intermittent asthma with no evidence of exacerbation 8. Chronic urinary retention with chronic indwelling Ozuna catheter following with urology as an outpatient 9. Catheter associated UTI with urine culture growing MRSA. Start IV vancomycin. We'll monitor GI prophylaxis Pepcid and DVT prophylaxis subcu heparin
--- NOTE | 2017-04-18 17:53 | CONS ---
Mr. Feliciano is an 82-year-old male who presented with a presyncopal episode. The patient is a resident of [facility]. He went to see his urologist, and when he got up he felt quite woozy and almost passed out. According to him and to his family , he did not have a full syncope. Patient was not feeling well in the morning; was a little bit dizzy when he went, and apparently he did not eat well. He did not have any palpitations. No chest pain. He did not have any change in his breathing. He denies any prior cardiac history. He is in [facility] because he fell off his bed in February and dislocated his left shoulder. He has no prior cardiac history or recent cardiac workup. He has no history of PND, orthopnea or peripheral edema. His coronary risk factors are negative for smoking. He is diabetic, hypertensive. His lipid profile is not available to me. His medications include: 1. Aspirin. 2. Insulin. 3. Ibuprofen. 4. Lasix 20 mg daily. 5. Losartan 50 mg daily. 6. Meclizine. 7. Toviaz. 8. Aldactazide. 9. Flomax. 10. Thiamine. REVIEW OF SYSTEMS: RESPIRATORY SYSTEM: He has no recent wheezing, no cough, no history of documented obstructive lung disease. GI SYSTEM: No recent GI bleeding. No peptic ulcer disease. SYSTEM: No dysuria or hematuria. He has an indwelling Ozuna catheter. NERVOUS SYSTEM: No history of seizures. PHYSICAL EXAMINATION: He is an 82-year-old male, alert, oriented. No apparent distress. Blood pressure 121/60 with a heart rate 70. HEAD: Normocephalic. EYES: Sclerae anicteric. NECK: Good carotid upstroke. No bruit. LUNGS: Clear to auscultation. HEART: Regular rate and rhythm. S1, S2. No S3. No rub or gallop appreciated. ABDOMEN: Soft, non-tender. LEFT SHOULDER: In a sling. EXTREMITIES: No edema. Lab data revealed BUN and creatinine of 13 and 0.73. Potassium 4.3. Hemoglobin of 10.5. On admission his BUN was 38 and his creatinine was 1.27. His EKG revealed a sinus mechanism with left axis deviation, poor R-wave progression. IMPRESSION: 1. Presyncopal episode, most likely orthostatic hypotension and dehydration. 2. History of diabetes. 3. History of hypertension. 4. Renal function abnormality, resolved. RECOMMENDATIONS: Patient had an echocardiogram that revealed no evidence of segmental wall motion abnormality. His carotid duplex scan revealed mild to moderate bilateral obstructive disease with no critical stenosis. He had an echocardiogram that showed a preserved systolic function with no significant valvular disease. At this time I see no evidence of any significant cardiac abnormality. I do not see any reason for further cardiac workup. I have discussed those findings with the patient and his family and have encouraged him to change position gradually. Thank you for this consult. Will follow with you. ESTEPHANIA
[2017-04-18] MEDS: MELATONIN 5 MG TABLET PO SCH (20:15)
[2017-04-18] MEDS: TAMSULOSIN 0.4 MG CAP.ER.24H PO SCH (20:19)
[2017-04-18] MEDS: SENNOSIDES-DOCUSATE SODIUM 1 EACH TAB PO SCH (20:22)
[2017-04-18 22:08] LABS: Glucose,Whole Blood 94 mg/dL (75-99)
[2017-04-18] MEDS: INSULIN GLARGINE 100 UNIT/ML 10 ML VIAL SQ SCH (22:09)
[2017-04-19] MEDS: LEVOTHYROXINE 25 MCG TAB PO SCH (06:41)
[2017-04-19] MEDS: INSULIN LISPRO (humaLOG) 300 UNIT/3 ML VIAL SQ SCH ×2 (07:12→12:30)
[2017-04-19 07:13] LABS: Glucose,Whole Blood 52 mg/dL (75-99)
[2017-04-19 07:30] LABS: Glucose,Whole Blood 99 mg/dL (75-99)
[2017-04-19] MEDS ORDERED: VANCOMYCIN TROUGH DUE 1 EACH MISC MISCELLANE ONE (08:00)
[2017-04-19 08:16] VITALS: BP 100/55; PULSE 79; RESP 18; TEMP 97
[2017-04-19] MEDS: HYDROcodone/APAP 5-325MG 1 EACH TAB PO PRN ×2 (08:34→14:01)
[2017-04-19] MEDS: VANCOMYCIN 1,250 MG in SODIUM CHLORIDE 0.9% 250 ML IVPB SCH (08:39)
[2017-04-19] MEDS: CHOLECALCIFEROL 1,000 UNIT TAB PO SCH (08:40)
[2017-04-19] MEDS: FAMOTIDINE 20 MG TAB PO SCH (08:40)
[2017-04-19] MEDS: HEPARIN SODIUM,PORCINE 5,000 UNIT/ML 1 ML VIAL SQ SCH (08:40)
[2017-04-19] MEDS: OXYBUTYNIN XL 5 MG TAB.ER.24 PO SCH (08:41)
[2017-04-19] MEDS: ASPIRIN 81 MG CHEW PO SCH (08:41)
[2017-04-19] MEDS: LOSARTAN 50 MG TAB PO SCH (08:41)
[2017-04-19] MEDS: THIAMINE 100 MG TAB PO SCH (08:42)
[2017-04-19 08:44] LABS: Basophils % (A) 0 %; CH 31.4; CHCM 32.8; Eosinophils % (A) 0 %; HCT 30.4 % (39.0-53.0); HDW 2.27; HGB 10.4 gm/dL (13.0-17.5); Luc # (Auto) 0.07; Luc % (Auto) 1; Lymphocytes # (A) 0.9 k/uL (1.0-4.8); Lymphocytes % (A) 16 %; MCH 32.7 pg (25.0-35.0); Mean Platelet Volume 7.5; Monocytes # (A) 0.8 k/uL (0-1.0); Monocytes % (A) 15 %; Neutrophils # (A) 3.6 k/uL (1.3-7.7); Neutrophils % (A) 67 %; RBC 3.17 m/uL (4.30-5.90); RDW 13.4 % (11.5-15.5); WBC 5.3 k/uL (3.8-10.6); WBC (Perox) 5.45
[2017-04-19] MEDS: IPRATROPIUM-ALBUTEROL 3 ML NEB INHALATION SCH ×2 (08:51→13:12)
[2017-04-19 08:52] LABS: ALT 21 U/L (21-72); AST 17 U/L (17-59); Alkaline Phosphatase 55 U/L (38-126); Anion Gap 8 mmol/L; Blood Urea Nitrogen 12 mg/dL (9-20); Carbon Dioxide 25 mmol/L (22-30); Chloride 103 mmol/L (98-107); Glucose 127 mg/dL (74-99); Magnesium 1.6 mg/dL (1.6-2.3); Non-African American GFR(MDRD) >60 (>60 ml/min/1.73 sqM); Potassium 4.5 mmol/L (3.5-5.1); Sodium 136 mmol/L (137-145); Total Bilirubin 0.8 mg/dL (0.2-1.3); Total Protein 5.6 g/dL (6.3-8.2)
[2017-04-19] MEDS: MENTHOL-ZINC OXIDE OINT 113 GM TUBE TOPICAL SCH (08:52)
--- NOTE | 2017-04-19 10:42 | P.PN ---
Subjective 04/17/17- This is an 82-year-old male being seen, examined and evaluated today. This patient came into the hospital after a syncopal episode at [facility] rehab facility which was most likely related to dehydration and intravascular volume depletion. He was given IV fluids and showed improvement. Patient is also noted to be using a sling to his left shoulder for a history of dislocation. Patient was at [facility] for rehabilitation. Patient has a chronic indwelling Ozuna catheter follows with urology and has operative culture for MRSA in the urine. Consult was made to our services for pulmonary nodule that was noted on the chest x-ray. The chest x-ray impression stated correlate for COPD. There is a right-sided pulmonary nodule in a CT of the chest is recommended. Also density in the lateral view anterior of the humerus may be related to soft tissue overlap also could be assessed with a computed tomography scan. Patient also has cardiology on consult. Added Doppler will be performed today. Patient is also scheduled to have an echo. Patient also has physical therapy/ occupational therapy for medical debility and left shoulder education. When of care is for the patient to return to [facility] at discharge. Upon examination the patient's resting up in bed on room air he denies any cough or congestion at this time. Patient states he does get short of breath on and off with exertion, of her breathing treatments to help with this. 04/18/17 examination patient's resting up in bed on room air. Patient states breathing treatments are beneficial to his shortness of breath. Patient did have a CT of the chest to follow-up on his abnormal chest x-ray from 2016. CT of the chest impression no acute process concerning lung nodule noted. Results were discussed with the patient. Patient also had a carotid ultrasound completed which revealed moderate atherosclerotic change bilaterally , right greater than the left with hemodynamically significant stenosis estimated 50-69% felt this present on the right. Further investigation with a CTA or MRA of the neck is advised. Cardiology is also on consult. Lab work was reviewed. 04/19/17 on examination the patient is resting up in bed on room air. Patient states he is feeling significantly better. Patient is looking forward to discharge back to [facility] rehab facility. Patient has been evaluated by cardiology as well and no further cardiac workup at this time. Patient denies any pain. No acute overnight events. Eyes any shortness of breath, cough or congestion. Objective - Vital Signs Vital signs: Vital Signs Temp 97.0 F L 04/19/17 07:00 Pulse 79 04/19/17 07:00 Resp 18 04/19/17 07:00 BP 100/55 04/19/17 07:00 Pulse Ox 96 04/19/17 07:00 Intake & Output 04/18/17 04/19/17 04/19/17 18:59 06:59 18:59 Intake Total 320 Output Total 350 1950 Balance -350 -1630 Intake: Oral 320 Output: Urine 350 1950 Other: Voiding Method Indwelling Catheter Indwelling Catheter Toilet # Voids 0 # Bowel Movements 0 - Exam GENERAL EXAM: Alert, active, comfortable in no apparent distress. HEAD: Normocephalic. EYES: Normal reaction of pupils, equal size. NOSE: Clear with pink turbinates. THROAT: No erythema or exudates. NECK: No masses, no JVD. CHEST: No chest wall deformity. LUNGS: Equal air entry with no crackles, wheeze, rhonchi or dullness. Bases diminished CVS: S1 and S2 normal with no audible mumurs, regular rhythm. ABDOMEN: No hepatosplenomegaly, normal bowel sounds, no guarding or rigidity. EXTREMITIES: No edema noted, pedal pulses palpable. Left shoulder limited range of motion and is an orthopedic sling. SKIN: No rashes CENTRAL NERVOUS SYSTEM: No focal deficits, tone is normal in all 4 extremities. - Labs CBC & Chem 7: 04/19/17 08:14 04/19/17 08:14 Labs: Abnormal Lab Results - Last 24 Hours (Table) 04/18/17 04/18/17 04/19/17 Range/Units 11:29 17:03 07:11 RBC (4.30-5.90) m/uL Hgb (13.0-17.5) gm/dL Hct (39.0-53.0) % Lymphocytes # (1.0-4.8) k/uL Sodium (137-145) mmol/L Glucose (74-99) mg/dL POC Glucose (mg/dL) 104 H 158 H 52 L (75-99) mg/dL Total Protein (6.3-8.2) g/dL Albumin (3.5-5.0) g/dL 04/19/17 04/19/17 Range/Units 08:14 08:14 RBC 3.17 L (4.30-5.90) m/uL Hgb 10.4 L (13.0-17.5) gm/dL Hct 30.4 L (39.0-53.0) % Lymphocytes # 0.9 L (1.0-4.8) k/uL Sodium 136 L (137-145) mmol/L Glucose 127 H (74-99) mg/dL POC Glucose (mg/dL) (75-99) mg/dL Total Protein 5.6 L (6.3-8.2) g/dL Albumin 3.2 L (3.5-5.0) g/dL Assessment and Plan Plan: Assessment Acute exacerbation of COPD Pulmonary nodule noted on chest x-ray, however CT reveals no nodule Catheter associated UTI present on admission Syncope most related to dehydration and intravascular depletion. Hypertension Acute kidney injury likely related to dehydration Anterior dislocation of the left shoulder Type 2 diabetes mellitus Mild intermittent asthma Chronic urinary retention Plan Patient can be cleared from pulmonary standpoint for discharge. Medications have been reviewed and will be continued as ordered. Results from the CT of the chest were discussed with the patient, no pulmonary nodule isn't seen on CT. Patient should still follow up with our services. Patient has COPD and on scheduled breathing treatments. Continue with IV antibiotics. Continue with pulmonary hygiene, coughing and deep breathing exercises, and supportive care. Supplemental oxygen to maintain oxygen saturations of 92% or better. Continue nebulizer treatments. GI and DVT prophylaxis. Continue PT OT. Patient had an echo those results are not readily available at this time. Patient's plan of care is to be discharged to [facility] rehab as previously. We will continue to monitor labs/results and adjust treatment as necessary. Further recommendations pending. I performed an examination of the patient and discussed their management with the nurse practitioner. I have reviewed the nurse practitioner's note and agree with the documented findings and plan of care.
[2017-04-19 12:23] LABS: Glucose,Whole Blood 162 mg/dL (75-99)
[2017-04-19] MEDS: FOLIC ACID 1 MG TAB PO SCH (12:30)
[2017-04-19] MEDS: MULTIVITAMINS, THERA 1 EACH TAB PO SCH (12:30)
[2017-04-19] MEDS: ACETAMINOPHEN TAB 500 MG TAB PO PRN (12:33)
--- NOTE | 2017-04-19 13:04 | P.DS ---
Providers Date of admission: 04/14/17 14:37 Expected date of discharge: 04/19/17 Attending physician: Dominga Anderson Consults: 04/17/17 14:00 Consult Physician Routine Consulting Provider: Papi Le Consult Reason/Comments: pulmonary nodule on CXR Do you want consulting provider notified?: Yes 04/17/17 14:01 Consult Physician Routine Consulting Provider: Agnes Doyle Consult Reason/Comments: syncope Do you want consulting provider notified?: Yes Primary care physician: [facility] Course: Diagnoses on discharge: 1. Syncope: most likely related to dehydration and intravascular depletion. Systolic blood pressure on presentation in the 70s and 80s. Patient was given IV fluid hydration. I would recheck orthostatic blood pressure. Twelve-lead EKG showed normal sinus rhythm. We will continue telemetry monitoring. Awaiting echo results 2. Essential hypertension, blood pressure on the lower side on presentation secondary to intravascular depletion. Patient is currently off of his diuretics which include the Lasix, Aldactone and hydrochlorothiazide. Blood pressure stable this morning at 106/58 3. Acute kidney injury likely related to dehydration and diuretics. Kidney function has improved with IV fluids. Continue to monitor 4. 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 Consult physical therapy. Dimyjao-phgzn-dvq zinc oxide ointment to apply twice a day to arm help with pain control. Continue [place]. 5. Type 2 diabetes mellitus, maintained on insulin. A1c 7.6. We will continue to monitor blood glucose closely. 6. Hypothyroidism 7. Mild intermittent asthma with no evidence of exacerbation 8. Chronic urinary retention with chronic indwelling Ozuna catheter following with urology as an outpatient 9. Catheter associated UTI with urine culture growing MRSA. given IV vancomycin during this admission. He will receive Zyvox 600 mg bid for 7 days after discharge. Hospital Course: Patient presented to the hospital after syncopal episode. Likely secondary to dehydration and intravascular volume depletion. He received IV fluids. And has shown improvement. Also he is complaining of left shoulder and arm pain. He has a known history of dislocation of that left shoulder. Arm is in sling. Patient had echocardiogram during this admission. Urine culture came back positive with MRSA. And he is started on IV vancomycin. He has a chronic indwelling Ozuna catheter. He is followed with urology. Catheter was inserted and [place] patient not sure how long ago. Catheter was replaced on 04/18/2017. Patient was told by urology that he needs to keep the catheter in for another month. Antibiotics were switched to Zyvox 600 mg bid for 7 days at the time of discharge. He will return to [facility] for Rehab. Patient Condition at Discharge: Fair Plan - Discharge Summary New Discharge Prescriptions: New Ipratropium-Albuterol Nebulize [Duoneb 0.5 mg-3 mg/3 ml Soln] 3 ml INHALATION RT-TID neb Linezolid [Zyvox] 600 mg PO Q12H #14 tab Menthol-Zinc Oxide Oint [Risamine Oint] 1 applic TOPICAL BID dose Continue Losartan Potassium 50 mg PO DAILY rOPINIRole HCL [Ropinirole HCl] 2 mg PO TID Insulin Glargine,Hum.rec.anlog [Lantus Solostar] 16 units SQ HS Levothyroxine Sodium [Synthroid] 25 mcg PO DAILY Meclizine [Antivert] 25 mg PO Q8H PRN PRN Reason: Vertigo Multivitamins, Thera [Multivitamin (formulary)] 1 tab PO DAILY Cholecalciferol [Vitamin D3] 1,000 unit PO DAILY Albuterol Inhaler [Ventolin Hfa Inhaler] 2 puff INHALATION RT-Q4H PRN PRN Reason: Shortness Of Breath Fesoterodine Fumarate [Toviaz] 4 mg PO DAILY Melatonin 20 mg PO HS Tamsulosin HCl [Flomax] 0.8 mg PO HS Furosemide [Lasix] 20 mg PO DAILY Folic Acid 1 mg PO DAILY Aspirin EC [Ecotrin Low Dose] 81 mg PO DAILY Acetaminophen Tab [Tylenol] 1,000 mg PO Q6HR PRN PRN Reason: Pain Acetaminophen Tab [Tylenol] 500 mg PO Q6H PRN MDD 6 TABS PRN Reason: Pain Bisacodyl [Dulcolax] 10 mg RECTAL DAILY PRN PRN Reason: Constipation HYDROcodone/APAP 5-325MG [[place] 5-325] 1 tab PO Q6H PRN PRN Reason: Pain Ibuprofen [Motrin] 200 mg PO DAILY PRN PRN Reason: SHOULDER PAIN Ibuprofen [Motrin] 400 mg PO TID INSULIN LISPRO (humaLOG) [humaLOG (formulary)] See Protocol SQ ACHS Magnesium Hydroxide [Milk of Magnesia] 2,400 mg PO DAILY PRN PRN Reason: Constipation Menthol [Biofreeze] 1 applic TOPICAL Q12H Na Phos,M-B/Na Phos,Di-Ba [Fleet Adult] 133 ml RECTAL DAILY PRN PRN Reason: Constipation Sennosides-Docusate Sodium [Senokot-S] 2 tab PO HS Vits A and D/White Pet/Lanolin [A and D Ointment] 1 applic TOPICAL BID Thiamine [Vitamin B-1] 100 mg PO DAILY Discontinued Spironolactone-Hctz 25-25Mg [Aldactazide 25-25Mg] 1 tab PO DAILY Discharge Medication List Insulin Glargine,Hum.rec.anlog [Lantus Solostar] 16 units SQ HS 08/24/14 [ History] Levothyroxine Sodium [Synthroid] 25 mcg PO DAILY 08/24/14 [History] Losartan Potassium 50 mg PO DAILY 08/24/14 [History] rOPINIRole HCL [Ropinirole HCl] 2 mg PO TID 08/24/14 [History] Albuterol Inhaler [Ventolin Hfa Inhaler] 2 puff INHALATION RT-Q4H PRN 02/17/17 [ History] Aspirin EC [Ecotrin Low Dose] 81 mg PO DAILY 02/17/17 [History] Cholecalciferol [Vitamin D3] 1,000 unit PO DAILY 02/17/17 [History] Fesoterodine Fumarate [Toviaz] 4 mg PO DAILY 02/17/17 [History] Folic Acid 1 mg PO DAILY 02/17/17 [History] Furosemide [Lasix] 20 mg PO DAILY 02/17/17 [History] Meclizine [Antivert] 25 mg PO Q8H PRN 02/17/17 [History] Melatonin 20 mg PO HS 02/17/17 [History] Multivitamins, Thera [Multivitamin (formulary)] 1 tab PO DAILY 02/17/17 [History ] Tamsulosin HCl [Flomax] 0.8 mg PO HS 02/17/17 [History] Acetaminophen Tab [Tylenol] 1,000 mg PO Q6HR PRN 04/14/17 [History] Acetaminophen Tab [Tylenol] 500 mg PO Q6H PRN MDD 6 TABS 04/14/17 [History] Bisacodyl [Dulcolax] 10 mg RECTAL DAILY PRN 04/14/17 [History] HYDROcodone/APAP 5-325MG [[place] 5-325] 1 tab PO Q6H PRN 04/14/17 [History] INSULIN LISPRO (humaLOG) [humaLOG (formulary)] See Protocol SQ ACHS 04/14/17 [ History] Ibuprofen [Motrin] 200 mg PO DAILY PRN 04/14/17 [History] Ibuprofen [Motrin] 400 mg PO TID 04/14/17 [History] Magnesium Hydroxide [Milk of Magnesia] 2,400 mg PO DAILY PRN 04/14/17 [History] Menthol [Biofreeze] 1 applic TOPICAL Q12H 04/14/17 [History] Na Phos,M-B/Na Phos,Di-Ba [Fleet Adult] 133 ml RECTAL DAILY PRN 04/14/17 [ History] Sennosides-Docusate Sodium [Senokot-S] 2 tab PO HS 04/14/17 [History] Thiamine [Vitamin B-1] 100 mg PO DAILY 04/14/17 [History] Vits A and D/White Pet/Lanolin [A and D Ointment] 1 applic TOPICAL BID 04/14/17 [History] Ipratropium-Albuterol Nebulize [Duoneb 0.5 mg-3 mg/3 ml Soln] 3 ml INHALATION RT -TID neb 04/19/17 [Rx] Linezolid [Zyvox] 600 mg PO Q12H #14 tab 04/19/17 [Rx] Menthol-Zinc Oxide Oint [Risamine Oint] 1 applic TOPICAL BID dose 04/19/17 [Rx] Follow up Appointment(s)/Referral(s): Adrian Romo, [NON-STAFF] - 1 Week Roma Butler MD [Primary Care Provider] - 1-2 days Papi Le MD [STAFF PHYSICIAN] - 1 Week Patient Instructions/Handouts: Coronary Artery Disease (DC), Fall Prevention for Older Adults (GEN) Activity/Diet/Wound Care/Special Instructions: Cardiac, diabetic diet. Discharge Disposition: TRANSFER TO SNF/ECF
[2017-04-19] MEDS ORDERED: VANCOMYCIN 1,000 MG in SODIUM CHLORIDE 0.9% 250 ML IVPB SCH (21:00)
--- NOTE | 2017-04-19 22:58 | PN ---
Mr. Feliciano is an 82-year-old male who presented with a pre-syncopal episode. He is doing quite well this morning. Denying any chest pain. He still has some discomfort in the left shoulder but no dizziness. No palpitations. No syncope. He continues to be at this time on albuterol, aspirin, Pepcid, folic acid, insulin, losartan 50 mg daily, magnesium, meclizine on a p.r.n. basis, Ropinirole, tamsulosin. PHYSICAL EXAMINATION: Blood pressure 100/50 with a heart rate of 70. LUNGS: Clear. HEART: Regular rate and rhythm. S1, S2. No S3. No rub. ABDOMEN: Soft, non-tender. EXTREMITIES: No edema. IMPRESSION: 1. Presyncope, orthostatic in origin. 2. Status post injury to the left shoulder. 3. History of hypertension. 4. Diabetes. RECOMMENDATIONS: From the cardiac standpoint, he is stable. No further cardiac workup will be needed. Will see him on an as-needed basis. Please feel free to call us for any questions. ESTEPHANIA
== END 2017-04-19 15:00 | DRG 699 ==
LOC: EC 11:03 → 3OBS 14:37 → OBSVTOIN 14:37 → 4MS4W 22:46 → 3OBS 04-15 07:07 → 4MS4W 04-16 08:19
PROVIDERS: ADMIT Internal Medicine; ATTEND Internal Medicine
DX: T83.518A Infection and inflammatory reaction due to other urinary catheter, initial encounter (principal); N17.9 Acute kidney failure, unspecified; J44.1 Chronic obstructive pulmonary disease with (acute) exacerbation; N39.0 Urinary tract infection, site not specified; E86.0 Dehydration; B95.62 Methicillin resistant Staphylococcus aureus infection as the cause of diseases classified elsewhere; E11.9 Type 2 diabetes mellitus without complications; I10 Essential (primary) hypertension; M19.91 Primary osteoarthritis, unspecified site; I95.1 Orthostatic hypotension; E03.9 Hypothyroidism, unspecified; J45.20 Mild intermittent asthma, uncomplicated; E78.5 Hyperlipidemia, unspecified; G25.81 Restless legs syndrome; N40.1 Benign prostatic hyperplasia with lower urinary tract symptoms; S43.015D Anterior dislocation of left humerus, subsequent encounter; R33.8 Other retention of urine; R91.1 Solitary pulmonary nodule; Z97.0 Presence of artificial eye; Z90.49 Acquired absence of other specified parts of digestive tract; Z87.891 Personal history of nicotine dependence; Z79.82 Long term (current) use of aspirin; Z79.4 Long term (current) use of insulin; Z79.899 Other long term (current) drug therapy; Z88.5 Allergy status to narcotic agent; Z88.8 Allergy status to other drugs, medicaments and biological substances; Y84.6 Urinary catheterization as the cause of abnormal reaction of the patient, or of later complication, without mention of misadventure at the time of the procedure
CPT/HCPCS: 36415; 36600; 71020; 71250; 80048; 80053; 80202; 81001; 82550; 82553; 82805; 83036; 83735; 84484; 85025; 85610; 85730; 87077; 87086; 87186; 93005; 93306; 93880; 96360; 99285

== ENCOUNTER 2018-11-29 17:47 | Inpatient (IN) | payer MEDICARE, OTHER ==
[2018-11-29] MEDS ORDERED: IPRATROPIUM-ALBUTEROL 3 ML NEB INHALATION STA (18:23)
[2018-11-29] MEDS ORDERED: SODIUM CHLORIDE 0.9% 500 ML 500 ML IV STA (18:23)
--- NOTE | 2018-11-29 18:28 | ED ---
General Adult HPI - General Stated complaint: ARIANA Time Seen by Provider: 11/29/18 18:17 Source: RN notes reviewed, old records reviewed - History of Present Illness Initial comments: 83-year-old male patient passed no history of type 2 diabetes, hypertension, hypothyroidism, asthma presents to ED with 1 week of waxing and waning productive cough and shortness of breath. Patient was evaluated yesterday by physician at [facility] reported that he had a chest x-ray which was clear however did not get the results of his blood work and urine. Patient family reports that he appears lethargic to them. Patient denies any other complaints. Patient denies chest pain, abdominal pain, nausea vomiting diarrhea , dysuria, fevers and chills. Systemic: Pt denies myalgia, fever/chills, rash. Pt denies weakness, night sweats, weight loss. Neuro: Pt denies headache, visual disturbances, syncope or pre-syncope. HEENT: Pt denies ocular discharge or irritation, otalgia, rhinorrhea, pharyngitis or notable lymphadenopathy. Cardiopulmonary: Pt denies chest pain, heart palpitations, dyspnea on exertion. Abdominal/GI: Pt denies abdominal pain, n/v/d. : Pt denies dysuria, burning w/ urination, frequency/urgency. Denies new onset urinary or bowel incontinence. MSK: Pt denies myalgia, loss of strength or function in extremities. Neuro: Pt denies new onset weakness, paresthesias. - Related Data Home Medications Medication Instructions Recorded Confirmed Insulin Glargine,Hum.rec.anlog 25 units SQ HS 08/24/14 11/29/18 [Lantus Solostar] Levothyroxine Sodium [Synthroid] 25 mcg PO DAILY 08/24/14 11/29/18 Losartan Potassium 50 mg PO DAILY 08/24/14 11/29/18 rOPINIRole HCL [Ropinirole HCl] 2 mg PO HS 08/24/14 11/29/18 Albuterol Inhaler [Ventolin Hfa 2 puff INHALATION RT-Q4H PRN 02/17/17 11/29/18 Inhaler] Aspirin EC [Ecotrin Low Dose] 81 mg PO DAILY@1700 02/17/17 11/29/18 Cholecalciferol [Vitamin D3] 1,000 unit PO DAILY@1700 02/17/17 11/29/18 Folic Acid 1 mg PO DAILY@1700 02/17/17 11/29/18 Melatonin 20 mg PO HS 02/17/17 11/29/18 Multivitamins, Thera [Multivitamin 1 tab PO DAILY@169902/17/17 11/29/18 (formulary)] Tamsulosin HCl [Flomax] 0.8 mg PO HS@2100 02/17/17 11/29/18 Acetaminophen Tab [Tylenol] 500 - 1,000 mg PO Q6H PRN 04/14/17 11/29/18 Bisacodyl [Dulcolax] 10 mg RECTAL DAILY PRN 04/14/17 11/29/18 HYDROcodone/APAP 5-325MG [[place] 1 tab PO Q6H PRN 04/14/17 11/29/18 5-325] INSULIN LISPRO (humaLOG) [humaLOG] See Protocol SQ ACHS 04/14/17 11/29/18 Ibuprofen [Motrin] 200 mg PO DAILY PRN 04/14/17 11/29/18 Magnesium Hydroxide [Milk of 2,400 mg PO DAILY PRN 04/14/17 11/29/18 Magnesia] Menthol [Biofreeze] 1 applic TOPICAL BID 04/14/17 11/29/18 Sennosides-Docusate Sodium 2 tab PO HS 04/14/17 11/29/18 [Senokot-S] Thiamine [Vitamin B-1] 100 mg PO DAILY@169904/14/17 11/29/18 Benzonatate [Tessalon Perles] 100 - 200 mg PO Q6H PRN 11/29/18 11/29/18 Docusate [Colace] 100 mg PO BID PRN 11/29/18 11/29/18 Ferrous Sulfate [Feosol] 325 mg PO DAILY@169911/29/18 11/29/18 Finasteride [Proscar] 5 mg PO DAILY 11/29/18 11/29/18 Furosemide [Lasix] 40 mg PO BID@0800,1400 11/29/18 11/29/18 Ibuprofen [Motrin] 400 mg PO TID@0800,1400,2100 11/29/18 11/29/18 Menthol [Biofreeze] 1 applic TOPICAL BID PRN 11/29/18 11/29/18 Mirtazapine [Remeron] 15 mg PO HS 11/29/18 11/29/18 Na Phos,M-B/Na Phos,Di-Ba [Fleet 133 ml RECTAL ONCE PRN 11/29/18 11/29/18 Adult] Vit C/E/Zn/Coppr/Lutein/Zeaxan 1 cap PO DAILY@1700 11/29/18 11/29/18 [Preservision Areds 2 Softgel] clonazePAM [KlonoPIN] 0.5 mg PO BID@0800,1700 11/29/18 11/29/18 Allergies Allergy/AdvReac Type Severity Reaction Status Date / Time SALONI Inhibitors Allergy Unknown Unknown Verified 11/29/18 17:55 enalaprilat [From Vasotec] Allergy Unknown Unknown Verified 11/29/18 17:55 tramadol AdvReac Hallucinati Verified 11/29/18 17:55 ons ANTICOLINERGIC MEDS Allergy Unknown Uncoded 11/29/18 17:55 Review of Systems ROS Statement: Those systems with pertinent positive or pertinent negative responses have been documented in the HPI. ROS Other: All systems not noted in ROS Statement are negative. Past Medical History Past Medical History: Asthma, Diabetes Mellitus, Eye Disorder, Hyperlipidemia, Hypertension, Prostate Disorder, Thyroid Disorder Additional Past Medical History / Comment(s): Recent UTI with ABX, fell 02/18/17 with L shoulder dislocation with surgery, IDDM type II, hypothyroid, generalized arthritis, restless leg syndrome, BPH, occasional vertigo, L eye muytol-vxushiajjcp-uopny glass eye, mac degeneration R eye-gets injections. History of Any Multi-Drug Resistant Organisms: MRSA Date of last positivie culture/infection: 04/16/17 MDRO Source:: urine Past Surgical History: Cholecystectomy, Orthopedic Surgery Additional Past Surgical History / Comment(s): 02/18/17 closed reduction L shoulder, 2013 Open cholecystectomy, colonoscopies x 3, L eye numerous surgeries and eventual enucleation. Past Anesthesia/Blood Transfusion Reactions: No Reported Reaction Smoking Status: Former smoker - Past Family History Father Family Medical History: No Reported History Mother Family Medical History: Cancer Additional Family Medical History / Comment(s): Mother of metastatic cancer at the age of 54yrs. old. General Exam - General Exam Comments Initial Comments: Constitutional: NAD, AOX3, Pt has pleasant affect. HEENT: NC/AT, trachea midline, neck supple, no lymphadenopathy. Posterior pharynx non erythematous, without exudates. External ears appear normal, without discharge. Mucous membranes moist. Eyes PERRLA, EOM intact. There is no scleral icterus. No pallor noted. Cardiopulmonary: RRR, no murmurs, rubs or gallops, no JVD noted. Mild wheezing in anterior hayes, resolved after breathing treatment. Lungs CTAB after breathing tx. No peripheral edema. Abdominal exam: Abdomen soft and non-distended. Abdomen non-tender to palpation in all 4 quadrants. Bowel sounds active in LLQ. No hepatosplenomegaly. No ecchymosis Neuro: CN II-XII intact. No nuchal rigidity. MSK: No posterior calf tenderness bilaterally, homans sign negative bilaterally. Posterior tibialis and radial pulse +2 bilaterally. Sensation intact in upper and lower extremities. Full active ROM in upper and lower extremities, 5/5 strength. Course Vital Signs 11/29/18 11/29/18 11/29/18 18:28 18:43 18:52 Temperature 98.1 F Pulse Rate 80 84 81 Respiratory 20 Rate Blood Pressure 99/55 O2 Sat by Pulse 93 L Oximetry 11/29/18 11/29/18 11/29/18 19:24 20:03 20:30 Temperature Pulse Rate 86 79 79 Respiratory 15 9 L 10 L Rate Blood Pressure 100/42 96/49 96/49 O2 Sat by Pulse 97 95 Oximetry 11/29/18 11/29/18 11/29/18 21:00 21:30 23:23 Temperature Pulse Rate 79 74 Respiratory 17 18 Rate Blood Pressure 97/59 94/58 121/53 O2 Sat by Pulse 99 97 Oximetry Medical Decision Making - Medical Decision Making 83-year-old male patient with pertinent past medical history of type 2 diabetes , hypertension, hypothyroidism, asthma presents to ED with 1 week of waxing and waning productive cough and shortness of breath. Patient was evaluated yesterday by physician at [facility] reported that he had a chest x-ray which was clear however did not get the results of his blood work and urine. Patient family reports that he appears lethargic to them. Patient denies any other complaints. Pt VSS, afebrile. Physical exam displayed: mild wheezing in anterior hayes, resolved after breathing treatment. Lungs CTAB after breathing tx. Neuro exam wnl, pt aox3. Laboratory investigations revealed: nonimpressive CBC. Coagulation studies wnl. D dimer mildly elevated at 0.8. CMP revealed Cr. of 1.92, increase from baseline of 1.4. Glucose moderately elevated of 190. BNP wnl. Troponin negative. UA negative. Influenza negative. EKG displayed new right bundle branch block. CXR revealed scarring or subsegmental atelectasis at left lung base. V/Q scan displayed no findings to suggest pulmonary embolism. CT of brain revealed no acute findings. Pt admitted to Dr. Leslie for asthma exacerbation. Case discussed with Dr. Edouard and Dr. Cerda. - Lab Data Result diagrams: 11/29/18 18:05 11/29/18 18:05 Lab Results 11/29/18 11/29/18 11/29/18 Range/Units 18:05 18:05 18:05 WBC 3.2 L (3.8-10.6) k/uL RBC 4.12 L (4.30-5.90) m/uL Hgb 13.4 (13.0-17.5) gm/dL Hct 40.9 (39.0-53.0) % MCV 99.3 (80.0-100.0) fL MCH 32.6 (25.0-35.0) pg MCHC 32.8 (31.0-37.0) g/dL RDW 13.3 (11.5-15.5) % Plt Count 97 L (150-450) k/uL Neutrophils % 58 % Lymphocytes % 23 % Monocytes % 15 % Eosinophils % 0 % Basophils % 1 % Neutrophils # 1.8 (1.3-7.7) k/uL Lymphocytes # 0.7 L (1.0-4.8) k/uL Monocytes # 0.5 (0-1.0) k/uL Eosinophils # 0.0 (0-0.7) k/uL Basophils # 0.0 (0-0.2) k/uL Manual Slide Review Performed Large Platelets Present PT 9.9 (9.0-12.0) sec INR 0.9 (<1.2) APTT 23.4 (22.0-30.0) sec D-Dimer (<0.60) mg/L FEU Sodium 136 L (137-145) mmol/L Potassium 4.1 (3.5-5.1) mmol/L Chloride 99 (98-107) mmol/L Carbon Dioxide 28 (22-30) mmol/L Anion Gap 9 mmol/L BUN 54 H (9-20) mg/dL Creatinine 1.92 H (0.66-1.25) mg/dL Est GFR (CKD-EPI)AfAm 37 (>60 ml/min/1.73 sqM) Est GFR (CKD-EPI)NonAf 32 (>60 ml/min/1.73 sqM) Glucose 193 H (74-99) mg/dL POC Glucose (mg/dL) (75-99) mg/dL POC Glu Parks And Re[employer] Manager ID Plasma Lactic Acid Ismael (0.7-2.0) mmol/L Calcium 8.7 (8.4-10.2) mg/dL Magnesium (1.6-2.3) mg/dL Total Bilirubin 0.8 (0.2-1.3) mg/dL AST 22 (17-59) U/L ALT 24 (21-72) U/L Alkaline Phosphatase 68 (38-126) U/L Troponin I (0.000-0.034) ng/mL NT-Pro-B Natriuret Pep pg/mL Total Protein 6.1 L (6.3-8.2) g/dL Albumin 3.6 (3.5-5.0) g/dL Urine Color Urine Appearance (Clear) Urine pH (5.0-8.0) Ur Specific [place] (1.001-1.035) Urine Protein (Negative) Urine Glucose (UA) (Negative) Urine Ketones (Negative) Urine Blood (Negative) Urine Nitrite (Negative) Urine Bilirubin (Negative) Urine Urobilinogen (<2.0) mg/dL Ur Leukocyte Esterase (Negative) Influenza Type A RNA (Not Detectd) Influenza Type B (PCR) (Not Detectd) 11/29/18 11/29/18 11/29/18 Range/Units 18:05 18:05 18:05 WBC (3.8-10.6) k/uL RBC (4.30-5.90) m/uL Hgb (13.0-17.5) gm/dL Hct (39.0-53.0) % MCV (80.0-100.0) fL MCH (25.0-35.0) pg MCHC (31.0-37.0) g/dL RDW (11.5-15.5) % Plt Count (150-450) k/uL Neutrophils % % Lymphocytes % % Monocytes % % Eosinophils % % Basophils % % Neutrophils # (1.3-7.7) k/uL Lymphocytes # (1.0-4.8) k/uL Monocytes # (0-1.0) k/uL Eosinophils # (0-0.7) k/uL Basophils # (0-0.2) k/uL Manual Slide Review Large Platelets PT (9.0-12.0) sec INR (<1.2) APTT (22.0-30.0) sec D-Dimer (<0.60) mg/L FEU Sodium (137-145) mmol/L Potassium (3.5-5.1) mmol/L Chloride (98-107) mmol/L Carbon Dioxide (22-30) mmol/L Anion Gap mmol/L BUN (9-20) mg/dL Creatinine (0.66-1.25) mg/dL Est GFR (CKD-EPI)AfAm (>60 ml/min/1.73 sqM) Est GFR (CKD-EPI)NonAf (>60 ml/min/1.73 sqM) Glucose (74-99) mg/dL POC Glucose (mg/dL) (75-99) mg/dL POC Glu Parks And Recreation Manager ID Plasma Lactic Acid Ismael (0.7-2.0) mmol/L Calcium (8.4-10.2) mg/dL Magnesium 2.1 (1.6-2.3) mg/dL Total Bilirubin (0.2-1.3) mg/dL AST (17-59) U/L ALT (21-72) U/L Alkaline Phosphatase (38-126) U/L Troponin I <0.012 (0.000-0.034) ng/mL NT-Pro-B Natriuret Pep 205 pg/mL Total Protein (6.3-8.2) g/dL Albumin (3.5-5.0) g/dL Urine Color Urine Appearance (Clear) Urine pH (5.0-8.0) Ur Specific [place] (1.001-1.035) Urine Protein (Negative) Urine Glucose (UA) (Negative) Urine Ketones (Negative) Urine Blood (Negative) Urine Nitrite (Negative) Urine Bilirubin (Negative) Urine Urobilinogen (<2.0) mg/dL Ur Leukocyte Esterase (Negative) Influenza Type A RNA (Not Detectd) Influenza Type B (PCR) (Not Detectd) 11/29/18 11/29/18 11/29/18 Range/Units 18:05 18:43 19:28 WBC (3.8-10.6) k/uL RBC (4.30-5.90) m/uL Hgb (13.0-17.5) gm/dL Hct (39.0-53.0) % MCV (80.0-100.0) fL MCH (25.0-35.0) pg MCHC (31.0-37.0) g/dL RDW (11.5-15.5) % Plt Count (150-450) k/uL Neutrophils % % Lymphocytes % % Monocytes % % Eosinophils % % Basophils % % Neutrophils # (1.3-7.7) k/uL Lymphocytes # (1.0-4.8) k/uL Monocytes # (0-1.0) k/uL Eosinophils # (0-0.7) k/uL Basophils # (0-0.2) k/uL Manual Slide Review Large Platelets PT (9.0-12.0) sec INR (<1.2) APTT (22.0-30.0) sec D-Dimer (<0.60) mg/L FEU Sodium (137-145) mmol/L Potassium (3.5-5.1) mmol/L Chloride (98-107) mmol/L Carbon Dioxide (22-30) mmol/L Anion Gap mmol/L BUN (9-20) mg/dL Creatinine (0.66-1.25) mg/dL Est GFR (CKD-EPI)AfAm (>60 ml/min/1.73 sqM) Est GFR (CKD-EPI)NonAf (>60 ml/min/1.73 sqM) Glucose (74-99) mg/dL POC Glucose (mg/dL) 190 H (75-99) mg/dL POC Glu Parks And Recreation Manager ID Arash, Leydi Plasma Lactic Acid Ismael 1.5 (0.7-2.0) mmol/L Calcium (8.4-10.2) mg/dL Magnesium (1.6-2.3) mg/dL Total Bilirubin (0.2-1.3) mg/dL AST (17-59) U/L ALT (21-72) U/L Alkaline Phosphatase (38-126) U/L Troponin I (0.000-0.034) ng/mL NT-Pro-B Natriuret Pep pg/mL Total Protein (6.3-8.2) g/dL Albumin (3.5-5.0) g/dL Urine Color Yellow Urine Appearance Clear (Clear) Urine pH 5.0 (5.0-8.0) Ur Specific [place] 1.007 (1.001-1.035) Urine Protein Negative (Negative) Urine Glucose (UA) Negative (Negative) Urine Ketones Negative (Negative) Urine Blood Negative (Negative) Urine Nitrite Negative (Negative) Urine Bilirubin Negative (Negative) Urine Urobilinogen <2.0 (<2.0) mg/dL Ur Leukocyte Esterase Negative (Negative) Influenza Type A RNA (Not Detectd) Influenza Type B (PCR) (Not Detectd) 11/29/18 11/29/18 Range/Units 19:36 20:20 WBC (3.8-10.6) k/uL RBC (4.30-5.90) m/uL Hgb (13.0-17.5) gm/dL Hct (39.0-53.0) % MCV (80.0-100.0) fL MCH (25.0-35.0) pg MCHC (31.0-37.0) g/dL RDW (11.5-15.5) % Plt Count (150-450) k/uL Neutrophils % % Lymphocytes % % Monocytes % % Eosinophils % % Basophils % % Neutrophils # (1.3-7.7) k/uL Lymphocytes # (1.0-4.8) k/uL Monocytes # (0-1.0) k/uL Eosinophils # (0-0.7) k/uL Basophils # (0-0.2) k/uL Manual Slide Review Large Platelets PT (9.0-12.0) sec INR (<1.2) APTT (22.0-30.0) sec D-Dimer 0.81 H (<0.60) mg/L FEU Sodium (137-145) mmol/L Potassium (3.5-5.1) mmol/L Chloride (98-107) mmol/L Carbon Dioxide (22-30) mmol/L Anion Gap mmol/L BUN (9-20) mg/dL Creatinine (0.66-1.25) mg/dL Est GFR (CKD-EPI)AfAm (>60 ml/min/1.73 sqM) Est GFR (CKD-EPI)NonAf (>60 ml/min/1.73 sqM) Glucose (74-99) mg/dL POC Glucose (mg/dL) (75-99) mg/dL POC Glu Parks And Re[employer] Manager ID Plasma Lactic Acid Ismael (0.7-2.0) mmol/L Calcium (8.4-10.2) mg/dL Magnesium (1.6-2.3) mg/dL Total Bilirubin (0.2-1.3) mg/dL AST (17-59) U/L ALT (21-72) U/L Alkaline Phosphatase (38-126) U/L Troponin I (0.000-0.034) ng/mL NT-Pro-B Natriuret Pep pg/mL Total Protein (6.3-8.2) g/dL Albumin (3.5-5.0) g/dL Urine Color Urine Appearance (Clear) Urine pH (5.0-8.0) Ur Specific [place] (1.001-1.035) Urine Protein (Negative) Urine Glucose (UA) (Negative) Urine Ketones (Negative) Urine Blood (Negative) Urine Nitrite (Negative) Urine Bilirubin (Negative) Urine Urobilinogen (<2.0) mg/dL Ur Leukocyte Esterase (Negative) Influenza Type A RNA Not Detected (Not Detectd) Influenza Type B (PCR) Not Detected (Not Detectd) - EKG Data -: EKG Interpreted by Me (and dr edouard) EKG Comments: 1) ventricular rate 86, GA interval 200, QRS 152, QT/QTC 414/495. Normal sinus rhythm, right bundle-branch block, left anterior fascicular block. 2) ventricular rate 86, GA interval 224, QRS 156, QT/QTc 400/478. Sinus rhythm with first-degree AV block. Right bundle branch block. Left anterior fascicular block. Disposition Clinical Impression: Asthma exacerbation Disposition: ADMITTED IP TO THIS HOSP Condition: Serious Is patient prescribed a controlled substance at d/c from ED?: No
[2018-11-29 18:42] LABS: Basophils % (A) 1 %; Eosinophils % (A) 0 %; HCT 40.9 % (39.0-53.0); HGB 13.4 gm/dL (13.0-17.5); Lymphocytes # (A) 0.7 k/uL (1.0-4.8); Lymphocytes % (A) 23 %; MCH 32.6 pg (25.0-35.0); MCHC 32.8 g/dL (31.0-37.0); MCV 99.3 fL (80.0-100.0); Mean Platelet Volume 7.7; Monocytes # (A) 0.5 k/uL (0-1.0); Monocytes % (A) 15 %; Neutrophils # (A) 1.8 k/uL (1.3-7.7); Neutrophils % (A) 58 %; RBC 4.12 m/uL (4.30-5.90); RDW 13.3 % (11.5-15.5); WBC 3.2 k/uL (3.8-10.6)
[2018-11-29 18:48] LABS: INR 0.9 (<1.2); Partial Thromboplastin Time 23.4 sec (22.0-30.0); Prothrombin Time 9.9 sec (9.0-12.0)
[2018-11-29 18:52] LABS: Glucose,Whole Blood 190 mg/dL (75-99)
[2018-11-29 18:55] LABS: Large Platelets Present; Platelet Count 97 k/uL (150-450)
[2018-11-29 18:58] LABS: Albumin 3.6 g/dL (3.5-5.0); Calcium 8.7 mg/dL (8.4-10.2); Potassium 4.1 mmol/L (3.5-5.1); Total Bilirubin 0.8 mg/dL (0.2-1.3); Total Protein 6.1 g/dL (6.3-8.2)
[2018-11-29] MEDS ORDERED: SODIUM CHLORIDE 0.9% 1,000 ML IV STA ×2 (19:18→23:09)
[2018-11-29 19:33] LABS: Appearance,Urine Clear (Clear); Bilirubin,Urine Negative (Negative); Blood,Urine Negative (Negative); Color,Urine Yellow; Glucose,Urine (UA) Negative (Negative); Ketones,Urine Negative (Negative); Leukocyte Esterase,Urine Negative (Negative); Nitrite,Urine Negative (Negative); Protein,Urine Negative (Negative); Specific Gravity,Urine 1.007 (1.001-1.035); Urobilinogen,Urine <2.0 mg/dL (<2.0)
--- NOTE | 2018-11-29 19:51 | XR ---
EXAMINATION TYPE: XR chest 2V DATE OF EXAM: 11/29/2018 COMPARISON: 04/14/2017 HISTORY: Difficulty breathing TECHNIQUE: Frontal and lateral views of the chest are obtained. FINDINGS: There is no heart failure nor confluent pneumonic infiltrate. There is some linear density at the left lung base. There are no hilar masses. There are chest leads. Bony thorax is intact. IMPRESSION: Scarring or subsegmental atelectasis at the left lung base. This appears new compared to old exam. No heart failure.
[2018-11-29] MEDS ORDERED: methylPREDNISolone SOD SUCCI 125 MG/2 ML VIAL IV STA (20:16)
[2018-11-29] MEDS ORDERED: HEPARIN SOD,PORK IN 0.45% NACL 25,000 UNIT in 0.45% NACL 1 250ML.BAG IV SCH (20:45)
[2018-11-29] MEDS ORDERED: HEPARIN SODIUM,PORCINE 5,000 UNIT/ML 1 ML VIAL IV PRN (20:45)
[2018-11-29] MEDS ORDERED: HEPARIN SODIUM,PORCINE 10,000 UNIT/ML 1 ML VIAL IV ONE (20:45)
[2018-11-29] MEDS ORDERED: ACETAMINOPHEN TAB 325 MG TAB PO PRN (20:49)
[2018-11-29] MEDS ORDERED: NALOXONE 0.4 MG/ML 1 ML VIAL IV PRN (20:49)
[2018-11-29] MEDS ORDERED: IPRATROPIUM-ALBUTEROL 3 ML NEB INHALATION PRN (20:56)
[2018-11-29] MEDS ORDERED: MORPHINE SULFATE 4 MG/ML SYRINGE IV STA (21:24)
--- NOTE | 2018-11-29 22:38 | NM ---
EXAM: NM Lung Perfusion and Ventilation Scan CLINICAL HISTORY: Shortness of breath TECHNIQUE: Nuclear Medicine ventilation and perfusion images of the lungs were obtained in multiple projections following radiopharmaceutical inhalation followed by injection of Tc99m MAA. COMPARISON: Chest x-ray dated 11/29/2018 FINDINGS: Ventilation: Unremarkable. No ventilation defects. Perfusion: Unremarkable. No perfusion defects. IMPRESSION: No findings to suggest pulmonary embolism.
--- NOTE | 2018-11-29 23:19 | CT ---
EXAM: CT Head Without Intravenous Contrast CLINICAL HISTORY: Pain TECHNIQUE: Axial computed tomography images of the head/brain without intravenous contrast. CTDI is 0.085, 0.085, 49.1 mGy and DLP is 1142.4 mGy-cm. This CT exam was performed using one or more of the following dose reduction techniques: automated exposure control, adjustment of the mA and/or kV according to patient size, and/or use of iterative reconstruction technique. COMPARISON: No relevant prior studies available. FINDINGS: Brain: No acute infarct, hemorrhage, mass or edema. No significant white matter disease. Ventricles: Unremarkable. No ventriculomegaly. Bones/joints: Moderate mucosal thickening in the paranasal sinuses with reactive hyperostosis of the left maxillary antrum suggesting chronic sinusitis. No acute fracture. Soft tissues: Unremarkable. Sinuses: See above. Mastoid air cells: Unremarkable as visualized. No mastoid effusion. Orbits: Post surgical changes within the left globe. IMPRESSION: No acute findings.
[2018-11-29] MEDS ORDERED: SODIUM CHLORIDE 0.9% 500 ML 500 ML IV ONE (23:51)
[2018-11-30] MEDS: SODIUM CHLORIDE 0.9% 1,000 ML IV SCH ×2 (01:14→22:09)
[2018-11-30 08:52] LABS: Basophils % (A) 0 %; Eosinophils % (A) 0 %; HCT 34.7 % (39.0-53.0); HGB 10.6 gm/dL (13.0-17.5); Hypochromasia Slight; Lymphocytes # (A) 0.3 k/uL (1.0-4.8); Lymphocytes % (A) 5 %; MCH 31.5 pg (25.0-35.0); MCHC 30.5 g/dL (31.0-37.0); MCV 103.2 fL (80.0-100.0); Macrocytosis Slight; Monocytes # (A) 0.1 k/uL (0-1.0); Monocytes % (A) 2 %; Neutrophils # (A) 4.9 k/uL (1.3-7.7); Neutrophils % (A) 93 %; Platelet Count 135 k/uL (150-450); RBC 3.37 m/uL (4.30-5.90); RDW 13.2 % (11.5-15.5); WBC 5.3 k/uL (3.8-10.6)
[2018-11-30] MEDS ORDERED: BISACODYL 10 MG SUPP RECTAL PRN (09:42)
[2018-11-30] MEDS ORDERED: NA PHOS,M-B/NA PHOS,DI-BA 133 ML ENEMA RECTAL PRN (09:42)
[2018-11-30] MEDS ORDERED: HYDROcodone/APAP 5-325MG 1 EACH TAB PO PRN (09:42)
[2018-11-30] MEDS ORDERED: BENZONATATE 100 MG CAP PO PRN (09:42)
[2018-11-30] MEDS ORDERED: MAGNESIUM HYDROXIDE 2,400 MG/10 ML CUP PO PRN (09:42)
[2018-11-30] MEDS ORDERED: ALBUTEROL NEBULIZED 2.5 MG/3 ML INHALATION PRN (09:42)
[2018-11-30] MEDS ORDERED: DOCUSATE 100 MG CAP PO PRN (09:42)
[2018-11-30] MEDS ORDERED: METHYL SALICYLATE/MENTHOL CREAM 5 OZ TOPICAL PRN (09:42)
--- NOTE | 2018-11-30 10:24 | P.HPIM ---
History of Present Illness H&P Date: 11/30/18 Chief Complaint: Severe shortness of breath, altered mental status, possible PE , right-sided 83-year-old male with known from [facility] for the last 2 years with past medical history of type 2 diabetes on insulin, asthma/COPD, chronic kidney disease, hypothyroidism and BPH who was in the hospital last time in 2017 for fracture shoulder. Patient found in his bed on 11/29/2018 not feeling well, had mild altered mental status, more congested with worsening shortness of breath with quiet hypoxia as well. Patient was started on O2 some updraft treatment and expectorant with no help ended up coming to the emergency department at [facility] were was seen and evaluated with higher suspicion for pulmonary embolism his d-dimer was elevated his creatinine was over 1.8 not been able to do CTA patient also had workup for altered mental status with chest x-ray showed questionable left infiltrate in the right side his white blood cell was mildly elevated patient had negative urine test with CAT scan of the brain shows small vessel disease only with no acute abnormality consistent with bleed or stroke. Review of Systems CONSTITUTIONAL: Well-developed no acute respiratory distress. Mild cough wheezes EYES: No icterus sclerae, no conjunctivitis. EARS, NOSE, MOUTH, THROAT, and FACE: No sore throat, lymphadenopathy, carotid bruits or deformity. RESPIRATORY: Mild shortness of breath cough wheezes CARDIOVASCULAR: No CP, Palpitation, PND, Orthopnea, or angina. GASTROINTESTINAL: No Abd pain, Nausea or vomiting, no Diarrhea or constipation, No GI Bleed, no distention or masses. GENITOURINARY: Negative for Hematuria or UTI, no kidney stones. INTEGUMENT/BREAST: Negative for any muscular injury with mild osteoarthritis.. HEMATOLOGIC/LYMPHATIC: Negative for bleed or purpura. MUSCULOSKELTAL: Negative for Myalgia or arthralgia. NEURLOGICAL: Mild out or mental status but still able to move all his 4 extremities. BEHAVIORAL/PSYCH: Negative. ENDOCRINE: Negative. Past Medical History Past Medical History: Asthma, Diabetes Mellitus, Eye Disorder, Hyperlipidemia, Hypertension, Prostate Disorder, Thyroid Disorder Additional Past Medical History / Comment(s): Recent UTI with ABX, fell 02/18/17 with L shoulder dislocation with surgery, IDDM type II, hypothyroid, generalized arthritis, restless leg syndrome, BPH, occasional vertigo, L eye zrrioe-ralkoqrkpqz-cpbti glass eye, mac degeneration R eye-gets injections. History of Any Multi-Drug Resistant Organisms: MRSA Date of last positivie culture/infection: 04/16/17 MDRO Source:: urine Past Surgical History: Cholecystectomy, Orthopedic Surgery Additional Past Surgical History / Comment(s): 02/18/17 closed reduction L shoulder, 2014 Open cholecystectomy, colonoscopies x 3, L eye numerous surgeries and eventual enucleation. Past Anesthesia/Blood Transfusion Reactions: No Reported Reaction Smoking Status: Former smoker - Past Family History Father Family Medical History: No Reported History Mother Family Medical History: Cancer Additional Family Medical History / Comment(s): Mother of metastatic cancer at the age of 54yrs. old. Medications and Allergies Home Medications Medication Instructions Recorded Confirmed Type Insulin Glargine,Hum.rec.anlog 25 units SQ HS 08/24/14 11/29/18 History [Lantus Solostar] Levothyroxine Sodium [Synthroid] 25 mcg PO DAILY 08/24/14 11/29/18 History Losartan Potassium 50 mg PO DAILY 08/24/14 11/29/18 History rOPINIRole HCL [Ropinirole HCl] 2 mg PO HS 08/24/14 11/29/18 History Albuterol Inhaler [Ventolin Hfa 2 puff INHALATION RT-Q4H PRN 02/17/17 11/29/18 History Inhaler] Aspirin EC [Ecotrin Low Dose] 81 mg PO DAILY@169902/17/17 11/29/18 History Cholecalciferol [Vitamin D3] 1,000 unit PO DAILY@169902/17/17 11/29/18 History Folic Acid 1 mg PO DAILY@169902/17/17 11/29/18 History Melatonin 20 mg PO HS 02/17/17 11/29/18 History Multivitamins, Thera [Multivitamin 1 tab PO DAILY@169902/17/17 11/29/18 History (formulary)] Tamsulosin HCl [Flomax] 0.8 mg PO HS@2100 02/17/17 11/29/18 History Acetaminophen Tab [Tylenol] 500 - 1,000 mg PO Q6H PRN 04/14/17 11/29/18 History Bisacodyl [Dulcolax] 10 mg RECTAL DAILY PRN 04/14/17 11/29/18 History HYDROcodone/APAP 5-325MG [[place] 1 tab PO Q6H PRN 04/14/17 11/29/18 History 5-325] INSULIN LISPRO (humaLOG) [humaLOG] See Protocol SQ ACHS 04/14/17 11/29/18 History Ibuprofen [Motrin] 200 mg PO DAILY PRN 04/14/17 11/29/18 History Magnesium Hydroxide [Milk of 2,400 mg PO DAILY PRN 04/14/17 11/29/18 History Magnesia] Menthol [Biofreeze] 1 applic TOPICAL BID 04/14/17 11/29/18 History Sennosides-Docusate Sodium 2 tab PO HS 04/14/17 11/29/18 History [Senokot-S] Thiamine [Vitamin B-1] 100 mg PO DAILY@1700 04/14/17 11/29/18 History Benzonatate [Tessalon Perles] 100 - 200 mg PO Q6H PRN 11/29/18 11/29/18 History Docusate [Colace] 100 mg PO BID PRN 11/29/18 11/29/18 History Ferrous Sulfate [Feosol] 325 mg PO DAILY@1700 11/29/18 11/29/18 History Finasteride [Proscar] 5 mg PO DAILY 11/29/18 11/29/18 History Furosemide [Lasix] 40 mg PO BID@0800,1400 11/29/18 11/29/18 History Ibuprofen [Motrin] 400 mg PO TID@0800,1400,2100 11/29/18 11/29/18 History Menthol [Biofreeze] 1 applic TOPICAL BID PRN 11/29/18 11/29/18 History Mirtazapine [Remeron] 15 mg PO HS 11/29/18 11/29/18 History Na Phos,M-B/Na Phos,Di-Ba [Fleet 133 ml RECTAL ONCE PRN 11/29/18 11/29/18 History Adult] Vit C/E/Zn/Coppr/Lutein/Zeaxan 1 cap PO DAILY@1700 11/29/18 11/29/18 History [Preservision Areds 2 Softgel] clonazePAM [KlonoPIN] 0.5 mg PO BID@0800,1700 11/29/18 11/29/18 History Allergies Allergy/AdvReac Type Severity Reaction Status Date / Time SALONI Inhibitors Allergy Unknown Unknown Verified 11/29/18 17:55 enalaprilat [From Vasotec] Allergy Unknown Unknown Verified 11/29/18 17:55 tramadol AdvReac Hallucinati Verified 11/29/18 17:55 ons ANTICOLINERGIC MEDS Allergy Unknown Uncoded 11/29/18 17:55 Physical Exam Vitals: Vital Signs Temp Pulse Pulse Resp BP BP Pulse Ox 11/30/18 04:53 97.8 F 84 16 138/81 98 11/30/18 00:47 97.7 F 80 18 125/58 97 11/30/18 00:00 79 16 144/69 98 11/29/18 23:23 74 18 121/53 97 11/29/18 21:30 94/58 11/29/18 21:00 79 17 97/59 99 11/29/18 20:30 79 10 L 96/49 11/29/18 20:03 79 9 L 96/49 95 11/29/18 19:24 86 15 100/42 97 11/29/18 18:52 81 11/29/18 18:43 84 11/29/18 18:28 98.1 F 80 20 99/55 93 L Intake and Output 11/29/18 11/30/18 11/30/18 22:59 06:59 14:59 Intake Total 4250 Balance 4250 Intake: Intake, IV Titration 4010 Amount Sodium Chloride 0.9% 1, 960 000 ml @ 120 mls/hr IV . Q8H20M MITCHELL Rx#:[id number] Sodium Chloride 0.9% 1, 1000 000 ml @ 999 mls/hr IV . Q1H1M STA Rx#:[id number] Sodium Chloride 0.9% 1, 1000 000 ml @ 999 mls/hr IV . Q1H1M STA Rx#:[id number] Sodium Chloride 0.9% 500 500 ml 500 ml @ 999 mls/hr IV .Q31M ONE Rx#:[id number] Sodium Chloride 0.9% 500 500 ml 500 ml @ 999 mls/hr IV .Q31M STA Rx#:[id number] cefTRIAXone 1 gm In 50 Sodium Chloride 0.9% 50 ml @ 100 mls/hr IVPB ONCE STA Rx#:[id number] Oral 240 Other: # Voids 1 Weight 86.183 kg General Appearance: Alert, cooperative, mild distress, appears stated age. In mild cough Neck HEENT: Supple, no lymphadenopathy, no thyroid enlargement, no carotid bruits. 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 Lungs: Decreased breath sound bilaterally specially in the right side with fine rhonchi and crackle with mild inspiratory expiratory wheezes bilaterally. Chest Wall: Chest wall normal expansion with deep inspiration no tenderness and no deformity was found on exam, no costochondral pain or discomfort. Heart: Regular rate and rhythm, S1, S2 normal, no murmur, rub or gallop. Back: Symmetric, no curvature, ROM normal, no CVA tenderness. Abdomen: Soft, non-tender, bowel sounds active all four quadrants, no masses, no organomegaly. Extremities: Extremities normal, atraumatic, no cyanosis or edema. Pulses: 2+ and symmetric. Skin: Skin color, texture, tugor normal, no rashes or lesions. Neurologic: Alert oriented with slight confusion moving all his 4 extremity has generalized weakness. Results CBC & Chem 7: 11/30/18 08:25 11/29/18 18:05 Labs: Abnormal Lab Results - Last 24 Hours (Table) 11/29/18 11/29/18 11/29/18 Range/Units 18:05 18:05 18:43 WBC 3.2 L (3.8-10.6) k/uL RBC 4.12 L (4.30-5.90) m/uL Hgb (13.0-17.5) gm/dL Hct (39.0-53.0) % MCV (80.0-100.0) fL MCHC (31.0-37.0) g/dL Plt Count 97 L (150-450) k/uL Lymphocytes # 0.7 L (1.0-4.8) k/uL D-Dimer (<0.60) mg/L FEU Sodium 136 L (137-145) mmol/L BUN 54 H (9-20) mg/dL Creatinine 1.92 H (0.66-1.25) mg/dL Glucose 193 H (74-99) mg/dL POC Glucose (mg/dL) 190 H (75-99) mg/dL Total Protein 6.1 L (6.3-8.2) g/dL 11/29/18 11/30/18 Range/Units 19:36 08:25 WBC (3.8-10.6) k/uL RBC 3.37 L (4.30-5.90) m/uL Hgb 10.6 L (13.0-17.5) gm/dL Hct 34.7 L (39.0-53.0) % MCV 103.2 H (80.0-100.0) fL MCHC 30.5 L (31.0-37.0) g/dL Plt Count 135 L (150-450) k/uL Lymphocytes # 0.3 L (1.0-4.8) k/uL D-Dimer 0.81 H (<0.60) mg/L FEU Sodium (137-145) mmol/L BUN (9-20) mg/dL Creatinine (0.66-1.25) mg/dL Glucose (74-99) mg/dL POC Glucose (mg/dL) (75-99) mg/dL Total Protein (6.3-8.2) g/dL Thrombosis Risk Factor Assmnt - Choose All That Apply Each Factor Represents 1 point: Obesity (BMI >25), Swollen legs (current) Each Risk Factor Represents 3 Points: Age 75 years or older Thrombosis Risk Factor Assessment Total Risk Factor Score: 5 Thrombosis Risk Factor Assessment Level: High Risk Assessment and Plan Plan: 1 acute respiratory failure: Combination of pneumonia, possible PE and possible mild neuro event. 2 possible pulmonary embolism: His d-dimer was elevated patient be hospitalized VQ scan will be done in the meanwhile continue anticoagulation to the result is confirmed. 3 right-sided pneumonia: Most likely gram-negative for aspiration pneumonia especially with patient's current history was start patient on gram-negative coverage with Levaquin and continue updraft treatment [id number] continue O2 try to keep his pulse ox above 92 percentile. Pulmonary consultation if needed. 4 altered mental status: CT of the brain doesn't show any acute abnormality will continue neuro evaluation in the meanwhile continue supplement and continue to treat any metabolic issues including hypoxia and infection. 5 acute kidney injury on chronic kidney disease more stage IV at this point continue gentle hydration and repeat BUN/creatinine. 6 asthma/COPD exacerbation: With patient's current complaint was start Solu- Medrol 40 mg every 6 hours combine with updraft treatment and O2. 7 hypothyroidism: Continue patient on levothyroxine 25 g daily. 8 diastolic congestive heart failure: More chronic continue patient on losartan and smaller dose of diuretics. 9 restless leg syndrome: Remain on ropinirole 2 mg daily at bedtime. 10 BPH: Patient is still on Flomax 0.4 mg twice a day. 11 type 2 diabetes: On insulin patient is hyper/hypoglycemic a lot based on his diet will continue titrate control while his in the hospital at this point. 12 DVT prophylaxis: Patient will be on anticoagulation for now with switch to heparin subcutaneous if no PE. 13 GI prophylaxis: Patient will be on Pepcid 20 mg daily. CODE STATUS: Full code. Admit patient to inpatient status for more than 2 nights.
[2018-11-30] MEDS ORDERED: LEVOFLOXACIN 500MG-D5W PMX 500 MG in DEXTROSE/WATER 1 100ML.BAG IVPB SCH (11:00)
[2018-11-30 11:51] LABS: Glucose,Whole Blood 230 mg/dL (75-99)
[2018-11-30 11:51] LABS: Glucose,Whole Blood 342 mg/dL (75-99)
--- NOTE | 2018-11-30 12:29 | P.CNPUL ---
History of Present Illness Reason for consult: asthma History of present illness: This is an 83-year-old gentleman who presented emergency department with altered mental status, shortness of breath, hypoxia. The patient resides at [facility]. The patient states he has no idea why he was brought to the hospital. He has been at [facility] for 1 year. He states he thought he was being discharged from [facility] soon. He denies any fevers or chills. He states he did come down with a cold recently and does have an occasional cough. He denies shortness of breath, chest pain, wheezing. The patient is currently on room air with O2 saturation 97%. The patient was found to have an elevated d- dimer in the emergency department and VQ scan was done. VQ scan shows low probability for pulmonary embolism. The patient's chest x-ray shows left basilar atelectasis. The patient has been afebrile. The patient is asking if he can go home today. Review of Systems All systems: negative Past Medical History Past Medical History: Asthma, Diabetes Mellitus, Eye Disorder, Hyperlipidemia, Hypertension, Prostate Disorder, Thyroid Disorder Additional Past Medical History / Comment(s): Recent UTI with ABX, fell 02/18/17 with L shoulder dislocation with surgery, IDDM type II, hypothyroid, generalized arthritis, restless leg syndrome, BPH, occasional vertigo, L eye [id number]-[id number] glass eye, mac degeneration R eye-gets injections. History of Any Multi-Drug Resistant Organisms: MRSA Date of last positivie culture/infection: 04/16/17 MDRO Source:: urine Past Surgical History: Cholecystectomy, Orthopedic Surgery Additional Past Surgical History / Comment(s): 02/18/17 closed reduction L shoulder, 2013 Open cholecystectomy, colonoscopies x 3, L eye numerous surgeries and eventual enucleation. Past Anesthesia/Blood Transfusion Reactions: No Reported Reaction Smoking Status: Former smoker - Past Family History Father Family Medical History: No Reported History Mother Family Medical History: Cancer Additional Family Medical History / Comment(s): Mother of metastatic cancer at the age of 54yrs. old. Medications and Allergies Home Medications Medication Instructions Recorded Confirmed Type Insulin Glargine,Hum.rec.anlog 25 units SQ HS 08/24/14 11/29/18 History [Lantus Solostar] Levothyroxine Sodium [Synthroid] 25 mcg PO DAILY 08/24/14 11/29/18 History Losartan Potassium 50 mg PO DAILY 08/24/14 11/29/18 History rOPINIRole HCL [Ropinirole HCl] 2 mg PO HS 08/24/14 11/29/18 History Albuterol Inhaler [Ventolin Hfa 2 puff INHALATION RT-Q4H PRN 02/17/17 11/29/18 History Inhaler] Aspirin EC [Ecotrin Low Dose] 81 mg PO DAILY@1700 02/17/17 11/29/18 History Cholecalciferol [Vitamin D3] 1,000 unit PO DAILY@1700 02/17/17 11/29/18 History Folic Acid 1 mg PO DAILY@1700 02/17/17 11/29/18 History Melatonin 20 mg PO HS 02/17/17 11/29/18 History Multivitamins, Thera [Multivitamin 1 tab PO DAILY@0 02/17/17 11/29/18 History (formulary)] Tamsulosin HCl [Flomax] 0.8 mg PO HS@2100 02/17/17 11/29/18 History Acetaminophen Tab [Tylenol] 500 - 1,000 mg PO Q6H PRN 04/14/17 11/29/18 History Bisacodyl [Dulcolax] 10 mg RECTAL DAILY PRN 04/14/17 11/29/18 History HYDROcodone/APAP 5-325MG [[place] 1 tab PO Q6H PRN 04/14/17 11/29/18 History 5-325] INSULIN LISPRO (humaLOG) [humaLOG] See Protocol SQ ACHS 04/14/17 11/29/18 History Ibuprofen [Motrin] 200 mg PO DAILY PRN 04/14/17 11/29/18 History Magnesium Hydroxide [Milk of 2,400 mg PO DAILY PRN 04/14/17 11/29/18 History Magnesia] Menthol [Biofreeze] 1 applic TOPICAL BID 04/14/17 11/29/18 History Sennosides-Docusate Sodium 2 tab PO HS 04/14/17 11/29/18 History [Senokot-S] Thiamine [Vitamin B-1] 100 mg PO DAILY@1700 04/14/17 11/29/18 History Benzonatate [Tessalon Perles] 100 - 200 mg PO Q6H PRN 11/29/18 11/29/18 History Docusate [Colace] 100 mg PO BID PRN 11/29/18 11/29/18 History Ferrous Sulfate [Feosol] 325 mg PO DAILY@1700 11/29/18 11/29/18 History Finasteride [Proscar] 5 mg PO DAILY 11/29/18 11/29/18 History Furosemide [Lasix] 40 mg PO BID@0800,1400 11/29/18 11/29/18 History Ibuprofen [Motrin] 400 mg PO TID@0800,1400,2100 11/29/18 11/29/18 History Menthol [Biofreeze] 1 applic TOPICAL BID PRN 11/29/18 11/29/18 History Mirtazapine [Remeron] 15 mg PO HS 11/29/18 11/29/18 History Na Phos,M-B/Na Phos,Di-Ba [Fleet 133 ml RECTAL ONCE PRN 11/29/18 11/29/18 History Adult] Vit C/E/Zn/Coppr/Lutein/Zeaxan 1 cap PO DAILY@1700 11/29/18 11/29/18 History [Preservision Areds 2 Softgel] clonazePAM [KlonoPIN] 0.5 mg PO BID@0800,1700 11/29/18 11/29/18 History Allergies Allergy/AdvReac Type Severity Reaction Status Date / Time SALNOI Inhibitors Allergy Unknown Unknown Verified 11/29/18 17:55 enalaprilat [From Vasotec] Allergy Unknown Unknown Verified 11/29/18 17:55 tramadol AdvReac Hallucinati Verified 11/29/18 17:55 ons ANTICOLINERGIC MEDS Allergy Unknown Uncoded 11/29/18 17:55 Physical Exam Osteopathic Statement: *. No significant issues noted on an osteopathic structural exam other than those noted in the History and Physical/Consult. Vitals: Vital Signs Temp Pulse Pulse Resp BP BP Pulse Ox 11/30/18 11:51 97.9 F 85 18 119/74 98 11/30/18 04:53 97.8 F 84 16 138/81 98 11/30/18 00:47 97.7 F 80 18 125/58 97 11/30/18 00:00 79 16 144/69 98 11/29/18 23:23 74 18 121/53 97 11/29/18 21:30 94/58 11/29/18 21:00 79 17 97/59 99 11/29/18 20:30 79 10 L 96/49 11/29/18 20:03 79 9 L 96/49 95 11/29/18 19:24 86 15 100/42 97 11/29/18 18:52 81 11/29/18 18:43 84 11/29/18 18:28 98.1 F 80 20 99/55 93 L Intake and Output 11/29/18 11/30/18 11/30/18 22:59 06:59 14:59 Intake Total 4250 Balance 4250 Intake: Intake, IV Titration 4010 Amount Sodium Chloride 0.9% 1, 960 000 ml @ 120 mls/hr IV . Q8H20M MITCHLEL Rx#:[id number] Sodium Chloride 0.9% 1, 1000 000 ml @ 999 mls/hr IV . Q1H1M STA Rx#:[id number] Sodium Chloride 0.9% 1, 1000 000 ml @ 999 mls/hr IV . Q1H1M STA Rx#:[id number] Sodium Chloride 0.9% 500 500 ml 500 ml @ 999 mls/hr IV .Q31M ONE Rx#:[id number] Sodium Chloride 0.9% 500 500 ml 500 ml @ 999 mls/hr IV .Q31M STA Rx#:[id number] cefTRIAXone 1 gm In 50 Sodium Chloride 0.9% 50 ml @ 100 mls/hr IVPB ONCE STA Rx#:[id number] Oral 240 Other: # Voids 1 Weight 86.183 kg Gen.: Patient is alert and oriented 3, no acute distress Cardiovascular: Regular rate and rhythm, S1/S2 Lungs: Bilateral end expiratory wheezing Abdomen: Soft nontender nondistended positive bowel sounds Extremities: No edema Results - Laboratory Findings CBC and BMP: 11/30/18 08:25 11/29/18 18:05 PT/INR, D-dimer PT 9.9 sec (9.0-12.0) 11/29/18 18:05 INR 0.9 (<1.2) 11/29/18 18:05 D-Dimer 0.81 mg/L FEU (<0.60) H 11/29/18 19:36 Abnormal lab findings: Abnormal Labs 11/29/18 11/29/18 11/29/18 18:05 18:05 18:43 WBC 3.2 L RBC 4.12 L Hgb Hct MCV MCHC Plt Count 97 L Lymphocytes # 0.7 L D-Dimer Sodium 136 L BUN 54 H Creatinine 1.92 H Glucose 193 H POC Glucose (mg/dL) 190 H Total Protein 6.1 L 11/29/18 11/30/18 11/30/18 19:36 06:44 08:25 WBC RBC 3.37 L Hgb 10.6 L Hct 34.7 L MCV 103.2 H MCHC 30.5 L Plt Count 135 L Lymphocytes # 0.3 L D-Dimer 0.81 H Sodium BUN Creatinine Glucose POC Glucose (mg/dL) 230 H Total Protein 11/30/18 11:24 WBC RBC Hgb Hct MCV MCHC Plt Count Lymphocytes # D-Dimer Sodium BUN Creatinine Glucose POC Glucose (mg/dL) 342 H Total Protein - Diagnostic Findings Chest x-ray: report reviewed, image reviewed Assessment and Plan Assessment: Acute exacerbation of asthma/COPD, unknown type Left basilar atelectasis, doubt pneumonia Remote history of tobacco abuse Hypoxia prior to admission, now resolved VQ low probability for PE Altered mental status of unclear etiology 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 We will continue to follow along.
[2018-11-30] MEDS: methylPREDNISolone SOD SUCCI 40 MG/ML 1 ML VIAL IV SCH ×2 (12:34→18:50)
[2018-11-30] MEDS: METHYL SALICYLATE/MENTHOL CREAM 5 OZ TOPICAL SCH ×2 (12:34→22:09)
[2018-11-30] MEDS: INSULIN ASPART (NovoLOG) 100 UNIT/ML VIAL SQ SCH ×3 (12:35→21:58)
[2018-11-30] MEDS: FUROSEMIDE 40 MG TAB PO SCH (12:35)
[2018-11-30 13:11] VITALS: BMI 26.4
[2018-11-30] MEDS: IPRATROPIUM-ALBUTEROL 3 ML NEB INHALATION SCH ×2 (13:53→19:52)
[2018-11-30] MEDS: LOSARTAN 50 MG TAB PO SCH (14:42)
[2018-11-30 17:09] LABS: Glucose,Whole Blood 470 mg/dL (75-99)
[2018-11-30] MEDS: ASPIRIN 81 MG PO SCH (18:01)
[2018-11-30] MEDS: clonazePAM 0.5 MG TAB PO SCH (18:02)
[2018-11-30] MEDS: FERROUS SULFATE 325 MG TAB PO SCH (18:02)
[2018-11-30] MEDS: MULTIVITAMINS, THERA 1 EACH TAB PO SCH (18:02)
[2018-11-30] MEDS: VIT A,C & E-LUTEIN-MINERALS 1 EACH TAB PO SCH (18:02)
[2018-11-30] MEDS: THIAMINE 100 MG TAB PO SCH (18:03)
[2018-11-30] MEDS: FOLIC ACID 1 MG TAB PO SCH (18:03)
[2018-11-30] MEDS ORDERED: INSULIN ASPART (NovoLOG) 100 UNIT/ML VIAL SQ ONE ×2 (18:21→18:22)
[2018-11-30 19:14] LABS: Hemoglobin A1C 7.2 % (4.0-6.0)
[2018-11-30] MEDS: BUDESONIDE 0.5 MG/2 ML NEBU INHALATION SCH (19:52)
[2018-11-30 20:48] LABS: Glucose,Whole Blood 385 mg/dL (75-99)
[2018-11-30 21:45] LABS: Glucose,Whole Blood 378 mg/dL (75-99)
[2018-11-30] MEDS ORDERED: INSULIN REGULAR BOLUS (FROM DRIP BAG) IV ONE (21:52)
[2018-11-30] MEDS: TAMSULOSIN 0.4 MG CAP.ER.24H PO SCH (21:59)
[2018-11-30] MEDS: SENNOSIDES-DOCUSATE SODIUM 1 EACH TAB PO SCH (21:59)
[2018-11-30] MEDS: MELATONIN 5 MG TABLET PO SCH (22:00)
[2018-11-30] MEDS: MIRTAZAPINE 15 MG TAB PO SCH (22:00)
[2018-11-30] MEDS: INSULIN DETEMIR (LEVEMIR) 100 UNIT/ML SYR SQ SCH (22:00)
[2018-11-30 22:58] LABS: Glucose,Whole Blood 326 mg/dL (75-99)
[2018-11-30] MEDS: INSULIN REGULAR 100 UNIT in SODIUM CHLORIDE 0.9% 100 ML IV SCH ×2 (23:00→23:31)
[2018-11-30 23:29] LABS: Glucose,Whole Blood 248 mg/dL (75-99)
[2018-12-01] MEDS: methylPREDNISolone SOD SUCCI 40 MG/ML 1 ML VIAL IV SCH ×5 (00:47→23:48)
[2018-12-01 01:57] LABS: Glucose,Whole Blood 60 mg/dL (75-99)
[2018-12-01] MEDS: SODIUM CHLORIDE 0.9% 1,000 ML IV SCH ×2 (02:05→21:07)
[2018-12-01 02:16] LABS: Glucose,Whole Blood 46 mg/dL (75-99)
[2018-12-01] MEDS ORDERED: DEXTROSE 50%-WATER 50 ML SYRINGE IVP ONE (02:16)
[2018-12-01 02:35] LABS: Glucose,Whole Blood 97 mg/dL (75-99)
[2018-12-01 03:29] LABS: Glucose,Whole Blood 81 mg/dL (75-99)
[2018-12-01 03:46] LABS: Glucose,Whole Blood 98 mg/dL (75-99)
[2018-12-01] MEDS: ACETAMINOPHEN TAB 500 MG TAB PO PRN ×2 (04:09→13:29)
[2018-12-01] MEDS: LEVOTHYROXINE 25 MCG TAB PO SCH (05:22)
[2018-12-01 06:43] LABS: Glucose,Whole Blood 212 mg/dL (75-99)
[2018-12-01] MEDS ORDERED: INSULIN ASPART (NovoLOG) 100 UNIT/ML VIAL SQ SCH (07:30)
[2018-12-01] MEDS: FINASTERIDE 5 MG TAB PO SCH (08:07)
[2018-12-01] MEDS: FUROSEMIDE 40 MG TAB PO SCH ×2 (08:07→14:28)
[2018-12-01] MEDS: clonazePAM 0.5 MG TAB PO SCH ×2 (08:07→17:05)
[2018-12-01] MEDS: LOSARTAN 50 MG TAB PO SCH (08:09)
[2018-12-01] MEDS: METHYL SALICYLATE/MENTHOL CREAM 5 OZ TOPICAL SCH ×2 (08:10→21:07)
[2018-12-01 08:25] LABS: Basophils % (A) 0 %; Eosinophils # (A) 0.1 k/uL (0-0.7); Eosinophils % (A) 1 %; HCT 32.2 % (39.0-53.0); HGB 10.6 gm/dL (13.0-17.5); Lymphocytes # (A) 0.4 k/uL (1.0-4.8); Lymphocytes % (A) 5 %; MCH 31.9 pg (25.0-35.0); MCHC 33.1 g/dL (31.0-37.0); Mean Platelet Volume 8.7; Monocytes # (A) 0.2 k/uL (0-1.0); Monocytes % (A) 3 %; Neutrophils # (A) 7.1 k/uL (1.3-7.7); Neutrophils % (A) 91 %; Platelet Count 186 k/uL (150-450); RBC 3.34 m/uL (4.30-5.90); RDW 13.3 % (11.5-15.5); WBC 7.8 k/uL (3.8-10.6)
[2018-12-01 08:28] LABS: MCV 96.4 fL (80.0-100.0)
[2018-12-01] MEDS: IPRATROPIUM-ALBUTEROL 3 ML NEB INHALATION SCH ×3 (08:55→23:20)
[2018-12-01] MEDS: BUDESONIDE 0.5 MG/2 ML NEBU INHALATION SCH ×2 (08:55→23:20)
--- NOTE | 2018-12-01 10:34 | P.DS ---
Providers Date of admission: 11/29/18 23:26 Attending physician: Gilbert Machuca Consults: 11/29/18 20:49 Consult Physician Stat Consulting Provider: Deb Ibarra Consult Reason/Comments: asthma exacerbation Do you want consulting provider notified?: Yes Primary care physician: Gilbert Machuca [facility] Course: Chief Complaint: Severe shortness of breath, altered mental status, possible PE , right-sided 83-year-old male with known from [facility] for the last 2 years with past medical history of type 2 diabetes on insulin, asthma/COPD, chronic kidney disease, hypothyroidism and BPH who was in the hospital last time in 2017 for fracture shoulder. Patient found in his bed on 11/29/2018 not feeling well, had mild altered mental status, more congested with worsening shortness of breath with quiet hypoxia as well. Patient was started on O2 some updraft treatment and expectorant with no help ended up coming to the emergency department at [facility] were was seen and evaluated with higher suspicion for pulmonary embolism his d-dimer was elevated his creatinine was over 1.8 not been able to do CTA patient also had workup for altered mental status with chest x-ray showed questionable left infiltrate in the right side his white blood cell was mildly elevated patient had negative urine test with CAT scan of the brain shows small vessel disease only with no acute abnormality consistent with bleed or stroke. Review of Systems CONSTITUTIONAL: Well-developed no acute respiratory distress. Mild cough wheezes EYES: No icterus sclerae, no conjunctivitis. EARS, NOSE, MOUTH, THROAT, and FACE: No sore throat, lymphadenopathy, carotid bruits or deformity. RESPIRATORY: Mild shortness of breath cough wheezes CARDIOVASCULAR: No CP, Palpitation, PND, Orthopnea, or angina. GASTROINTESTINAL: No Abd pain, Nausea or vomiting, no Diarrhea or constipation, No GI Bleed, no distention or masses. GENITOURINARY: Negative for Hematuria or UTI, no kidney stones. INTEGUMENT/BREAST: Negative for any muscular injury with mild osteoarthritis.. HEMATOLOGIC/LYMPHATIC: Negative for bleed or purpura. MUSCULOSKELTAL: Negative for Myalgia or arthralgia. NEURLOGICAL: Mild out or mental status but still able to move all his 4 extremities. BEHAVIORAL/PSYCH: Negative. ENDOCRINE: Negative. Physical Exam Vitals: Vital Signs Temp Pulse Pulse Resp BP BP Pulse Ox 11/30/18 04:53 97.8 F 84 16 138/81 98 11/30/18 00:47 97.7 F 80 18 125/58 97 11/30/18 00:00 79 16 144/69 98 11/29/18 23:23 74 18 121/53 97 11/29/18 21:30 94/58 11/29/18 21:00 79 17 97/59 99 11/29/18 20:30 79 10 L 96/49 11/29/18 20:03 79 9 L 96/49 95 11/29/18 19:24 86 15 100/42 97 11/29/18 18:52 81 11/29/18 18:43 84 11/29/18 18:28 98.1 F 80 20 99/55 93 L Intake and Output 11/29/18 11/30/18 11/30/18 22:59 06:59 14:59 Intake Total 4250 Balance 4250 Intake: Intake, IV Titration 4010 Amount Sodium Chloride 0.9% 1, 960 000 ml @ 120 mls/hr IV . Q8H20M MITCHELL Rx#:[id number] Sodium Chloride 0.9% 1, 1000 000 ml @ 999 mls/hr IV . Q1H1M STA Rx#:[id number] Sodium Chloride 0.9% 1, 1000 000 ml @ 999 mls/hr IV . Q1H1M STA Rx#:[id number] Sodium Chloride 0.9% 500 500 ml 500 ml @ 999 mls/hr IV .Q31M ONE Rx#:[id number] Sodium Chloride 0.9% 500 500 ml 500 ml @ 999 mls/hr IV .Q31M STA Rx#:[id number] cefTRIAXone 1 gm In 50 Sodium Chloride 0.9% 50 ml @ 100 mls/hr IVPB ONCE STA Rx#:[id number] Oral 240 Other: # Voids 1 Weight 86.183 kg General Appearance: Alert, cooperative, mild distress, appears stated age. In mild cough Neck HEENT: Supple, no lymphadenopathy, no thyroid enlargement, no carotid bruits. 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 Lungs: Decreased breath sound bilaterally specially in the right side with fine rhonchi and crackle with mild inspiratory expiratory wheezes bilaterally. Chest Wall: Chest wall normal expansion with deep inspiration no tenderness and no deformity was found on exam, no costochondral pain or discomfort. Heart: Regular rate and rhythm, S1, S2 normal, no murmur, rub or gallop. Back: Symmetric, no curvature, ROM normal, no CVA tenderness. Abdomen: Soft, non-tender, bowel sounds active all four quadrants, no masses, no organomegaly. Extremities: Extremities normal, atraumatic, no cyanosis or edema. Pulses: 2+ and symmetric. Skin: Skin color, texture, tugor normal, no rashes or lesions. Neurologic: Alert oriented with slight confusion moving all his 4 extremity has generalized weakness. Risk Factor Assessment Level: High Risk Assessment and Plan Plan: 1 acute respiratory failure: Combination of pneumonia, possible PE and possible mild neuro event. 2 possible pulmonary embolism: His d-dimer was elevated patient be hospitalized VQ scan will be done in the meanwhile continue anticoagulation to the result is confirmed. 3 right-sided pneumonia: Most likely gram-negative for aspiration pneumonia especially with patient's current history was start patient on gram-negative coverage with Levaquin and continue updraft treatment [id number] continue O2 try to keep his pulse ox above 92 percentile. Pulmonary consultation if needed. 4 altered mental status: CT of the brain doesn't show any acute abnormality will continue neuro evaluation in the meanwhile continue supplement and continue to treat any metabolic issues including hypoxia and infection. 5 acute kidney injury on chronic kidney disease more stage IV at this point continue gentle hydration and repeat BUN/creatinine. 6 asthma/COPD exacerbation: With patient's current complaint was start Solu- Medrol 40 mg every 6 hours combine with updraft treatment and O2. 7 hypothyroidism: Continue patient on levothyroxine 25 g daily. 8 diastolic congestive heart failure: More chronic continue patient on losartan and smaller dose of diuretics. 9 restless leg syndrome: Remain on ropinirole 2 mg daily at bedtime. 10 BPH: Patient is still on Flomax 0.4 mg twice a day. 11 type 2 diabetes: On insulin patient is hyper/hypoglycemic a lot based on his diet will continue titrate control while his in the hospital at this point. 12 DVT prophylaxis: Patient will be on anticoagulation for now with switch to heparin subcutaneous if no PE. 13 GI prophylaxis: Patient will be on Pepcid 20 mg daily. CODE STATUS: Full code. In 12/01/2018: Patient is doing very well, as this congested, no fluid overload , his mental status are back to its baseline. His VQ scan was negative no sign of PE at this point and patient still been treated for right-sided pneumonia along with mild fluid overload and COPD excessive patient will continue his treatment in [facility] and switch all his meds to oral. Patient Condition at Discharge: Serious Plan - Discharge Summary Discharge Rx Participant: No New Discharge Prescriptions: New Budesonide [Pulmicort] 0.5 mg INHALATION RT-BID nebu Ipratropium-Albuterol Nebulize [Duoneb 0.5 mg-3 mg/3 ml Soln] 3 ml INHALATION RT-TID #0 ampul.neb Levofloxacin [Levaquin] 500 mg PO DAILY #5 tab predniSONE 10 mg PO DAILY #30 tab Continue Losartan Potassium 50 mg PO DAILY rOPINIRole HCL [Ropinirole HCl] 2 mg PO HS Insulin Glargine,Hum.rec.anlog [Lantus Solostar] 25 units SQ HS Levothyroxine Sodium [Synthroid] 25 mcg PO DAILY Multivitamins, Thera [Multivitamin (formulary)] 1 tab PO DAILY@1700 Cholecalciferol [Vitamin D3] 1,000 unit PO DAILY@1700 Albuterol Inhaler [Ventolin Hfa Inhaler] 2 puff INHALATION RT-Q4H PRN PRN Reason: Shortness Of Breath Melatonin 20 mg PO HS Tamsulosin HCl [Flomax] 0.8 mg PO HS@2100 Folic Acid 1 mg PO DAILY@1700 Aspirin EC [Ecotrin Low Dose] 81 mg PO DAILY@1700 Acetaminophen Tab [Tylenol] 500 - 1,000 mg PO Q6H PRN PRN Reason: Pain Bisacodyl [Dulcolax] 10 mg RECTAL DAILY PRN PRN Reason: Constipation HYDROcodone/APAP 5-325MG [Rutherford 5-325] 1 tab PO Q6H PRN PRN Reason: Pain Ibuprofen [Motrin] 200 mg PO DAILY PRN PRN Reason: SHOULDER PAIN INSULIN LISPRO (humaLOG) [humaLOG] See Protocol SQ ACHS Magnesium Hydroxide [Milk of Magnesia] 2,400 mg PO DAILY PRN PRN Reason: Constipation Menthol [Biofreeze] 1 applic TOPICAL BID Sennosides-Docusate Sodium [Senokot-S] 2 tab PO HS Thiamine [Vitamin B-1] 100 mg PO DAILY@1700 Vit C/E/Zn/Coppr/Lutein/Zeaxan [Preservision Areds 2 Softgel] 1 cap PO DAILY@ 1699 Benzonatate [Tessalon Perles] 100 - 200 mg PO Q6H PRN PRN Reason: Cough clonazePAM [KlonoPIN] 0.5 mg PO BID@0800,1700 Docusate [Colace] 100 mg PO BID PRN PRN Reason: Constipation Ferrous Sulfate [Iron (65 MG Elemental)] 325 mg PO DAILY@1699 Finasteride [Proscar] 5 mg PO DAILY Furosemide [Lasix] 40 mg PO BID@0800,1400 Ibuprofen [Motrin] 400 mg PO TID@0800,1400,2099 Menthol [Biofreeze] 1 applic TOPICAL BID PRN PRN Reason: HAND/KNEE PAIN Mirtazapine [Remeron] 15 mg PO HS Na Phos,M-B/Na Phos,Di-Ba [Fleet Adult] 133 ml RECTAL ONCE PRN PRN Reason: Constipation Discharge Medication List Insulin Glargine,Hum.rec.anlog [Lantus Solostar] 25 units SQ HS 08/24/14 [ History] Levothyroxine Sodium [Synthroid] 25 mcg PO DAILY 08/24/14 [History] Losartan Potassium 50 mg PO DAILY 08/24/14 [History] rOPINIRole HCL [Ropinirole HCl] 2 mg PO HS 08/24/14 [History] Albuterol Inhaler [Ventolin Hfa Inhaler] 2 puff INHALATION RT-Q4H PRN 02/17/17 [ History] Aspirin EC [Ecotrin Low Dose] 81 mg PO DAILY@169902/17/17 [History] Cholecalciferol [Vitamin D3] 1,000 unit PO DAILY@169902/17/17 [History] Folic Acid 1 mg PO DAILY@169902/17/17 [History] Melatonin 20 mg PO HS 02/17/17 [History] Multivitamins, Thera [Multivitamin (formulary)] 1 tab PO DAILY@169902/17/17 [ History] Tamsulosin HCl [Flomax] 0.8 mg PO HS@209902/17/17 [History] Acetaminophen Tab [Tylenol] 500 - 1,000 mg PO Q6H PRN 04/14/17 [History] Bisacodyl [Dulcolax] 10 mg RECTAL DAILY PRN 04/14/17 [History] HYDROcodone/APAP 5-325MG [Rutherford 5-325] 1 tab PO Q6H PRN 04/14/17 [History] INSULIN LISPRO (humaLOG) [humaLOG] See Protocol SQ ACHS 04/14/17 [History] Ibuprofen [Motrin] 200 mg PO DAILY PRN 04/14/17 [History] Magnesium Hydroxide [Milk of Magnesia] 2,400 mg PO DAILY PRN 04/14/17 [History] Menthol [Biofreeze] 1 applic TOPICAL BID 04/14/17 [History] Sennosides-Docusate Sodium [Senokot-S] 2 tab PO HS 04/14/17 [History] Thiamine [Vitamin B-1] 100 mg PO DAILY@169904/14/17 [History] Benzonatate [Tessalon Perles] 100 - 200 mg PO Q6H PRN 11/29/18 [History] Docusate [Colace] 100 mg PO BID PRN 11/29/18 [History] Ferrous Sulfate [Iron (65 MG Elemental)] 325 mg PO DAILY@169911/29/18 [History] Finasteride [Proscar] 5 mg PO DAILY 11/29/18 [History] Furosemide [Lasix] 40 mg PO BID@0800,1400 11/29/18 [History] Ibuprofen [Motrin] 400 mg PO TID@0800,1400,2100 11/29/18 [History] Menthol [Biofreeze] 1 applic TOPICAL BID PRN 11/29/18 [History] Mirtazapine [Remeron] 15 mg PO HS 11/29/18 [History] Na Phos,M-B/Na Phos,Di-Ba [Fleet Adult] 133 ml RECTAL ONCE PRN 11/29/18 [History ] Vit C/E/Zn/Coppr/Lutein/Zeaxan [Preservision Areds 2 Softgel] 1 cap PO DAILY@ 169911/29/18 [History] clonazePAM [KlonoPIN] 0.5 mg PO BID@0800,1700 11/29/18 [History] Budesonide [Pulmicort] 0.5 mg INHALATION RT-BID nebu 12/01/18 [Rx] Ipratropium-Albuterol Nebulize [Duoneb 0.5 mg-3 mg/3 ml Soln] 3 ml INHALATION RT -TID #0 ampul.neb 12/01/18 [Rx] Levofloxacin [Levaquin] 500 mg PO DAILY #5 tab 12/01/18 [Rx] predniSONE 10 mg PO DAILY #30 tab 12/01/18 [Rx] Follow up Appointment(s)/Referral(s): Gilbert Machuca MD [Primary Care Provider] - 1-2 days
[2018-12-01 11:14] LABS: Glucose,Whole Blood 146 mg/dL (75-99)
[2018-12-01] MEDS ORDERED: GENTAMICIN 0.3% OPHTH OINT 3.5 GM TUBE LEFT EYE SCH (11:45)
[2018-12-01] MEDS: INSULIN ASPART (NovoLOG) 100 UNIT/ML VIAL SQ SCH ×3 (12:30→21:10)
--- NOTE | 2018-12-01 12:32 | PN ---
PROGRESS NOTE DATE OF SERVICE: 12/01/2018 He has been hemodynamically stable, he is less short of breath. On physical examination respiratory rate is 16, pulse rate 84, temperature 97.5, blood pressure 144/75, O2 saturation on room air is 96%. HEENT is unremarkable. Chest is clear. Cardiovascular system reveals an S1, S2. Abdomen is soft. There is no pedal edema. IMPRESSION: 1. Chronic obstructive pulmonary disease with acute exacerbation. 2. Asthma. 3. Metabolic encephalopathy. 4. Restless legs syndrome. Agree with possible discharge planning with close outpatient followup. Increase his activity level. His medications were reviewed. I would like to thank you for the privilege of allowing us to participate in his care. MMODL / IJN: [id number] /
[2018-12-01] MEDS: GENTAMICIN 0.3% OPHTH DROPS 5 ML BTL LEFT EYE SCH ×3 (13:05→23:49)
[2018-12-01] MEDS: LEVOFLOXACIN 250MG-D5W PMX 250 MG in DEXTROSE/WATER 1 50ML.BAG IVPB SCH (13:12)
[2018-12-01 16:55] LABS: Glucose,Whole Blood 131 mg/dL (75-99)
[2018-12-01] MEDS: MULTIVITAMINS, THERA 1 EACH TAB PO SCH (17:05)
[2018-12-01] MEDS: VIT A,C & E-LUTEIN-MINERALS 1 EACH TAB PO SCH (17:05)
[2018-12-01] MEDS: FOLIC ACID 1 MG TAB PO SCH (17:05)
[2018-12-01] MEDS: ASPIRIN 81 MG PO SCH (17:05)
[2018-12-01] MEDS: THIAMINE 100 MG TAB PO SCH (17:05)
[2018-12-01] MEDS: FERROUS SULFATE 325 MG TAB PO SCH (17:05)
[2018-12-01 20:51] LABS: Glucose,Whole Blood 274 mg/dL (75-99)
[2018-12-01] MEDS: MELATONIN 5 MG TABLET PO SCH (21:08)
[2018-12-01] MEDS: TAMSULOSIN 0.4 MG CAP.ER.24H PO SCH (21:09)
[2018-12-01] MEDS: SENNOSIDES-DOCUSATE SODIUM 1 EACH TAB PO SCH (21:09)
[2018-12-01] MEDS: INSULIN DETEMIR (LEVEMIR) 100 UNIT/ML SYR SQ SCH (21:10)
[2018-12-01] MEDS: MIRTAZAPINE 15 MG TAB PO SCH (21:10)
[2018-12-02] MEDS: methylPREDNISolone SOD SUCCI 40 MG/ML 1 ML VIAL IV SCH ×3 (04:56→18:02)
[2018-12-02] MEDS: LEVOTHYROXINE 25 MCG TAB PO SCH (04:56)
[2018-12-02 06:59] LABS: Glucose,Whole Blood 35 mg/dL (75-99)
[2018-12-02 07:05] LABS: Glucose,Whole Blood 34 mg/dL (75-99)
[2018-12-02] MEDS ORDERED: DEXTROSE 50%-WATER 50 ML SYRINGE IVP ONE (07:20)
[2018-12-02 07:29] LABS: Glucose,Whole Blood 44 mg/dL (75-99)
[2018-12-02] MEDS: INSULIN ASPART (NovoLOG) 100 UNIT/ML VIAL SQ SCH ×4 (07:31→21:07)
[2018-12-02] MEDS: BUDESONIDE 0.5 MG/2 ML NEBU INHALATION SCH ×2 (07:32→20:34)
[2018-12-02] MEDS: IPRATROPIUM-ALBUTEROL 3 ML NEB INHALATION SCH ×3 (07:32→20:34)
[2018-12-02 07:38] LABS: Glucose,Whole Blood 96 mg/dL (75-99)
[2018-12-02 07:47] LABS: Basophils % (A) 0 %; Eosinophils % (A) 0 %; HCT 35.6 % (39.0-53.0); HGB 11.5 gm/dL (13.0-17.5); Hypochromasia Slight; Lymphocytes # (A) 1.1 k/uL (1.0-4.8); Lymphocytes % (A) 15 %; MCHC 32.2 g/dL (31.0-37.0); MCV 99.3 fL (80.0-100.0); Mean Platelet Volume 7.3; Monocytes # (A) 0.8 k/uL (0-1.0); Monocytes % (A) 11 %; Neutrophils # (A) 5.1 k/uL (1.3-7.7); Neutrophils % (A) 72 %; Platelet Count 189 k/uL (150-450); RBC 3.58 m/uL (4.30-5.90); RDW 13.3 % (11.5-15.5); WBC 7.1 k/uL (3.8-10.6)
[2018-12-02 07:50] LABS: Albumin 3.3 g/dL (3.5-5.0); Calcium 9.1 mg/dL (8.4-10.2); Potassium 3.9 mmol/L (3.5-5.1); Total Bilirubin 0.5 mg/dL (0.2-1.3)
[2018-12-02] MEDS: FUROSEMIDE 40 MG TAB PO SCH ×2 (08:04→16:17)
[2018-12-02] MEDS: GENTAMICIN 0.3% OPHTH DROPS 5 ML BTL LEFT EYE SCH ×2 (08:04→16:21)
[2018-12-02] MEDS: clonazePAM 0.5 MG TAB PO SCH ×2 (08:04→16:17)
[2018-12-02] MEDS: METHYL SALICYLATE/MENTHOL CREAM 5 OZ TOPICAL SCH ×2 (08:05→21:10)
[2018-12-02] MEDS: LOSARTAN 50 MG TAB PO SCH (08:05)
[2018-12-02] MEDS: FINASTERIDE 5 MG TAB PO SCH (08:05)
[2018-12-02 11:05] LABS: Glucose,Whole Blood 225 mg/dL (75-99)
--- NOTE | 2018-12-02 11:08 | P.PN ---
Subjective Progress Note Date: 12/01/18 83-year-old male with known from [facility] for the last 2 years with past medical history of type 2 diabetes on insulin, asthma/COPD, chronic kidney disease, hypothyroidism and BPH who was in the hospital last time in 2017 for fracture shoulder. Patient found in his bed on 11/29/2018 not feeling well, had mild altered mental status, more congested with worsening shortness of breath with quiet hypoxia as well. Patient was started on O2 some updraft treatment and expectorant with no help ended up coming to the emergency department at [facility] were was seen and evaluated with higher suspicion for pulmonary embolism his d-dimer was elevated his creatinine was over 1.8 not been able to do CTA patient also had workup for altered mental status with chest x-ray showed questionable left infiltrate in the right side his white blood cell was mildly elevated patient had negative urine test with CAT scan of the brain shows small vessel disease only with no acute abnormality consistent with bleed or stroke. 12/01: Patient was seen today with anticipation of discharge to [facility]. Discharge summary was completed with physical examination. Due to increased shortness of breath and possible aspiration pneumonia patient discharge was delayed. Family meeting was set up for 12/02. Review of Systems CONSTITUTIONAL: Well-developed no acute respiratory distress. Mild cough wheezes EYES: No icterus sclerae, no conjunctivitis. EARS, NOSE, MOUTH, THROAT, and FACE: No sore throat, lymphadenopathy, carotid bruits or deformity. RESPIRATORY: Mild shortness of breath cough wheezes CARDIOVASCULAR: No CP, Palpitation, PND, Orthopnea, or angina. GASTROINTESTINAL: No Abd pain, Nausea or vomiting, no Diarrhea or constipation, No GI Bleed, no distention or masses. GENITOURINARY: Negative for Hematuria or UTI, no kidney stones. INTEGUMENT/BREAST: Negative for any muscular injury with mild osteoarthritis.. HEMATOLOGIC/LYMPHATIC: Negative for bleed or purpura. MUSCULOSKELTAL: Negative for Myalgia or arthralgia. NEURLOGICAL: Mild out or mental status but still able to move all his 4 extremities. BEHAVIORAL/PSYCH: Negative. ENDOCRINE: Negative. Objective - Vital Signs Vital signs: Vital Signs Temp 97.3 F L 12/02/18 04:54 Pulse 77 12/02/18 08:35 Resp 16 12/02/18 08:35 BP 142/76 12/02/18 04:54 Pulse Ox 94 L 12/02/18 04:54 Intake & Output 12/01/18 12/02/18 12/02/18 18:59 06:59 18:59 Intake Total 240 Output Total 1600 800 Balance -1360 -800 Intake: Oral 240 Output: Urine 1600 800 Other: Voiding Method Toilet Toilet Toilet Urinal Urinal Urinal # Voids 3 1 3 - Exam General Appearance: Alert, cooperative, mild distress, appears stated age. In mild cough Neck HEENT: Supple, no lymphadenopathy, no thyroid enlargement, no carotid bruits. 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 Lungs: Decreased breath sound bilaterally specially in the right side with fine rhonchi and crackle with mild inspiratory expiratory wheezes bilaterally. Chest Wall: Chest wall normal expansion with deep inspiration no tenderness and no deformity was found on exam, no costochondral pain or discomfort. Heart: Regular rate and rhythm, S1, S2 normal, no murmur, rub or gallop. Back: Symmetric, no curvature, ROM normal, no CVA tenderness. Abdomen: Soft, non-tender, bowel sounds active all four quadrants, no masses, no organomegaly. Extremities: Extremities normal, atraumatic, no cyanosis or edema. Pulses: 2+ and symmetric. Skin: Skin color, texture, tugor normal, no rashes or lesions. Neurologic: Alert oriented with slight confusion moving all his 4 extremity has generalized weakness. - Labs CBC & Chem 7: 12/02/18 07:18 12/02/18 07:18 Labs: Abnormal Lab Results - Last 24 Hours (Table) 12/01/18 12/01/18 12/01/18 Range/Units 11:12 16:53 20:50 RBC (4.30-5.90) m/uL Hgb (13.0-17.5) gm/dL Hct (39.0-53.0) % Chloride (98-107) mmol/L BUN (9-20) mg/dL Glucose (74-99) mg/dL POC Glucose (mg/dL) 146 H 131 H 274 H (75-99) mg/dL Total Protein (6.3-8.2) g/dL Albumin (3.5-5.0) g/dL 12/02/18 12/02/18 12/02/18 Range/Units 06:57 07:03 07:18 RBC 3.58 L (4.30-5.90) m/uL Hgb 11.5 L (13.0-17.5) gm/dL Hct 35.6 L (39.0-53.0) % Chloride (98-107) mmol/L BUN (9-20) mg/dL Glucose (74-99) mg/dL POC Glucose (mg/dL) 35 L 34 L (75-99) mg/dL Total Protein (6.3-8.2) g/dL Albumin (3.5-5.0) g/dL 12/02/18 12/02/18 12/02/18 Range/Units 07:18 07:18 11:02 RBC (4.30-5.90) m/uL Hgb (13.0-17.5) gm/dL Hct (39.0-53.0) % Chloride 109 H (98-107) mmol/L BUN 43 H (9-20) mg/dL Glucose 47 L* (74-99) mg/dL POC Glucose (mg/dL) 44 L 225 H (75-99) mg/dL Total Protein 6.0 L (6.3-8.2) g/dL Albumin 3.3 L (3.5-5.0) g/dL Microbiology - Last 24 Hours (Table) 11/29/18 20:20 Blood Culture - Preliminary Blood No Growth after 48 hours Assessment and Plan Plan: 1 acute respiratory failure: Combination of pneumonia, possible PE and possible mild neuro event. 2 possible pulmonary embolism: His d-dimer was elevated patient be hospitalized VQ scan will be done in the meanwhile continue anticoagulation to the result is confirmed. 3 right-sided pneumonia: Most likely gram-negative for aspiration pneumonia especially with patient's current history was start patient on gram-negative coverage with Levaquin and continue updraft treatment [id number] continue O2 try to keep his pulse ox above 92 percentile. Pulmonary consultation if needed. 4 altered mental status: CT of the brain doesn't show any acute abnormality will continue neuro evaluation in the meanwhile continue supplement and continue to treat any metabolic issues including hypoxia and infection. 5 acute kidney injury on chronic kidney disease more stage IV at this point continue gentle hydration and repeat BUN/creatinine. 6 asthma/COPD exacerbation: With patient's current complaint was start Solu- Medrol 40 mg every 6 hours combine with updraft treatment and O2. 7 hypothyroidism: Continue patient on levothyroxine 25 g daily. 8 diastolic congestive heart failure: More chronic continue patient on losartan and smaller dose of diuretics. 9 restless leg syndrome: Remain on ropinirole 2 mg daily at bedtime. 10 BPH: Patient is still on Flomax 0.4 mg twice a day. 11 type 2 diabetes: On insulin patient is hyper/hypoglycemic a lot based on his diet will continue titrate control while his in the hospital at this point. 12 DVT prophylaxis: Patient will be on anticoagulation for now with switch to heparin subcutaneous if no PE. 13 GI prophylaxis: Patient will be on Pepcid 20 mg daily. CODE STATUS: Full code. In 12/01/2018: Patient is doing very well, as this congested, no fluid overload , his mental status are back to its baseline. His VQ scan was negative no sign of PE at this point and patient still been treated for right-sided pneumonia along with mild fluid overload and COPD excessive patient will continue his treatment in [facility] and switch all his meds to oral.
--- NOTE | 2018-12-02 11:12 | P.PN ---
Subjective Progress Note Date: 12/02/18 83-year-old male with known from [facility] for the last 2 years with past medical history of type 2 diabetes on insulin, asthma/COPD, chronic kidney disease, hypothyroidism and BPH who was in the hospital last time in 2017 for fracture shoulder. Patient found in his bed on 11/29/2018 not feeling well, had mild altered mental status, more congested with worsening shortness of breath with quiet hypoxia as well. Patient was started on O2 some updraft treatment and expectorant with no help ended up coming to the emergency department at [facility] were was seen and evaluated with higher suspicion for pulmonary embolism his d-dimer was elevated his creatinine was over 1.8 not been able to do CTA patient also had workup for altered mental status with chest x-ray showed questionable left infiltrate in the right side his white blood cell was mildly elevated patient had negative urine test with CAT scan of the brain shows small vessel disease only with no acute abnormality consistent with bleed or stroke. 12/01: Patient was seen today with anticipation of discharge to [facility]. Discharge summary was completed with physical examination. Due to increased shortness of breath and possible aspiration pneumonia patient discharge was delayed. Family meeting was set up for 12/02. 12/02: Patient experienced an episode of hypoglycemia this morning. Patient also had increase shortness of breath with possible aspiration pneumonia. Discharge was delayed. A family meeting up occurred with daughter and son-in- law to discuss rationale of admission and treatment options. Discussion included the importance of patient not living on own and that he requires 24 hour care/supervision. Family and patient both verbalized understanding. Due to the frequent episodes of hypo-and hyperglycemia outpatient diabetes management will include appointment with endocrinology. Patient is resting comfortably in in chair. Without any complaints at this time. Patient has less congestion in no acute distress. Review of Systems CONSTITUTIONAL: Well-developed no acute respiratory distress. Mild cough wheezes EYES: No icterus sclerae, no conjunctivitis. EARS, NOSE, MOUTH, THROAT, and FACE: No sore throat, lymphadenopathy, carotid bruits or deformity. RESPIRATORY: Mild shortness of breath cough wheezes CARDIOVASCULAR: No CP, Palpitation, PND, Orthopnea, or angina. GASTROINTESTINAL: No Abd pain, Nausea or vomiting, no Diarrhea or constipation, No GI Bleed, no distention or masses. GENITOURINARY: Negative for Hematuria or UTI, no kidney stones. INTEGUMENT/BREAST: Negative for any muscular injury with mild osteoarthritis.. HEMATOLOGIC/LYMPHATIC: Negative for bleed or purpura. MUSCULOSKELTAL: Negative for Myalgia or arthralgia. NEURLOGICAL: Mild out or mental status but still able to move all his 4 extremities. BEHAVIORAL/PSYCH: Negative. ENDOCRINE: Negative. Objective - Vital Signs Vital signs: Vital Signs Temp 97.3 F L 12/02/18 04:54 Pulse 77 12/02/18 08:35 Resp 16 12/02/18 08:35 BP 142/76 12/02/18 04:54 Pulse Ox 94 L 12/02/18 04:54 Intake & Output 12/01/18 12/02/18 12/02/18 18:59 06:59 18:59 Intake Total 240 Output Total 1600 800 Balance -1360 -800 Intake: Oral 240 Output: Urine 1600 800 Other: Voiding Method Toilet Toilet Toilet Urinal Urinal Urinal # Voids 3 1 3 - Exam General Appearance: Alert, cooperative, mild distress, appears stated age. In mild cough Neck HEENT: Supple, no lymphadenopathy, no thyroid enlargement, no carotid bruits. 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 Lungs: Decreased breath sound bilaterally specially in the right side with fine rhonchi and crackle with mild inspiratory expiratory wheezes bilaterally. Chest Wall: Chest wall normal expansion with deep inspiration no tenderness and no deformity was found on exam, no costochondral pain or discomfort. Heart: Regular rate and rhythm, S1, S2 normal, no murmur, rub or gallop. Back: Symmetric, no curvature, ROM normal, no CVA tenderness. Abdomen: Soft, non-tender, bowel sounds active all four quadrants, no masses, no organomegaly. Extremities: Extremities normal, atraumatic, no cyanosis or edema. Pulses: 2+ and symmetric. Skin: Skin color, texture, tugor normal, no rashes or lesions. Neurologic: Alert oriented with slight confusion moving all his 4 extremity has generalized weakness. - Labs CBC & Chem 7: 12/02/18 07:18 12/02/18 07:18 Labs: Abnormal Lab Results - Last 24 Hours (Table) 12/01/18 12/01/18 12/01/18 Range/Units 11:12 16:53 20:50 RBC (4.30-5.90) m/uL Hgb (13.0-17.5) gm/dL Hct (39.0-53.0) % Chloride (98-107) mmol/L BUN (9-20) mg/dL Glucose (74-99) mg/dL POC Glucose (mg/dL) 146 H 131 H 274 H (75-99) mg/dL Total Protein (6.3-8.2) g/dL Albumin (3.5-5.0) g/dL 12/02/18 12/02/18 12/02/18 Range/Units 06:57 07:03 07:18 RBC 3.58 L (4.30-5.90) m/uL Hgb 11.5 L (13.0-17.5) gm/dL Hct 35.6 L (39.0-53.0) % Chloride (98-107) mmol/L BUN (9-20) mg/dL Glucose (74-99) mg/dL POC Glucose (mg/dL) 35 L 34 L (75-99) mg/dL Total Protein (6.3-8.2) g/dL Albumin (3.5-5.0) g/dL 12/02/18 12/02/18 12/02/18 Range/Units 07:18 07:18 11:02 RBC (4.30-5.90) m/uL Hgb (13.0-17.5) gm/dL Hct (39.0-53.0) % Chloride 109 H (98-107) mmol/L BUN 43 H (9-20) mg/dL Glucose 47 L* (74-99) mg/dL POC Glucose (mg/dL) 44 L 225 H (75-99) mg/dL Total Protein 6.0 L (6.3-8.2) g/dL Albumin 3.3 L (3.5-5.0) g/dL Microbiology - Last 24 Hours (Table) 11/29/18 20:20 Blood Culture - Preliminary Blood No Growth after 48 hours Assessment and Plan Plan: 1 acute respiratory failure: Combination of pneumonia, possible PE and possible mild neuro event. 2 possible pulmonary embolism: His d-dimer was elevated patient be hospitalized. His VQ scan was negative no sign of PE at this point and patient still been treated for right-sided pneumonia along with mild fluid overload and COPD excessive patient will continue his treatment in [facility] and switch all his meds to oral. 3 right-sided pneumonia: Most likely gram-negative for aspiration pneumonia especially with patient's current history was start patient on gram-negative coverage with Levaquin and continue updraft treatment [id number] continue O2 try to keep his pulse ox above 92 percentile. Pulmonary consultation appreciated. Start dysphagia diet, speech evaluation and continued speech evaluation in extended care facility. 4 altered mental status: CT of the brain doesn't show any acute abnormality will continue neuro evaluation in the meanwhile continue supplement and continue to treat any metabolic issues including hypoxia and infection. 5 acute kidney injury on chronic kidney disease more stage IV at this point continue gentle hydration and repeat BUN/creatinine. 6 asthma/COPD exacerbation: With patient's current complaint was start Solu- Medrol 40 mg every 6 hours combine with updraft treatment and O2. 7 hypothyroidism: Continue patient on levothyroxine 25 g daily. 8 diastolic congestive heart failure: More chronic continue patient on losartan and smaller dose of diuretics. 9 restless leg syndrome: Remain on ropinirole 2 mg daily at bedtime. 10 BPH: Patient is still on Flomax 0.4 mg twice a day. 11 type 2 diabetes: On insulin patient is hyper/hypoglycemic a lot based on his diet will continue titrate control while his in the hospital at this point. We will set up outpatient referral for endocrinology on return to extended care facility. 12 DVT prophylaxis: Patient will be on anticoagulation for now with switch to heparin subcutaneous if no PE. 13 GI prophylaxis: Patient will be on Pepcid 20 mg daily. CODE STATUS: Full code. Impression and plan of care have been directed as dictated by the signing physician. Alize Hawkins nurse practitioner acting as scribe for signing physician.
[2018-12-02] MEDS: LEVOFLOXACIN 250MG-D5W PMX 250 MG in DEXTROSE/WATER 1 50ML.BAG IVPB SCH (12:54)
[2018-12-02 13:44] LABS: Glucose,Whole Blood 196 mg/dL (75-99)
[2018-12-02] MEDS: ASPIRIN 81 MG PO SCH (16:17)
[2018-12-02] MEDS: FOLIC ACID 1 MG TAB PO SCH (16:18)
[2018-12-02] MEDS: FERROUS SULFATE 325 MG TAB PO SCH (16:18)
[2018-12-02] MEDS: VIT A,C & E-LUTEIN-MINERALS 1 EACH TAB PO SCH (16:18)
[2018-12-02] MEDS: THIAMINE 100 MG TAB PO SCH (16:18)
[2018-12-02] MEDS: MULTIVITAMINS, THERA 1 EACH TAB PO SCH (16:18)
--- NOTE | 2018-12-02 16:23 | XR ---
EXAMINATION TYPE: XR chest 1V portable DATE OF EXAM: 12/02/2018 COMPARISON: 11/29/2018 INDICATION: Short of breath TECHNIQUE: Frontal and lateral views of the chest are obtained. FINDINGS: The heart size is mildly prominent. The pulmonary vasculature is normal. The lungs are clear. IMPRESSION: 1. No acute pulmonary process. 2. Mild cardiomegaly
[2018-12-02 16:55] LABS: Glucose,Whole Blood 107 mg/dL (75-99)
[2018-12-02 20:12] LABS: Glucose,Whole Blood 243 mg/dL (75-99)
[2018-12-02] MEDS ORDERED: FUROSEMIDE 10 MG/ML 10 ML VIAL IV STA (20:26)
[2018-12-02] MEDS ORDERED: methylPREDNISolone SOD SUCCI 125 MG/2 ML VIAL IV STA (20:27)
[2018-12-02] MEDS ORDERED: INSULIN DETEMIR (LEVEMIR) 100 UNIT/ML SYR SQ SCH (21:00)
--- NOTE | 2018-12-02 21:00 | PN ---
PROGRESS NOTE He was seen on 12/02/2018. He has had some increase in his shortness of breath. PHYSICAL EXAMINATION: His respiratory rate is 18, pulse rate 84, temperature 97.9, O2 saturation on 2 L by nasal cannula is 98%. HEENT reveals pupils are equal. Chest reveals decreased breath sounds on the bases with expiratory wheeze. Cardiovascular system is S1, S2. Abdomen is soft. There is 1+ to 2+ pedal edema. Chest x-ray does not show any discrete infiltrate. White count of 7.1, hemoglobin of 11.5, sodium 143, potassium 3.9, chloride 109, bicarb 26, BUN 43, creatinine of 1.17, glucose was 47 this morning. IMPRESSION: At this time: 1. Shortness of breath that is multifactorial in part due to asthma with acute exacerbation. 2. Congestive heart failure. 3. Diabetes mellitus with episodes of hyper and hypoglycemia. At this point in time, would continue IV steroids, oral Lasix, but had an extra dose of Solu-Medrol 60 mg once and optimize his fluid status with single dose of Lasix 60 mg. Would increase his activity level. I agree with discharge planning to a situation where he has 24/7 coverage as he is unable to live by himself. Would continue him on his other current medications which were reviewed. MMODL / IJN: [id number] /
[2018-12-02] MEDS: TAMSULOSIN 0.4 MG CAP.ER.24H PO SCH (21:08)
[2018-12-02] MEDS: SENNOSIDES-DOCUSATE SODIUM 1 EACH TAB PO SCH (21:08)
[2018-12-02] MEDS: MIRTAZAPINE 15 MG TAB PO SCH (21:09)
[2018-12-02] MEDS: MELATONIN 5 MG TABLET PO SCH (21:09)
[2018-12-02] MEDS: SODIUM CHLORIDE 0.9% 1,000 ML IV SCH (21:10)
[2018-12-03] MEDS: GENTAMICIN 0.3% OPHTH DROPS 5 ML BTL LEFT EYE SCH ×2 (00:10→00:11)
[2018-12-03] MEDS: methylPREDNISolone SOD SUCCI 40 MG/ML 1 ML VIAL IV SCH ×3 (00:12→11:13)
[2018-12-03 02:21] LABS: Glucose,Whole Blood 343 mg/dL (75-99)
[2018-12-03 02:22] LABS: Glucose,Whole Blood 352 mg/dL (75-99)
[2018-12-03] MEDS: LEVOTHYROXINE 25 MCG TAB PO SCH (05:40)
[2018-12-03 05:47] VITALS: BP 154/83; RESP 18; TEMP 97.8
[2018-12-03 07:09] LABS: Glucose,Whole Blood 315 mg/dL (75-99)
[2018-12-03 07:42] LABS: Basophils % (A) 0 %; Eosinophils % (A) 0 %; HCT 33.2 % (39.0-53.0); HGB 10.7 gm/dL (13.0-17.5); Hypochromasia Slight; Lymphocytes # (A) 0.3 k/uL (1.0-4.8); Lymphocytes % (A) 7 %; MCH 31.9 pg (25.0-35.0); MCHC 32.1 g/dL (31.0-37.0); MCV 99.4 fL (80.0-100.0); Monocytes # (A) 0.1 k/uL (0-1.0); Monocytes % (A) 3 %; Neutrophils # (A) 4.3 k/uL (1.3-7.7); Neutrophils % (A) 90 %; Platelet Count 188 k/uL (150-450); RBC 3.34 m/uL (4.30-5.90); RDW 13.3 % (11.5-15.5); WBC 4.7 k/uL (3.8-10.6)
[2018-12-03] MEDS: INSULIN ASPART (NovoLOG) 100 UNIT/ML VIAL SQ SCH ×2 (07:48→11:30)
[2018-12-03] MEDS: METHYL SALICYLATE/MENTHOL CREAM 5 OZ TOPICAL SCH (07:53)
[2018-12-03] MEDS: BUDESONIDE 0.5 MG/2 ML NEBU INHALATION SCH (08:39)
[2018-12-03] MEDS: IPRATROPIUM-ALBUTEROL 3 ML NEB INHALATION SCH ×2 (08:39→13:46)
--- NOTE | 2018-12-03 11:04 | FL ---
EXAMINATION TYPE: FL barium swallow w video DATE OF EXAM: 12/03/2018 MODIFIED SWALLOW / DEGLUTITION STUDY CLINICAL HISTORY: Dysphagia. TECHNIQUE: Deglutition study is performed utilizing thin liquid barium, honey and nectar thick liqui d barium, barium thick applesauce, and barium coated cracker. A total of 1 minute 54 seconds of fluor oscopic time was utilized during procedure. Serial spot images are saved to PACS. COMPARISON: None. FINDINGS: The oral and pharyngeal phases show satisfactory initiation and propagation with all modali ties tested. Satisfactory mastication is seen with solid modalities tested. There is single episode o f transient penetration with thin liquid barium. There is no evidence of penetration or aspiration wi th any other modality tested including multiple additional attempts with thin liquid barium. Mild to moderate pharyngeal residue was appreciated with more viscous modalities. IMPRESSION: No aspiration observed. Please refer to speech therapist notes for further details if ne cessary.
[2018-12-03] MEDS: clonazePAM 0.5 MG TAB PO SCH (11:07)
[2018-12-03] MEDS: FINASTERIDE 5 MG TAB PO SCH (11:07)
[2018-12-03] MEDS: FUROSEMIDE 40 MG TAB PO SCH ×2 (11:07→15:11)
[2018-12-03] MEDS: LOSARTAN 50 MG TAB PO SCH (11:08)
[2018-12-03] MEDS: LEVOFLOXACIN 250MG-D5W PMX 250 MG in DEXTROSE/WATER 1 50ML.BAG IVPB SCH (11:14)
[2018-12-03 11:21] LABS: Glucose,Whole Blood 376 mg/dL (75-99)
--- NOTE | 2018-12-03 12:55 | P.DS ---
Providers Date of admission: 12/01/18 10:11 Expected date of discharge: 12/03/18 Attending physician: Gilbert Machuca Consults: 11/29/18 20:49 Consult Physician Stat Consulting Provider: Deb Ibarra Consult Reason/Comments: asthma exacerbation Do you want consulting provider notified?: Yes Primary care physician: [facility] Course: 83-year-old male with known from [facility] for the last 2 years with past medical history of type 2 diabetes on insulin, asthma/COPD, chronic kidney disease, hypothyroidism and BPH who was in the hospital last time in 2017 for fracture shoulder. Patient found in his bed on 11/29/2018 not feeling well, had mild altered mental status, more congested with worsening shortness of breath with quiet hypoxia as well. Patient was started on O2 some updraft treatment and expectorant with no help ended up coming to the emergency department at [facility] were was seen and evaluated with higher suspicion for pulmonary embolism his d-dimer was elevated his creatinine was over 1.8 not been able to do CTA patient also had workup for altered mental status with chest x-ray showed questionable left infiltrate in the right side his white blood cell was mildly elevated patient had negative urine test with CAT scan of the brain shows small vessel disease only with no acute abnormality consistent with bleed or stroke. 12/01: Patient was seen today with anticipation of discharge to [facility]. Discharge summary was completed with physical examination. Due to increased shortness of breath and possible aspiration pneumonia patient discharge was delayed. Family meeting was set up for 12/02. 12/02: Patient experienced an episode of hypoglycemia this morning. Patient also had increase shortness of breath with possible aspiration pneumonia. Discharge was delayed. A family meeting up occurred with daughter and son-in- law to discuss rationale of admission and treatment options. Discussion included the importance of patient not living on own and that he requires 24 hour care/supervision. Family and patient both verbalized understanding. Due to the frequent episodes of hypo-and hyperglycemia outpatient diabetes management will include appointment with endocrinology. Patient is resting comfortably in in chair. Without any complaints at this time. Patient has less congestion in no acute distress. 12/03: Patient has been afebrile, pulse ox is 95% on 2 L, pulse in 80s. WBC 4.7 , hemoglobin 10.7 and blood sugars are running very high in the 300s. Patient underwent modified barium swallow today and no aspiration was observed. Patient was placed back on a regular diet. Patient is anxious to go back to [facility] today and will be done today once arrangements are completed. Discharge diagnoses: 1 acute hypoxic respiratory failure secondary to acute COPD exacerbation, left basilar atelectasis, possible pneumonia 2 possible pulmonary embolism, ruled out by VQ scan 3 right-sided pneumonia, possble gram-negative for aspiration pneumonia 4 metabolic encephalopathy 5 acute kidney injury on chronic kidney disease more stage IV 6 COPD exacerbation 7 hypothyroidism 8 diastolic heart failure, chronic 9 restless leg syndrome 10 BPH 11 type 2 diabetes uncontrolled with hyperglycemia secondary to steroids Discharge plan: Return to [facility] Impression and plan of care have been directed as dictated by the signing physician. Amanda France nurse practitioner acting as scribe for signing physician. Patient Condition at Discharge: Good Plan - Discharge Summary Discharge Rx Participant: No New Discharge Prescriptions: New Budesonide [Pulmicort] 0.5 mg INHALATION RT-BID nebu Ipratropium-Albuterol Nebulize [Duoneb 0.5 mg-3 mg/3 ml Soln] 3 ml INHALATION RT-TID #0 ampul.neb Levofloxacin [Levaquin] 500 mg PO DAILY #5 tab predniSONE 10 mg PO DAILY #30 tab Continue Losartan Potassium 50 mg PO DAILY rOPINIRole HCL [Ropinirole HCl] 2 mg PO HS Insulin Glargine,Hum.rec.anlog [Lantus Solostar] 25 units SQ HS Levothyroxine Sodium [Synthroid] 25 mcg PO DAILY Multivitamins, Thera [Multivitamin (formulary)] 1 tab PO DAILY@1700 Cholecalciferol [Vitamin D3] 1,000 unit PO DAILY@1700 Albuterol Inhaler [Ventolin Hfa Inhaler] 2 puff INHALATION RT-Q4H PRN PRN Reason: Shortness Of Breath Melatonin 20 mg PO HS Tamsulosin HCl [Flomax] 0.8 mg PO HS@2100 Folic Acid 1 mg PO DAILY@1700 Aspirin EC [Ecotrin Low Dose] 81 mg PO DAILY@1700 Acetaminophen Tab [Tylenol] 500 - 1,000 mg PO Q6H PRN PRN Reason: Pain Bisacodyl [Dulcolax] 10 mg RECTAL DAILY PRN PRN Reason: Constipation HYDROcodone/APAP 5-325MG [[place] 5-325] 1 tab PO Q6H PRN PRN Reason: Pain Ibuprofen [Motrin] 200 mg PO DAILY PRN PRN Reason: SHOULDER PAIN INSULIN LISPRO (humaLOG) [humaLOG] See Protocol SQ ACHS Magnesium Hydroxide [Milk of Magnesia] 2,400 mg PO DAILY PRN PRN Reason: Constipation Menthol [Biofreeze] 1 applic TOPICAL BID Sennosides-Docusate Sodium [Senokot-S] 2 tab PO HS Thiamine [Vitamin B-1] 100 mg PO DAILY@1700 Vit C/E/Zn/Coppr/Lutein/Zeaxan [Preservision Areds 2 Softgel] 1 cap PO DAILY@ 1700 Benzonatate [Tessalon Perles] 100 - 200 mg PO Q6H PRN PRN Reason: Cough clonazePAM [KlonoPIN] 0.5 mg PO BID@0800,1700 Docusate [Colace] 100 mg PO BID PRN PRN Reason: Constipation Ferrous Sulfate [Iron (65 MG Elemental)] 325 mg PO DAILY@1700 Finasteride [Proscar] 5 mg PO DAILY Furosemide [Lasix] 40 mg PO BID@0800,1400 Ibuprofen [Motrin] 400 mg PO TID@0800,1400,2100 Menthol [Biofreeze] 1 applic TOPICAL BID PRN PRN Reason: HAND/KNEE PAIN Mirtazapine [Remeron] 15 mg PO HS Na Phos,M-B/Na Phos,Di-Ba [Fleet Adult] 133 ml RECTAL ONCE PRN PRN Reason: Constipation Discharge Medication List Insulin Glargine,Hum.rec.anlog [Lantus Solostar] 25 units SQ HS 08/24/14 [ History] Levothyroxine Sodium [Synthroid] 25 mcg PO DAILY 08/24/14 [History] Losartan Potassium 50 mg PO DAILY 08/24/14 [History] rOPINIRole HCL [Ropinirole HCl] 2 mg PO HS 08/24/14 [History] Albuterol Inhaler [Ventolin Hfa Inhaler] 2 puff INHALATION RT-Q4H PRN 02/17/17 [ History] Aspirin EC [Ecotrin Low Dose] 81 mg PO DAILY@169902/17/17 [History] Cholecalciferol [Vitamin D3] 1,000 unit PO DAILY@169902/17/17 [History] Folic Acid 1 mg PO DAILY@169902/17/17 [History] Melatonin 20 mg PO HS 02/17/17 [History] Multivitamins, Thera [Multivitamin (formulary)] 1 tab PO DAILY@169902/17/17 [ History] Tamsulosin HCl [Flomax] 0.8 mg PO HS@209902/17/17 [History] Acetaminophen Tab [Tylenol] 500 - 1,000 mg PO Q6H PRN 04/14/17 [History] Bisacodyl [Dulcolax] 10 mg RECTAL DAILY PRN 04/14/17 [History] HYDROcodone/APAP 5-325MG [[place] 5-325] 1 tab PO Q6H PRN 04/14/17 [History] INSULIN LISPRO (humaLOG) [humaLOG] See Protocol SQ ACHS 04/14/17 [History] Ibuprofen [Motrin] 200 mg PO DAILY PRN 04/14/17 [History] Magnesium Hydroxide [Milk of Magnesia] 2,400 mg PO DAILY PRN 04/14/17 [History] Menthol [Biofreeze] 1 applic TOPICAL BID 04/14/17 [History] Sennosides-Docusate Sodium [Senokot-S] 2 tab PO HS 04/14/17 [History] Thiamine [Vitamin B-1] 100 mg PO DAILY@169904/14/17 [History] Benzonatate [Tessalon Perles] 100 - 200 mg PO Q6H PRN 11/29/18 [History] Docusate [Colace] 100 mg PO BID PRN 11/29/18 [History] Ferrous Sulfate [Iron (65 MG Elemental)] 325 mg PO DAILY@169911/29/18 [History] Finasteride [Proscar] 5 mg PO DAILY 11/29/18 [History] Furosemide [Lasix] 40 mg PO BID@0800,1400 11/29/18 [History] Ibuprofen [Motrin] 400 mg PO TID@0800,1400,2100 11/29/18 [History] Menthol [Biofreeze] 1 applic TOPICAL BID PRN 11/29/18 [History] Mirtazapine [Remeron] 15 mg PO HS 11/29/18 [History] Na Phos,M-B/Na Phos,Di-Ba [Fleet Adult] 133 ml RECTAL ONCE PRN 11/29/18 [History ] Vit C/E/Zn/Coppr/Lutein/Zeaxan [Preservision Areds 2 Softgel] 1 cap PO DAILY@ 1700 11/29/18 [History] clonazePAM [KlonoPIN] 0.5 mg PO BID@0800,1700 11/29/18 [History] Budesonide [Pulmicort] 0.5 mg INHALATION RT-BID nebu 12/01/18 [Rx] Ipratropium-Albuterol Nebulize [Duoneb 0.5 mg-3 mg/3 ml Soln] 3 ml INHALATION RT -TID #0 ampul.neb 12/01/18 [Rx] Levofloxacin [Levaquin] 500 mg PO DAILY #5 tab 12/01/18 [Rx] predniSONE 10 mg PO DAILY #30 tab 12/01/18 [Rx] Follow up Appointment(s)/Referral(s): Gilbert Machuca MD [Primary Care Provider] - 1-2 days (at [facility]) Patient Instructions/Handouts: Prednisone (By mouth), Levofloxacin (By mouth), Asthma (DC) Activity/Diet/Wound Care/Special Instructions: Diet: consistent carbohydrates Discharge Disposition: TRANSFER TO SNF/ECF
[2018-12-03 14:10] VITALS: PULSE 80
--- NOTE | 2018-12-03 16:34 | PN ---
PROGRESS NOTE DATE OF SERVICE: 12/03/2018 He has been hemodynamically stable. He is less short of breath. He had a video fluoroscopic swallow eval, which showed no evidence of aspiration. PHYSICAL EXAMINATION: He was sitting up in bed. He was not in any respiratory distress. His respiratory rate is 18, pulse rate of 99, temperature 97.8, blood pressure 154/83, O2 saturation on 2 L by nasal cannula is 93%. HEENT reveals pupils are equal. No jugular venous distention. Chest reveals prolonged expiration. Wheeze only on forced exhalation. Cardiovascular system with an S1, S2. Abdomen is soft. There is trace pedal edema. IMPRESSION: 1. Asthma with acute exacerbation. 2. Congestive heart failure. 3. Diabetes mellitus. Agree with discharge planning on tapering dose of steroids, bronchodilators, and diuretics. Depending on how he does we shall make further changes to his care. We would be happy see him in the outpatient setting if need be. IRA / BAKARIN: [id number] /
[2018-12-04] MEDS ORDERED: LEVOFLOXACIN 500 MG TAB PO SCH (12:00)
== END 2018-12-03 16:25 | DRG 177 ==
LOC: EC 17:47 → 3NMEDONC 23:26 → OBSVTOIN 12-01 10:11
PROVIDERS: ADMIT Internal Medicine Geriatric Medicine; ATTEND Internal Medicine Geriatric Medicine
DX: J69.0 Pneumonitis due to inhalation of food and vomit (principal); J96.01 Acute respiratory failure with hypoxia; G93.41 Metabolic encephalopathy; N17.9 Acute kidney failure, unspecified; N18.4 Chronic kidney disease, stage 4 (severe); I13.0 Hypertensive heart and chronic kidney disease with heart failure and stage 1 through stage 4 chronic kidney disease, or unspecified chronic kidney disease; I50.32 Chronic diastolic (congestive) heart failure; J45.901 Unspecified asthma with (acute) exacerbation; J44.1 Chronic obstructive pulmonary disease with (acute) exacerbation; J44.0 Chronic obstructive pulmonary disease with (acute) lower respiratory infection; E11.649 Type 2 diabetes mellitus with hypoglycemia without coma; E11.65 Type 2 diabetes mellitus with hyperglycemia; E11.22 Type 2 diabetes mellitus with diabetic chronic kidney disease; E86.0 Dehydration; I45.10 Unspecified right bundle-branch block; J15.6 Pneumonia due to other Gram-negative bacteria; E03.9 Hypothyroidism, unspecified; E78.5 Hyperlipidemia, unspecified; N40.0 Benign prostatic hyperplasia without lower urinary tract symptoms; M13.0 Polyarthritis, unspecified; H35.30 Unspecified macular degeneration; E66.9 Obesity, unspecified; G25.81 Restless legs syndrome; T38.0X5A Adverse effect of glucocorticoids and synthetic analogues, initial encounter; Z68.26 Body mass index [BMI] 26.0-26.9, adult; Z79.890 Hormone replacement therapy; Z79.899 Other long term (current) drug therapy; Z79.82 Long term (current) use of aspirin; Z79.4 Long term (current) use of insulin; Z86.14 Personal history of Methicillin resistant Staphylococcus aureus infection; Z90.49 Acquired absence of other specified parts of digestive tract; Z90.01 Acquired absence of eye; Z87.891 Personal history of nicotine dependence; Z88.5 Allergy status to narcotic agent; Z88.8 Allergy status to other drugs, medicaments and biological substances; Z80.9 Family history of malignant neoplasm, unspecified
CPT/HCPCS: 36415; 70450; 71045; 71046; 74230; 78582; 80053; 81003; 83036; 83605; 83735; 83880; 84484; 85025; 85379; 85610; 85730; 87040; 87502; 93005; 94640; 94760; 96361; 96374; 99285

== ENCOUNTER 2021-06-30 06:36 | Emergency (ER) | payer MEDICARE, OTHER ==
[2021-06-30 06:46] VITALS: TEMP 97.6
--- NOTE | 2021-06-30 06:49 | ED ---
General Adult HPI - General Chief complaint: Fall Stated complaint: Fall Time Seen by Provider: 06/30/21 06:38 Source: EMS Mode of arrival: EMS - History of Present Illness Initial comments: 86-year-old male with a past medical history of asthma, IDDM, hyperlipidemia, hypertension presents to the emergency room for a chief complaint of head injury. Patient was getting out of bed with staff. His leg gave out and he hit his head on a dresser. He has a hematoma to the forehead. He did not lose consciousness. He does not take blood thinners. He does not have any other com plaints.Patient has no other complaints at this time including shortness of breath, chest pain, abdominal pain, nausea or vomiting, headache, or visual changes. - Related Data Home Medications Medication Instructions Recorded Confirmed Insulin Glargine,Hum.rec.anlog 15 units SQ BID 08/24/14 06/30/21 [Lantus Solostar Pen] Levothyroxine Sodium [Synthroid] 25 mcg PO DAILY 08/24/14 06/30/21 Losartan Potassium 50 mg PO DAILY 08/24/14 06/30/21 rOPINIRole HCL [Requip] 2 mg PO HS 08/24/14 06/30/21 Folic Acid 1 mg PO DAILY 02/17/17 06/30/21 Melatonin 10 mg PO HS 02/17/17 06/30/21 Tamsulosin HCl [Flomax] 0.8 mg PO HS@2100 02/17/17 06/30/21 Acetaminophen Tab [Tylenol] 500 - 1,000 mg PO Q6H PRN 04/14/17 06/30/21 HYDROcodone/APAP 5-325MG [Bolivar 1 tab PO Q6H PRN 04/14/17 06/30/21 5-325] INSULIN LISPRO (humaLOG) [humaLOG] See Protocol SQ ACHS 04/14/17 06/30/21 Sennosides-Docusate Sodium 2 tab PO HS 04/14/17 06/30/21 [Senokot-S] bisacodyL [Dulcolax] 10 mg RECTAL DAILY PRN 04/14/17 06/30/21 Docusate [Colace] 100 mg PO BID PRN 11/29/18 06/30/21 Furosemide [Lasix] 40 mg PO BID@0800,1400 11/29/18 06/30/21 Ibuprofen [Motrin] 400 mg PO TID 11/29/18 06/30/21 Menthol [Biofreeze] 1 applic TOPICAL BID PRN 11/29/18 06/30/21 Mirtazapine [Remeron] 30 mg PO HS 11/29/18 06/30/21 Na Phos,M-B/Na Phos,Di-Ba [Fleet 133 ml RECTAL ONCE PRN 11/29/18 06/30/21 Adult] clonazePAM [KlonoPIN] 0.5 mg PO HS 11/29/18 06/30/21 Acetaminophen Suppository [Tylenol 650 mg RECTAL Q4H PRN 06/30/21 06/30/21 Suppository] Albuterol Sulfate [Ventolin HFA] 2 puff INHALATION RT-Q4H PRN 06/30/21 06/30/21 Ipratropium-Albuterol Nebulize 3 ml INHALATION RT-Q6H PRN 06/30/21 06/30/21 [Duoneb 0.5 mg-3 mg/3 ml Soln] Magnesium Hydroxide [Milk of 7,200 mg PO Q48H PRN 06/30/21 06/30/21 Magnesia Concentrate] Ondansetron [Zofran] 4 mg PO Q8H PRN 06/30/21 06/30/21 Zofran 4mg/2ml 4 mg IM Q8H PRN 06/30/21 06/30/21 Allergies Allergy/AdvReac Type Severity Reaction Status Date / Time SALONI Inhibitors Allergy Unknown Unknown Verified 06/30/21 07:26 enalaprilat [From Vasotec] Allergy Unknown Unknown Verified 06/30/21 07:26 tramadol AdvReac Hallucinati Verified 06/30/21 07:26 ons ANTICOLINERGIC MEDS Allergy Unknown Uncoded 06/30/21 07:26 Review of Systems ROS Statement: Those systems with pertinent positive or pertinent negative responses have been documented in the HPI. ROS Other: All systems not noted in ROS Statement are negative. Past Medical History Past Medical History: Asthma, Diabetes Mellitus, Eye Disorder, Hyperlipidemia, Hypertension, Prostate Disorder, Thyroid Disorder Additional Past Medical History / Comment(s): Recent UTI with ABX, fell 02/18/17 with L shoulder dislocation with surgery, IDDM type II, hypothyroid, generalized arthritis, restless leg syndrome, BPH, occasional vertigo, L eye chnbbf-dnotljithbk-omidk glass eye, mac degeneration R eye-gets injections. History of Any Multi-Drug Resistant Organisms: Unobtainable, MRSA Date of last positivie culture/infection: 04/16/17 MDRO Source:: urine Past Surgical History: Cholecystectomy, Orthopedic Surgery Additional Past Surgical History / Comment(s): 02/18/17 closed reduction L shoulder, 2013 Open cholecystectomy, colonoscopies x 3, L eye numerous surgeries and eventual enucleation. Past Anesthesia/Blood Transfusion Reactions: No Reported Reaction Past Psychological History: No Psychological Hx Reported Smoking Status: Unknown if ever smoked Past Alcohol Use History: Daily Past Drug Use History: None Reported - Past Family History Father Family Medical History: No Reported History Mother Family Medical History: Cancer Additional Family Medical History / Comment(s): Mother of metastatic cancer at the age of 54yrs. old. General Exam General appearance: alert, in no apparent distress Head exam: Absent: atraumatic (Patient has hematoma with abrasion noted to forehead) Eye exam: Present: normal appearance, PERRL, EOMI. Absent: scleral icterus, conjunctival injection ENT exam: Present: normal exam, mucous membranes moist Neck exam: Present: normal inspection, full ROM. Absent: tenderness Respiratory exam: Present: normal lung sounds bilaterally. Absent: respiratory distress, wheezes Cardiovascular Exam: Present: regular rate, normal rhythm, normal heart sounds GI/Abdominal exam: Present: soft, normal bowel sounds. Absent: distended, tenderness Neurological exam: Present: alert, other (GCS 15) Course Vital Signs 06/30/21 06:37 Temperature 97.6 F Pulse Rate 70 Respiratory 18 Rate Blood Pressure 104/55 O2 Sat by Pulse 99 Oximetry Medical Decision Making - Medical Decision Making Vitals are stable. Patient does have hematoma to scalp. Fall was mechanical. Leg gave out which is not abnormal. No weakness. CT brain shows frontal scalp hematoma without acute intracranial abnormality seen. Mild to moderate ventricu lomegaly stable or minimally increased from 2019. There is also mild superior end plate deformity of T1 that is age indeterminant. Suspect chronic injury here. There is no focal pain at this level. There is also degenerative changes as well as severe opacification of the left-sided paranasal sinuses suggestive of obstruction at the left ostiomeatal complex recommend outpatient ENT referral. Patient will follow up with primary care for review of results and possible ENT referral and return for any worsening symptoms. Disposition Clinical Impression: Fall, Head injury, Hematoma of frontal scalp Disposition: HOME SELF-CARE Condition: Good Instructions (If sedation given, give patient instructions): Head Injury (ED) Additional Instructions: Give Tylenol for pain as needed. Follow-up with primary care in 1 to 2 days. Return to the emergency room for any worsening symptoms Is patient prescribed a controlled substance at d/c from ED?: No Referrals: Gilbert Machuca MD [Primary Care Provider] - 1-2 days Time of Disposition: 08:17
[2021-06-30] MEDS ORDERED: ACETAMINOPHEN TAB 325 MG TAB PO STA (07:38)
--- NOTE | 2021-06-30 07:48 | CT ---
EXAMINATION TYPE: CT brain brendon wo con DATE OF EXAM: 06/30/2021 COMPARISON: Brain 11/29/2018 HISTORY: 86 year-old male head injury, pain after Fall CT DLP: 1430.1 mGycm Automated exposure control for dose reduction was used. Technique: Examination of the head was done in axial plane without intravenous contrast. Coronal and sagittal reconstructions performed. CT of the cervical spine was obtained in axial plane without intravenous injection of contrast mater ial. Coronal and sagittal reformatted images were obtained from the axial views for evaluation of f ractures, spinal alignment and canal. FINDINGS: Head: Anterior frontal scalp hematoma. No underlying calvarial fracture. There is no evidence of acute int racranial hemorrhage, acute ischemic changes, mass, mass-effect, or extra-axial fluid collection. Th ere is no effacement of cerebral sulci or basal subarachnoid cisterns. Mild cerebral cortical atrophy. Atherosclerotic calcifications of the carotid siphons. Mild patchy ri ght ventricular white matter hypodensities. Car's ratio is 0.37 with eabv-sk-spjpiurz ventriculomegaly. This is stable to minimally increased co mpared to 0.36, previously. There is no midline shift. Horowitz-white matter distinction is preserved. Severe mucosal thickening and opacification left maxillary sinus persists. Complete opacification ant erior left ethmoid air cells and left frontal sinus. Mastoid air cells well pneumatized. Left left gl obe prosthesis. Cervical spine: No craniocervical junction abnormalities, predental space widening, or prevertebral soft tissue swell ing. Some degenerative ankylosis at the C1 dens articulation. Reversal of the normal cervical lordosis centered at C5-C6 with disc osteophyte complex tear mildly n arrowing the spinal canal. Trace grade 1 retrolisthesis also noted at this level. Multilevel hypertrophic facet and uncovertebral joint arthropathy. Some scattered degenerative interb portia ankylosis is noted. Mild superior endplate deformity of T1 is age indeterminate. No paravertebral soft tissue swelling or discrete fracture line is seen. Severe disc/endplate degenerative change C4-C7 levels. Variable mild to moderate neural foraminal stenosis throughout. Sagittal and coronal reformatted images confirm above findings. COMBINED IMPRESSION: 1. Frontal scalp hematoma. No acute intracranial abnormality seen. 2. Mild to moderate ventriculomegaly likely in part due to central cerebral atrophy. This is stable t o minimally increased from 11/29/2018. Saxena ratio 0.37. Correlate to exclude a component of NPH. 3. Mild superior endplate deformity of T1 is age indeterminate. Suspect a chronic injury here given t he lack of surrounding soft tissue swelling or discrete fracture line. Correlate for any focal pain a t this level. Consider MRI follow-up if concern for acute injury here. No unstable fracture is seen. 4. Moderate to advanced multilevel spondylotic change. Degenerative grade 1 retrolisthesis C5-C6. Deg enerative bony ankylosis across a few levels. 5. Severe opacification left-sided paranasal sinuses suggests obstruction at the left osteomeatal com plex. Recommend outpatient ENT referral.
[2021-06-30 08:20] VITALS: RESP 17
[2021-06-30 09:54] VITALS: BP 107/72; PULSE 78
== END 2021-06-30 09:54 | disposition home or self-care (01) ==
LOC: EC 06:36
DX: S00.03XA Contusion of scalp, initial encounter (principal); S09.90XA Unspecified injury of head, initial encounter; J45.909 Unspecified asthma, uncomplicated; E11.9 Type 2 diabetes mellitus without complications; I10 Essential (primary) hypertension; Z79.4 Long term (current) use of insulin; E03.9 Hypothyroidism, unspecified; Z79.890 Hormone replacement therapy; Z79.899 Other long term (current) drug therapy; Z79.51 Long term (current) use of inhaled steroids; Z88.5 Allergy status to narcotic agent; Z88.8 Allergy status to other drugs, medicaments and biological substances; W01.198A Fall on same level from slipping, tripping and stumbling with subsequent striking against other object, initial encounter; Y92.89 Other specified places as the place of occurrence of the external cause
CPT/HCPCS: 70450; 72125; 99284